=== PATIENT | female | born 1950 | race Caucasian/White ===

== ENCOUNTER 2016-05-24 22:19 | Emergency (ER) | payer OTHER ==
[~2016-05-24] VITALS: Ht 152.4 cm; Wt 93.5 kg
[~2016-05-24 22:19] MED LIST: AMLO5 PO; BRIL90TA PO; CAPT25TA2 PO; CHLO25CA2 PO; MELO-1 PO; METF500T PO; METO50TA PO; PANT20 PO; SIMV20TA PO; VENTAER INH
[2016-05-24 22:25] VITALS: BP 182/104; PULSE 100; RESP 20; TEMP 98.4
[2016-05-24 23:30] VITALS: BP 164/76; PULSE 100; O2SAT 97
[2016-05-24] MEDS ORDERED: [UNRECOGNIZED DRUG - REMARK] (23:39)
[2016-05-24] MEDS ORDERED: ACETAMINOPHEN 500 MG CPLT PO ONE (23:45)
[2016-05-24] MEDS ORDERED: guaiFENesin/DEXTROMETHORPHAN 200 MG/20 MG/10 ML CUP PO ONE (23:45)
[2016-05-24 23:53] LABS: AUTOMATED NEUTROPHIL # 8.3 TH/MM3 (1.8-7.7); BASOPHIL # 0.2 TH/MM3 (0-0.2); BASOPHIL % 1.2 % (0.0-2.0); EOSINOPHIL # 0.5 TH/MM3 (0-0.4); EOSINOPHIL % 4.2 % (0.0-4.0); HEMATOCRIT 39.7 % (35.0-46.0); HEMO FLAGS DIFF FINAL; LYMPH % 23.7 % (9.0-44.0); LYMPHOCYTE # 3.1 TH/MM3 (1.0-4.8); MEAN CELL VOLUME 81.3 FL (80.0-100.0); MEAN CORPUSCULAR HEMOGLOBIN 26.3 PG (27.0-34.0); MEAN CORPUSCULAR HGB CONC 32.4 % (32.0-36.0); NEUT % 64.9 % (16.0-70.0); PLATELET COUNT 572 TH/MM3 (150-450); RED BLOOD COUNT 4.88 MIL/MM3 (4.00-5.30); RED CELL DISTRIBUTION WIDTH 15.6 % (11.6-17.2); WHITE BLOOD COUNT 12.9 TH/MM3 (4.0-11.0)
--- NOTE | 2016-05-24 23:53 | PD ---
HPI Chief Complaint: Cold / Flu Symptoms Time Seen by Provider: 23:25 Travel History International Travel<30 days: No Contact w/Intl Traveler<30days: No Traveled to known affect area: No History of Present Illness HPI 65yo F with PMH of CAD, anxiety, noncardiac chest pain presents to the ED with c /o flu like symptoms. +Muscle aches. Pain is complaining of productive cough, tactile fever, bilateral ear pain, throat pain, and chest pain. States chest pain is across her chest and worst with coughing. Denies any significant sob, n /v, abdominal pain, focal weakness or numbness. PFSH Past Medical History Hx Anticoagulant Therapy: Yes Anemia: Yes Arthritis: Yes Asthma: No Autoimmune Disease: No Blood Disorders: Yes (anemia) Bipolar Disorder: Yes Anxiety: Yes Depression: Yes Heart Rhythm Problems: Yes Cancer: Yes Cardiac Catheterization: Yes Cardiovascular Problems: Yes High Cholesterol: No Chemotherapy: No Chest Pain: Yes Congestive Heart Failure: No COPD: No Cerebrovascular Accident: No Coronary Artery Disease: Yes Dementia: Yes Diabetes: Yes Patient Takes Glucophage: Yes Diminished Hearing: Yes (BILATERAL- [place]) Diverticulitis: Yes Endocrine: Yes Gastrointestinal Disorders: Yes GERD: Yes Glaucoma: No Genitourinary: Yes Headaches: Yes Hepatitis: No Hiatal Hernia: No Hypertension: Yes Immune Disorder: No Implanted Vascular Access Dvce: Yes Kidney Stones: Yes Musculoskeletal: Yes Neurologic: Yes Reproductive: No Respiratory: Yes (ASTHMA) Integumentary: Yes (chronic rash) Immunizations Current: No Migraines: No Myocardial Infarction: No Radiation Therapy: No Renal Failure: No Seizures: No Sickle Cell Disease: No Sleep Apnea: No Thyroid Disease: No Ulcer: No PNEUMOCCOCAL Vaccine (Year): 2 Menopausal: Yes : 1 Para: 1 Past Surgical History Abdominal Surgery: Yes (SPLENECTOMY, COLON RESECTION) AICD: No Appendectomy: Yes Arteriovenous Shunt: No Body Medical Devices: STENT Cardiac Surgery: Yes (STENT PLACED [place] CORONARY ARTERY SEPTEMBER 2006) Cholecystectomy: Yes Coronary Stent: Yes (09/09, 12/16) Ear Surgery: No Endocrine Surgery: No Eye Surgery: No Genitourinary Surgery: No Gynecologic Surgery: Yes (hysterectomy) Hysterectomy: Yes Insulin Pump: No Joint Replacement: No Neurologic Surgery: No Oral Surgery: Yes (ALL TEETH REMOVED) Pacemaker: No Thoracic Surgery: Yes (2005--BREAST R LUMPECTOMY) Other Surgery: Yes (R PARTIAL MASTECTOMY) Social History Alcohol Use: No Tobacco Use: No Substance Use: No Allergies-Medications (Allergen,Severity, Reaction): Coded Allergies: Cipro (Verified Allergy, Severe, HIVES, 02/01/16) Doxycycline (Verified Allergy, Severe, 'BUMPS', 02/01/16) Egg Allergy (Verified Allergy, Severe, Hives, 02/01/16) Haldol (Verified Allergy, Severe, ITCHING AND SWELLING, 02/01/16) Iodine (Verified Allergy, Severe, THROAT SWELLS, 02/01/16) Iohexol (OMNIPAQUE) (Verified Allergy, Severe, ITCHING AND SWELLING, 01/31) Penicillin (Verified Allergy, Severe, THROAT SWELLS, 02/01/16) Seafood (Verified Allergy, Severe, SWELLING, 02/01/16) Macrobid (Verified Allergy, Mild, Hives, 02/01/16) Reported Meds & Prescriptions Reported Meds & Active Scripts Active Proventil Hfa 6.7 GM Inh (Albuterol Sulfate) 90 Mcg/Act Aer 2 Puff INH Q4-6H PRN Zithromax Z-Damon (Azithromycin) 250 Mg Dspk 250 Mg PO DIRECTED 500 MG (2 tabs) day 1, then 1 tab days 2-5. Reported [blood tinners] Simvastatin 20 Mg Tab 20 Mg PO HS Protonix (Pantoprazole Sodium) 20 Mg Tab 20 Mg PO DAILY Metoprolol Tartrate 50 Mg Tab 50 Mg PO BID Metformin (Metformin HCl) 500 Mg Tab 500 Mg PO BIDPC With meals Meloxicam 15 Mg Tab 15 Mg PO DAILY Chlordiazepoxide (Chlordiazepoxide HCl) 25 Mg Cap 25 Mg PO TID PRN Captopril 25 Mg Tab 25 Mg PO BID Take 1 hr before meals. Brilinta (Ticagrelor) 90 Mg Tab 90 Mg PO BID Norvasc (Amlodipine Besylate) 5 Mg Tab 5 Mg PO DAILY Ventolin Hfa 18 GM Inh (Albuterol Sulfate) 90 Mcg/Act Aer 2 Puff INH Q6H PRN Review of Systems Except as stated in HPI: all other systems reviewed are Neg Physical Exam Narrative GENERAL: 65yo F not in distress. SKIN: Warm and dry. HEAD: Atraumatic. Normocephalic. EYES: Pupils equal and round. No scleral icterus. No injection or drainage. ENT: TM wnl bilaterally. Throat: Clear. Uvula midline. NECK: Trachea midline. No JVD. CARDIOVASCULAR: Regular rate and rhythm. No murmur appreciated. RESPIRATORY: No accessory muscle use. Clear to auscultation. Breath sounds equal bilaterally. CHEST WALL: +TTP across the chest wall. GASTROINTESTINAL: Abdomen soft, non-tender, nondistended. No rebound tenderness or guarding. MUSCULOSKELETAL: No obvious deformities. No clubbing. No cyanosis. No edema. NEUROLOGICAL: Awake and alert. No obvious cranial nerve deficits. Motor grossly within normal limits. Normal speech. PSYCHIATRIC: Anxious. Data Data Last Documented VS Vital Signs Date Time Temp Pulse Resp B/P Pulse Ox O2 Delivery O2 Flow Rate FiO2 05/25/16 03:01 98.1 84 172/90 94 Room Air 05/24/16 22:25 20 Orders Basic Metabolic Panel (Bmp) (05/24/16 23:36) Ckmb (Isoenzyme) Profile (05/24/16 23:36) Complete Blood Count With Diff (05/24/16 23:36) Prothrombin Time / Inr (Pt) (05/24/16 23:36) Act Partial Throm Time (Ptt) (05/24/16 23:36) Troponin I (05/24/16 23:36) Chest, Single Ap (05/24/16 23:36) Ecg Monitoring (05/24/16 23:36) Iv Access Insert/Monitor (05/24/16 23:36) Oximetry (05/24/16 23:36) Influenzae A/B Antigen (05/24/16 23:36) Lactic Acid Sepsis Protocol (05/24/16 23:36) Guaifen-Dm 200-20 Mg/10 Ml Liq (Robituss (05/24/16 23:45) Acetaminophen (Tylenol) (05/24/16 23:45) Azithromycin Inj (Zithromax Inj) (05/25/16 01:45) Sodium Chlorid 0.9% 500 Ml Inj (Ns 500 M (05/25/16 02:00) Azithromycin (Zithromax) (05/25/16 02:00) Electrocardiogram (05/24/16 ) Labs Laboratory Tests Test 05/24/16 05/25/16 23:41 02:00 White Blood Count 12.9 TH/MM3 Red Blood Count 4.88 MIL/MM3 Hemoglobin 12.8 GM/DL Hematocrit 39.7 % Mean Corpuscular Volume 81.3 FL Mean Corpuscular Hemoglobin 26.3 PG Mean Corpuscular Hemoglobin 32.4 % Concent Red Cell Distribution Width 15.6 % Platelet Count 572 TH/MM3 Mean Platelet Volume 8.0 FL Neutrophils (%) (Auto) 64.9 % Lymphocytes (%) (Auto) 23.7 % Monocytes (%) (Auto) 6.0 % Eosinophils (%) (Auto) 4.2 % Basophils (%) (Auto) 1.2 % Neutrophils # (Auto) 8.3 TH/MM3 Lymphocytes # (Auto) 3.1 TH/MM3 Monocytes # (Auto) 0.8 TH/MM3 Eosinophils # (Auto) 0.5 TH/MM3 Basophils # (Auto) 0.2 TH/MM3 CBC Comment DIFF FINAL Differential Comment Prothrombin Time 10.0 SEC Prothromb Time International 0.9 RATIO Ratio Activated Partial 30.3 SEC Thromboplast Time Sodium Level 139 MEQ/L Potassium Level 4.0 MEQ/L Chloride Level 104 MEQ/L Carbon Dioxide Level 25.4 MEQ/L Anion Gap 10 MEQ/L Blood Urea Nitrogen 12 MG/DL Creatinine 0.77 MG/DL Estimat Glomerular Filtration 75 ML/MIN Rate Random Glucose 309 MG/DL Lactic Acid Level 2.7 mmol/L 2.5 mmol/L Calcium Level 8.3 MG/DL Total Creatine Kinase 48 U/L Troponin I LESS THAN 0.02 NG/ML MDM Medical Decision Making Medical Screen Exam Complete: Yes Emergency Medical Condition: Yes Interpretation(s) EKG: NSR 84bpm. LAD. LVH. Mild ST depression I, aVL. Differential Diagnosis Influenza vs. URI vs. pneumonia vs. atypical chest pain Narrative Course 65yo F with flu like symptoms. Pt states her family is sick. Pt does have CAD and well known to Dr. Engel. Cardiac cath 09/20/14 showed patent LAD, severe distal LAD and severe obtuse marginal bifurcation lesion. Pt's chest pain is very atypical and more musculoskeletal related to coughing. Pt is afebrile but mildly tachycardic with 100bpm at triage. Saturating at 97% on RA. Pt seen at the end of my shift so sign out to next team to follow up labs including cardiac enzyme, lactic acid, CXR, influenza and reevaluate. Pt given acetaminophen, robitussin. Diagnosis Primary Impression: Atypical chest pain Scripts Albuterol 6.7 GM Inh (Proventil Hfa 6.7 GM Inh)90 Mcg/Act Aer2 Puff INH Q4-6H PRN (SHORTNESS OF BREATH) #1 INHALER Ref 0 Prov:Caroline Chapman MD 05/25/16 Azithromycin (Zithromax Z-Damon)250 Mg [id number] Mg PO DIRECTED #1 DSPK Ref 0 500 MG (2 tabs) day 1, then 1 tab days 2-5. Prov:Caroline Chapman MD 05/25/16 Yun Vines DO May 24, 2016 23:53
[2016-05-25 00:04] LABS: CHLORIDE 104 MEQ/L (98-107); SODIUM (NA) 139 MEQ/L (136-145)
[2016-05-25 00:07] LABS: ANION GAP 10 MEQ/L (5-15); BICARBONATE 25.4 MEQ/L (21.0-32.0); BLOOD UREA NITROGEN 12 MG/DL (7-18)
[2016-05-25 00:09] LABS: APTT (PATIENT) 30.3 SEC (24.3-30.1); INTERNATIONAL NORMALIZED RATIO 0.9 RATIO
--- NOTE | 2016-05-25 00:09 | PD ---
Physical Exam Date Seen by Provider: May 25, 2016 Time Seen by Provider: 00:09 Narrative Accepted in transfer of care from Dr. Vines GENERAL: Well-developed well-nourished female in no acute distress no respiratory distress SKIN: Warm and dry. HEAD: Normocephalic. EYES: No scleral icterus. No injection or drainage. NECK: Supple, trachea midline. No JVD or lymphadenopathy. CARDIOVASCULAR: Regular rate and rhythm without murmurs, gallops, or rubs. Chest wall: Tender to palpation and reproduces pain of presentation RESPIRATORY: Breath sounds equal bilaterally. No accessory muscle use. GASTROINTESTINAL: Abdomen soft, non-tender, nondistended. MUSCULOSKELETAL: No cyanosis, or edema. BACK: Nontender without obvious deformity. No CVA tenderness. Data Data Last Documented VS Vital Signs Date Time Temp Pulse Resp B/P Pulse Ox O2 Delivery O2 Flow Rate FiO2 05/24/16 23:36 Room Air 05/24/16 23:30 100 164/76 97 05/24/16 22:25 98.4 20 Orders Basic Metabolic Panel (Bmp) (05/24/16 23:36) Ckmb (Isoenzyme) Profile (05/24/16 23:36) Complete Blood Count With Diff (05/24/16 23:36) Prothrombin Time / Inr (Pt) (05/24/16 23:36) Act Partial Throm Time (Ptt) (05/24/16 23:36) Troponin I (05/24/16 23:36) Chest, Single Ap (05/24/16 23:36) Ecg Monitoring (05/24/16 23:36) Iv Access Insert/Monitor (05/24/16 23:36) Oximetry (05/24/16 23:36) Influenzae A/B Antigen (05/24/16 23:36) Lactic Acid Sepsis Protocol (05/24/16 23:36) Guaifen-Dm 200-20 Mg/10 Ml Liq (Robituss (05/24/16 23:45) Acetaminophen (Tylenol) (05/24/16 23:45) Azithromycin Inj (Zithromax Inj) (05/25/16 01:45) Sodium Chlorid 0.9% 500 Ml Inj (Ns 500 M (05/25/16 02:00) Azithromycin (Zithromax) (05/25/16 02:00) Labs Laboratory Tests Test 05/24/16 05/25/16 23:41 02:00 White Blood Count 12.9 TH/MM3 Red Blood Count 4.88 MIL/MM3 Hemoglobin 12.8 GM/DL Hematocrit 39.7 % Mean Corpuscular Volume 81.3 FL Mean Corpuscular Hemoglobin 26.3 PG Mean Corpuscular Hemoglobin 32.4 % Concent Red Cell Distribution Width 15.6 % Platelet Count 572 TH/MM3 Mean Platelet Volume 8.0 FL Neutrophils (%) (Auto) 64.9 % Lymphocytes (%) (Auto) 23.7 % Monocytes (%) (Auto) 6.0 % Eosinophils (%) (Auto) 4.2 % Basophils (%) (Auto) 1.2 % Neutrophils # (Auto) 8.3 TH/MM3 Lymphocytes # (Auto) 3.1 TH/MM3 Monocytes # (Auto) 0.8 TH/MM3 Eosinophils # (Auto) 0.5 TH/MM3 Basophils # (Auto) 0.2 TH/MM3 CBC Comment DIFF FINAL Differential Comment Prothrombin Time 10.0 SEC Prothromb Time International 0.9 RATIO Ratio Activated Partial 30.3 SEC Thromboplast Time Sodium Level 139 MEQ/L Potassium Level 4.0 MEQ/L Chloride Level 104 MEQ/L Carbon Dioxide Level 25.4 MEQ/L Anion Gap 10 MEQ/L Blood Urea Nitrogen 12 MG/DL Creatinine 0.77 MG/DL Estimat Glomerular Filtration 75 ML/MIN Rate Random Glucose 309 MG/DL Lactic Acid Level 2.7 mmol/L 2.5 mmol/L Calcium Level 8.3 MG/DL Total Creatine Kinase 48 U/L Troponin I LESS THAN 0.02 NG/ML [facility] Medical Record Reviewed: Yes Supervised Visit with DOMENIC: No Interpretation(s) Last Impressions Chest X-Ray 05/24/16 5776 Signed Impressions: Service Date/Time: Tuesday, May 24, 2016 23:45 - CONCLUSION: No acute disease. Reynaldo Mitchell MD CBC & BMP Diagram 05/24/16 23:41 Vital Signs Date Time Temp Pulse Resp B/P Pulse Ox O2 Delivery O2 Flow Rate FiO2 05/24/16 23:36 Room Air 05/24/16 23:30 100 164/76 97 Room Air 05/24/16 22:25 98.4 100 20 182/104 ck: 48, not elevated; troponin I: 0.02, not elevated Differential Diagnosis Please refer to Dr. Vines's dictation Narrative Course Accepted in transfer of care from Dr. Vines for follow-up of pending labs and patient disposition Chest x-ray reveals no lobar infiltrate; EKG reveals no ST elevation or injury pattern; cardiac enzymes are normal range; white count is elevated 12,900 and lactic acid is elevated, at this time is unclear but seems to be respiratory possible bronchitis. Patient ordered azithromycin 500 mg IV but patient refused IV antibiotics states that this is her heart enzymes are normal she wants to go home family at bedside; patient still administered NS bolus 500 ML and repeat bedside glucose obtained and patient administered oral azithromycin. They shouldn't does meet SIRS criteria based on her heart rate and her white blood cell count no obvious source but suspect that her infection source is a bronchitis possible pneumonia that is just not being detected By chest x-ray. Patient appears slightly dry renal function is normal mild elevated lactic of 2.7 addressed with hydration. Patient and family desirous of being discharged to home patient wasn't able antibiotic will give her a trial of outpatient therapy with close follow-up with primary care provider. Lactic acid deceasing with hydration ( just initiated shortly before obtaining second lactic specimen) . Diagnosis Primary Impression: Acute bronchitis Additional Impression: Diabetes Referrals: Primary Care Physician 1 day Patient Instructions: General Instructions Additional Instruction: Increase fluid hydration Complete course of antibiotic as prescribed Use inhaler as needed for wheezing cough/shortness of breath Monitor temperature every 4 hours with thermometer and take as needed acetaminophen/Tylenol every 4 hours for fever 100.4F or greater Follow-up with primary care provider call office in a.m. to schedule follow-up appointment Use [id number] Robitussin for cough Return to the emergency department for any concerns such as fever pain shortness of breath vomiting or change in condition Take chronic medications as chronically prescribed and monitor blood sugars closely Follow diabetic diet Med/Other Pt SpecificInfo: Prescription(s) given Scripts Albuterol 6.7 GM Inh (Proventil Hfa 6.7 GM Inh)90 Mcg/Act Aer2 Puff INH Q4-6H PRN (SHORTNESS OF BREATH) #1 INHALER Ref 0 Prov:Caroline Chapman MD 05/25/16 Azithromycin (Zithromax Z-Damon)250 Mg [id number] Mg PO DIRECTED #1 DSPK Ref 0 500 MG (2 tabs) day 1, then 1 tab days 2-5. Prov:Caroline Chapman MD 05/25/16 Disposition: 01 DISCHARGE HOME Condition: Stable Caroline Chapman MD May 25, 2016 00:09
[2016-05-25 00:10] LABS: GLOMERULAR FILTRATION RATE 75 ML/MIN (>89)
[2016-05-25 00:19] LABS: CREATINE KINASE 48 U/L (26-192)
--- NOTE | 2016-05-25 00:19 | RADHPO ---
EXAM DATE/TIME: 05/24/2016 23:45 [facility] COMPARISON: CHEST SINGLE AP, February 01, 2016, 1:57. INDICATIONS : Chest pain for 12 hours MEDICAL HISTORY : Diabetes mellitus type II. Cardiovascular disease SURGICAL HISTORY : None. ENCOUNTER: Initial ACUITY: 1 day PAIN SCORE: 6/10 LOCATION: Bilateral chest FINDINGS: Cardiomegaly. Clear lungs. Osseous structures are intact. Aortic calcification. Surgical clips overli e the right lower chest. CONCLUSION: No acute disease. Reynaldo Mitchell MD on May 25, 2016 at 0:17 Board Certified Radiologist. This report was verified electronically.
[2016-05-25] MEDS ORDERED: AZITHROMYCIN INJ 500 MG in SODIUM CHLOR 0.9% 250 ML INJ 250 ML IV ONE (01:45)
[2016-05-25 01:49] LABS: LACTIC ACID GHOST NOT REPORTABLE
[2016-05-25] MEDS ORDERED: SODIUM CHLORID 0.9% 500 ML INJ 500 ML IV ONE (02:00)
[2016-05-25] MEDS ORDERED: AZITHROMYCIN 250 MG TAB PO ONE (02:00)
[2016-05-25] MEDS ORDERED: ZITHTAB PO (02:51)
[2016-05-25] MEDS ORDERED: ALBU6.7H INH (02:51)
[2016-05-25 03:01] VITALS: BP 172/90; PULSE 84; TEMP 98.1; O2SAT 94
--- NOTE | 2016-05-25 14:40 | EKG ---
Date Performed: 05/24/2016 Time Performed: 22:45:26 PTAGE: 65 years EKG: Sinus rhythm . Left ventricular hypertrophy Lateral ST-T changes are probably due to ventricular hypertrophy Abnor mal ECG Compared to prior tracing no significant change PREVIOUS TRACING : 02/01/2016 00.32 DOCTOR: Hugo Engel Interpretating Date/Time 05/25/2016 14:38:00
== END 2016-05-25 03:09 | disposition home or self-care (01) ==
LOC: PHED 22:19
DX: R07.89 Other chest pain (principal); I25.10 Atherosclerotic heart disease of native coronary artery without angina pectoris; E11.9 Type 2 diabetes mellitus without complications; I10 Essential (primary) hypertension; J45.909 Unspecified asthma, uncomplicated; H92.03 Otalgia, bilateral; R05 Cough; Z95.5 Presence of coronary angioplasty implant and graft; Z79.01 Long term (current) use of anticoagulants
CPT/HCPCS: 71010; 80048; 82550; 83605; 84484; 85025; 85610; 85730; 87804; 93005; 99283

== ENCOUNTER 2016-08-06 21:43 | Emergency (ER) | payer OTHER ==
[~2016-08-06] VITALS: Ht 152.4 cm; Wt 72.0 kg
[~2016-08-06 21:43] MED LIST changes: +ALBU6.7H INH; +ZITHTAB PO; +[UNRECOGNIZED DRUG - REMARK]
[2016-08-06 21:46] VITALS: BP 191/98; PULSE 111; RESP 16; TEMP 98.2; O2SAT 95
[2016-08-06] MEDS ORDERED: chlordiazePOXIDE 25 MG CAP PO STA (22:13)
[2016-08-06] MEDS ORDERED: TICAGRELOR 90 MG TAB PO ONE (22:15)
[2016-08-06 22:20] VITALS: BP 173/82; PULSE 95; RESP 16; O2SAT 94
--- NOTE | 2016-08-06 22:24 | PD ---
HPI Chief Complaint: Chest Pain Time Seen by Provider: 22:06 Travel History International Travel<30 days: No Contact w/Intl Traveler<30days: No Traveled to known affect area: No History of Present Illness HPI This 65-year-old female complaining of chest pain. Says it feels like somebody is squeezing her breasts bilaterally. She has a history of coronary artery disease. She has had a recent cardiac catheter and medical management has been recommended. She is supposed be on the left. She ran out yesterday and took her last dose. She also has a history of anxiety and took her last dose of Librium yesterday and she says she is feeling extremely nervous. She does have a history of atypical chest pain related to anxiety. She has not been short of breath. PFSH Past Medical History Hx Anticoagulant Therapy: Yes Anemia: Yes Arthritis: Yes Asthma: No Autoimmune Disease: No Blood Disorders: Yes (anemia) Bipolar Disorder: Yes Anxiety: Yes Depression: Yes Heart Rhythm Problems: Yes Cancer: Yes Cardiac Catheterization: Yes Cardiovascular Problems: Yes High Cholesterol: No Chemotherapy: No Chest Pain: Yes Congestive Heart Failure: No COPD: No Cerebrovascular Accident: Yes Coronary Artery Disease: Yes Dementia: Yes Diabetes: Yes Diminished Hearing: Yes (BILATERAL- [place]) Diverticulitis: Yes Endocrine: Yes Gastrointestinal Disorders: Yes GERD: Yes Glaucoma: No Genitourinary: Yes Headaches: Yes Hepatitis: No Hiatal Hernia: No Hypertension: Yes Immune Disorder: No Implanted Vascular Access Dvce: Yes Kidney Stones: Yes Musculoskeletal: Yes Neurologic: Yes Reproductive: No Respiratory: Yes (ASTHMA) Integumentary: Yes (chronic rash) Immunizations Current: No Migraines: No Myocardial Infarction: No Radiation Therapy: No Renal Failure: No Seizures: No Sickle Cell Disease: No Sleep Apnea: No Thyroid Disease: No Ulcer: No PNEUMOCCOCAL Vaccine (Year): 2 ?: Not Menopausal: Yes : 1 Para: 1 Past Surgical History Abdominal Surgery: Yes (SPLENECTOMY, COLON RESECTION) AICD: No Appendectomy: Yes Arteriovenous Shunt: No Body Medical Devices: STENT Cardiac Surgery: Yes (STENT PLACED [place] CORONARY ARTERY SEPTEMBER 2006) Cholecystectomy: Yes Coronary Stent: Yes (09/09, 12/16) Ear Surgery: No Endocrine Surgery: No Eye Surgery: No Genitourinary Surgery: No Gynecologic Surgery: Yes (hysterectomy) Hysterectomy: Yes Insulin Pump: No Joint Replacement: No Neurologic Surgery: No Oral Surgery: Yes (ALL TEETH REMOVED) Pacemaker: No Thoracic Surgery: Yes (2005--BREAST R LUMPECTOMY) Other Surgery: Yes (R PARTIAL MASTECTOMY) Social History Alcohol Use: No Tobacco Use: No Substance Use: No Allergies-Medications (Allergen,Severity, Reaction): Coded Allergies: Cipro (Verified Allergy, Severe, HIVES, 08/06/16) Doxycycline (Verified Allergy, Severe, 'BUMPS', 08/06/16) Egg Allergy (Verified Allergy, Severe, Hives, 08/06/16) Haldol (Verified Allergy, Severe, ITCHING AND SWELLING, 08/06/16) Iodine (Verified Allergy, Severe, THROAT SWELLS, 08/06/16) Iohexol (OMNIPAQUE) (Verified Allergy, Severe, ITCHING AND SWELLING, ) Penicillin (Verified Allergy, Severe, THROAT SWELLS, 08/06/16) Seafood (Verified Allergy, Severe, SWELLING, 08/06/16) Macrobid (Verified Allergy, Mild, Hives, 08/06/16) Reported Meds & Prescriptions Reported Meds & Active Scripts Active Proventil Hfa 6.7 GM Inh (Albuterol Sulfate) 90 Mcg/Act Aer 2 Puff INH Q4-6H PRN Reported [blood tinners] Simvastatin 20 Mg Tab 20 Mg PO HS Protonix (Pantoprazole Sodium) 20 Mg Tab 20 Mg PO DAILY Metoprolol Tartrate 50 Mg Tab 50 Mg PO BID Metformin (Metformin HCl) 500 Mg Tab 500 Mg PO BIDPC With meals Chlordiazepoxide (Chlordiazepoxide HCl) 25 Mg Cap 25 Mg PO TID PRN Captopril 25 Mg Tab 25 Mg PO BID Take 1 hr before meals. Brilinta (Ticagrelor) 90 Mg Tab 90 Mg PO BID Norvasc (Amlodipine Besylate) 5 Mg Tab 5 Mg PO DAILY Ventolin Hfa 18 GM Inh (Albuterol Sulfate) 90 Mcg/Act Aer 2 Puff INH Q6H PRN Review of Systems General / Constitutional: No: Fever, Chills Eyes: No: Diploplia, Blurred Vision HENT: No: Headaches, Vertigo Cardiovascular: Positive: Chest Pain or Discomfort, No: Palpitations Respiratory: No: Cough, Shortness of Breath Gastrointestinal: No: Nausea, Vomiting Genitourinary: No: Urgency, Frequency Musculoskeletal: No: Myalgias, Arthralgias Physical Exam Narrative GENERAL: Well-developed female SKIN: Focused skin assessment warm/dry. HEAD: Atraumatic. Normocephalic. EYES: Pupils equal and round. No scleral icterus. No injection or drainage. ENT: No nasal bleeding or discharge. Mucous membranes pink and moist. NECK: Trachea midline. No JVD. CARDIOVASCULAR: Regular rate and rhythm. No murmur appreciated. RESPIRATORY: No accessory muscle use. Clear to auscultation. Breath sounds equal bilaterally. There is bilateral anterior chest wall tenderness GASTROINTESTINAL: Abdomen soft, non-tender, nondistended. Hepatic and splenic margins not palpable. MUSCULOSKELETAL: No obvious deformities. No clubbing. No cyanosis. No edema. NEUROLOGICAL: Awake and alert. No obvious cranial nerve deficits. Motor grossly within normal limits. Normal speech. PSYCHIATRIC: Appropriate mood and affect; insight and judgment normal. Data Data Last Documented VS Vital Signs Date Time Temp Pulse Resp B/P Pulse Ox O2 Delivery O2 Flow Rate FiO2 08/06/16 22:20 95 16 173/82 94 Room Air 08/06/16 21:46 98.2 Orders Chlordiazepoxide (Librium) (08/06/16 22:13) Ticagrelor (Brilinta) (08/06/16 22:15) Electrocardiogram (08/06/16 22:15) Complete Blood Count With Diff (08/06/16 22:15) Basic Metabolic Panel (Bmp) (08/06/16 22:15) Troponin I (08/06/16 22:15) Chest, Single Ap (08/06/16 22:15) Labs Laboratory Tests Test 08/06/16 23:00 White Blood Count 11.9 TH/MM3 Red Blood Count 5.07 MIL/MM3 Hemoglobin 13.1 GM/DL Hematocrit 41.1 % Mean Corpuscular Volume 81.2 FL Mean Corpuscular Hemoglobin 25.9 PG Mean Corpuscular Hemoglobin 32.0 % Concent Red Cell Distribution Width 15.3 % Platelet Count 544 TH/MM3 Mean Platelet Volume 8.1 FL Neutrophils (%) (Auto) 57.2 % Lymphocytes (%) (Auto) 31.8 % Monocytes (%) (Auto) 8.2 % Eosinophils (%) (Auto) 2.1 % Basophils (%) (Auto) 0.7 % Neutrophils # (Auto) 6.8 TH/MM3 Lymphocytes # (Auto) 3.8 TH/MM3 Monocytes # (Auto) 1.0 TH/MM3 Eosinophils # (Auto) 0.2 TH/MM3 Basophils # (Auto) 0.1 TH/MM3 CBC Comment DIFF FINAL Differential Comment Sodium Level 139 MEQ/L Potassium Level 4.0 MEQ/L Chloride Level 102 MEQ/L Carbon Dioxide Level 28.7 MEQ/L Anion Gap 8 MEQ/L Blood Urea Nitrogen 13 MG/DL Creatinine 0.68 MG/DL Estimat Glomerular Filtration 87 ML/MIN Rate Random Glucose 197 MG/DL Calcium Level 8.7 MG/DL Troponin I LESS THAN 0.02 NG/ML MDM Medical Decision Making Medical Screen Exam Complete: Yes Emergency Medical Condition: Yes Medical Record Reviewed: Yes Differential Diagnosis Differential includes coronary artery disease, atypical chest pain, anxiety Narrative Course This pain is very atypical. Her EKG is normal and troponin is negative. She will be released with recommendations to return if increasing pain Diagnosis Primary Impression: Atypical chest pain Additional Instructions: Return if increasing chest pain Scripts [chlordiazepoxide] No Conflict Check25 Mg PO TID #30 Prov:Rosas Pan MD 08/06/16 Ticagrelor (Brilinta)90 Mg Tab90 Mg PO BID #60 TAB Ref 0 Prov:Rosas Pan MD 08/06/16 Disposition: 01 DISCHARGE HOME Condition: Stable Rosas Pan MD Aug 06, 2016 22:24
--- NOTE | 2016-08-06 22:36 | RADHPO ---
EXAM DATE/TIME: 08/06/2016 22:22 [facility] COMPARISON: CHEST SINGLE AP, May 24, 2016, 23:45. INDICATIONS : Chest pain. MEDICAL HISTORY : Cardiovascular disease. Diabetes mellitus type II. SURGICAL HISTORY : None. ENCOUNTER: Initial ACUITY: 1 day PAIN SCORE: 5/10 LOCATION: Bilateral chest FINDINGS: A single view of the chest demonstrates the lungs to be symmetrically aerated without evidence of mas s, infiltrate or effusion. The cardiomediastinal contours are unremarkable. Osseous structures are intact. Surgical clips overlie the right chest. CONCLUSION: No acute disease. Jxa Cohen MD on August 06, 2016 at 22:34 Board Certified Radiologist. This report was verified electronically.
[2016-08-06 23:20] VITALS: BP 175/84; PULSE 74; RESP 16; O2SAT 94
[2016-08-06 23:20] LABS: AUTOMATED NEUTROPHIL # 6.8 TH/MM3 (1.8-7.7); BASOPHIL # 0.1 TH/MM3 (0-0.2); BASOPHIL % 0.7 % (0.0-2.0); CHLORIDE 102 MEQ/L (98-107); EOSINOPHIL # 0.2 TH/MM3 (0-0.4); EOSINOPHIL % 2.1 % (0.0-4.0); HEMATOCRIT 41.1 % (35.0-46.0); HEMO FLAGS DIFF FINAL; LYMPH % 31.8 % (9.0-44.0); LYMPHOCYTE # 3.8 TH/MM3 (1.0-4.8); MEAN CELL VOLUME 81.2 FL (80.0-100.0); MEAN CORPUSCULAR HEMOGLOBIN 25.9 PG (27.0-34.0); MONO % 8.2 % (0.0-8.0); NEUT % 57.2 % (16.0-70.0); PLATELET COUNT 544 TH/MM3 (150-450); RED BLOOD COUNT 5.07 MIL/MM3 (4.00-5.30); RED CELL DISTRIBUTION WIDTH 15.3 % (11.6-17.2); SODIUM (NA) 139 MEQ/L (136-145); WHITE BLOOD COUNT 11.9 TH/MM3 (4.0-11.0)
[2016-08-06 23:23] LABS: ANION GAP 8 MEQ/L (5-15); BICARBONATE 28.7 MEQ/L (21.0-32.0); BLOOD UREA NITROGEN 13 MG/DL (7-18)
[2016-08-06 23:27] LABS: GLOMERULAR FILTRATION RATE 87 ML/MIN (>89)
[2016-08-06] MEDS ORDERED: CHLORDIAZEPOXIDE PO (23:42)
[2016-08-06] MEDS ORDERED: BRIL90TA PO (23:42)
--- NOTE | 2016-08-07 11:21 | EKG ---
Date Performed: 08/06/2016 Time Performed: 21:55:40 PTAGE: 65 years EKG: Sinus tachycardia. Left ventricular hypertrophy Lateral ST-T changes are probably due to ve ntricular hypertrophy Abnormal ECG Compared to prior tracing no significant change PREVIOUS TRACING : 05/24/2016 22.45 DOCTOR: Manuel Colbert Interpretating Date/Time 08/07/2016 11:18:06
== END 2016-08-07 00:03 | disposition home or self-care (01) ==
LOC: PHED 21:43
DX: R07.89 Other chest pain (principal); R94.31 Abnormal electrocardiogram [ECG] [EKG]; E11.9 Type 2 diabetes mellitus without complications; I10 Essential (primary) hypertension; F03.90 Unspecified dementia, unspecified severity, without behavioral disturbance, psychotic disturbance, mood disturbance, and anxiety; H91.93 Unspecified hearing loss, bilateral; Z79.84 Long term (current) use of oral hypoglycemic drugs; Z79.01 Long term (current) use of anticoagulants; Z86.79 Personal history of other diseases of the circulatory system; Z86.59 Personal history of other mental and behavioral disorders; Z86.2 Personal history of diseases of the blood and blood-forming organs and certain disorders involving the immune mechanism; Z87.39 Personal history of other diseases of the musculoskeletal system and connective tissue; Z87.19 Personal history of other diseases of the digestive system; Z87.448 Personal history of other diseases of urinary system; Z86.69 Personal history of other diseases of the nervous system and sense organs
CPT/HCPCS: 71010; 80048; 84484; 85025; 93005

== ENCOUNTER 2016-10-24 00:40 | Emergency (ER) | payer OTHER ==
[~2016-10-24] VITALS: Ht 157.5 cm; Wt 91.6 kg
[~2016-10-24 00:40] MED LIST changes: +CHLORDIAZEPOXIDE PO; -MELO-1 PO; -ZITHTAB PO
[2016-10-24 00:52] VITALS: BP 173/82; PULSE 93; RESP 18; TEMP 98.4; O2SAT 97
[2016-10-24] MEDS ORDERED: OMEP20TA PO (01:01)
[2016-10-24] MEDS ORDERED: CHLO25CA9 PO (01:01)
[2016-10-24] MEDS ORDERED: ALBU.5I NEB (01:01)
[2016-10-24 02:26] VITALS: BP 176/83; PULSE 89; RESP 16; O2SAT 98
--- NOTE | 2016-10-24 02:34 | PD ---
HPI Chief Complaint: Chest Pain Time Seen by Provider: 02:18 Travel History International Travel<30 days: No Contact w/Intl Traveler<30days: No Traveled to known affect area: No History of Present Illness HPI The patient is a 65-year-old female with no known history of heart disease who has had chest pain since before August of this year on and off. The pain is located on the right side of her chest anteriorly and sharp and pleuritic. She denies any nausea, diaphoresis or shortness of breath. There is no radiation of pain. She does complain of pain in the right elbow but this was reproducible by pressing on the right elbow. She does not smoke but does have [id number] diabetes, elevated cholesterol and hypertension as well as obesity. The patient is a frequent visitor to the emergency department. The patient does belch frequently. She states she had a normal stress test approximately 9 months ago. PFSH Past Medical History Hx Anticoagulant Therapy: Yes Anemia: Yes Arthritis: Yes Asthma: No Autoimmune Disease: No Blood Disorders: Yes (anemia) Bipolar Disorder: Yes Anxiety: Yes Depression: Yes Heart Rhythm Problems: Yes Cancer: Yes Cardiac Catheterization: Yes Cardiovascular Problems: Yes High Cholesterol: No Chemotherapy: No Chest Pain: Yes Congestive Heart Failure: No COPD: No Cerebrovascular Accident: Yes Coronary Artery Disease: Yes Dementia: Yes Diabetes: Yes Patient Takes Glucophage: Yes Diminished Hearing: Yes (BILATERAL- [place]) Diverticulitis: Yes Endocrine: Yes Gastrointestinal Disorders: Yes GERD: Yes Glaucoma: No Genitourinary: Yes Headaches: Yes Hepatitis: No Hiatal Hernia: No Hypertension: Yes Immune Disorder: No Implanted Vascular Access Dvce: Yes Kidney Stones: Yes Musculoskeletal: Yes Neurologic: Yes Reproductive: No Respiratory: Yes (ASTHMA) Integumentary: Yes (chronic rash) Immunizations Current: No Migraines: No Myocardial Infarction: Yes Radiation Therapy: No Renal Failure: No Seizures: No Sickle Cell Disease: No Sleep Apnea: No Thyroid Disease: No Ulcer: No PNEUMOCCOCAL Vaccine (Year): 2 ?: Not Menopausal: Yes : 1 Para: 1 Past Surgical History Abdominal Surgery: Yes (SPLENECTOMY, COLON RESECTION) AICD: No Appendectomy: Yes Arteriovenous Shunt: No Body Medical Devices: STENT Cardiac Surgery: Yes (STENT PLACED [place] CORONARY ARTERY SEPTEMBER 2006) Cholecystectomy: Yes Coronary Stent: Yes (09/09, 10/14) Ear Surgery: No Endocrine Surgery: No Eye Surgery: No Genitourinary Surgery: No Gynecologic Surgery: Yes (hysterectomy) Hysterectomy: Yes Insulin Pump: No Joint Replacement: No Neurologic Surgery: No Oral Surgery: Yes (ALL TEETH REMOVED) Pacemaker: No Thoracic Surgery: Yes (2005--BREAST R LUMPECTOMY) Other Surgery: Yes (R PARTIAL MASTECTOMY) Social History Alcohol Use: No Tobacco Use: No Substance Use: No Allergies-Medications (Allergen,Severity, Reaction): Coded Allergies: Fish Containing Products (Unverified Allergy, Severe, SWELLING, 10/18/16) ciprofloxacin (Unverified Allergy, Severe, HIVES, 10/18/16) doxycycline (Unverified Allergy, Severe, 'BUMPS', 10/18/16) egg (Unverified Allergy, Severe, Hives, 10/18/16) haloperidol (Unverified Allergy, Severe, ITCHING AND SWELLING, 10/18/16) iodine (Unverified Allergy, Severe, THROAT SWELLS, 10/18/16) iohexol (Unverified Allergy, Severe, ITCHING AND SWELLING, 10/18/16) penicillin G (Unverified Allergy, Severe, THROAT SWELLS, 10/18/16) potassium iodide (Unverified Allergy, Severe, THROAT SWELLS, 10/18/16) povidone-iodine (Unverified Allergy, Severe, THROAT SWELLS, 10/18/16) sodium iodide (Unverified Allergy, Severe, THROAT SWELLS, 10/18/16) sodium iodide (Unverified Allergy, Severe, THROAT SWELLS, 10/18/16) nitrofurantoin (Unverified Allergy, Mild, Hives, 10/18/16) Reported Meds & Prescriptions Reported Meds & Active Scripts Active Brilinta (Ticagrelor) 90 Mg Tab 90 Mg PO BID Reported Omeprazole 20 Mg Tab 20 Mg PO DAILY Chlordiazepoxide HCl 25 Mg Capsule 25 Mg PO TID PRN Albuterol Neb (Albuterol Sulfate) 2.5 Mg/0.5 Ml Neb 2.5 Mg NEB Q6HR NEB PRN Note: The Albuterol Sulfate Inhalation Solution is concentrated and must be diluted. Read complete instructions carefully before using. Simvastatin 20 Mg Tab 20 Mg PO HS Metoprolol Tartrate 50 Mg Tab 50 Mg PO BID Metformin (Metformin HCl) 500 Mg Tab 500 Mg PO BIDPC With meals Captopril 25 Mg Tab 25 Mg PO BID Take 1 hr before meals. Norvasc (Amlodipine Besylate) 5 Mg Tab 5 Mg PO DAILY Ventolin Hfa 18 GM Inh (Albuterol Sulfate) 90 Mcg/Act Aer 2 Puff INH Q6H PRN Review of Systems Except as stated in HPI: all other systems reviewed are Neg Physical Exam Narrative GENERAL: The patient is obese, alert, oriented 3, anxious in minimal apparent distress with her right anterior chest discomfort. Her vital signs show blood pressure 173/82 but otherwise normal. SKIN: Focused skin assessment warm/dry. No skin rashes noted. HEAD: Atraumatic. Normocephalic. EYES: Pupils equal and round. No scleral icterus. No injection or drainage. ENT: No nasal bleeding or discharge. Mucous membranes pink and moist. NECK: Trachea midline. No JVD. CARDIOVASCULAR: Regular rate and rhythm. No murmur appreciated. I can completely reproduce the chest pain by pressing on the chest wall. RESPIRATORY: No accessory muscle use. Breath sounds equal bilaterally. Lungs clear to auscultation bilaterally GASTROINTESTINAL: Abdomen soft, non-tender, nondistended. Hepatic and splenic margins not palpable. MUSCULOSKELETAL: No obvious deformities. No clubbing. No cyanosis. No edema. NEUROLOGICAL: Awake and alert. No obvious cranial nerve deficits. Motor grossly within normal limits. Normal speech. PSYCHIATRIC: The patient is anxious, insight and judgment normal. Data Data Last Documented VS Vital Signs Date Time Temp Pulse Resp B/P (MAP) Pulse Ox O2 Delivery O2 Flow Rate FiO2 10/24/16 00:52 98.4 93 18 173/82 (112) 97 10/24/16 00:52 Room Air Orders Orders Electrocardiogram (10/24/16 00:46) [facility] Medical Decision Making Medical Screen Exam Complete: Yes Emergency Medical Condition: Yes Medical Record Reviewed: Yes Interpretation(s) The EKG shows sinus rhythm with a rate of [address] elevation or depression. It does show some left ventricular hypertrophy. The EKG shows no change from an EKG done on 06 August of this year. Differential Diagnosis Chest wall pain, pleuritic pain, gastrointestinal pain, chest pain etiology undetermined, acute coronary syndrome Narrative Course The patient does have risk factors but this appears to be identical pain going on intermittently since before 06 August of this year. She is to follow-up with her primary care physician. The patient has had a stress test 9 months ago which was normal. Diagnosis Primary Impression: Atypical chest pain Additional Instructions: This appears to be chest wall pain. Follow-up with her primary care physician. Disposition: 01 DISCHARGE HOME Condition: Stable Marvin Mccabe MD Oct 24, 2016 02:34
--- NOTE | 2016-10-24 13:54 | EKG ---
Date Performed: 10/24/2016 Time Performed: 00:53:03 PTAGE: 65 years EKG: Sinus rhythm LEFT VENTRICULAR HYPERTROPHY AND ST-T CHANGE ABNORMAL ECG PREVIOUS TRACING : 08/06/2016 21.55 Since the prior tracing, there has been improvement in the lateral ST segment changes. No other significant serial change. DOCTOR: Bambi Morales Interpretating Date/Time 10/24/2016 13:53:08
== END 2016-10-24 02:55 | disposition home or self-care (01) ==
LOC: PHED 00:40
DX: R07.89 Other chest pain (principal); E11.9 Type 2 diabetes mellitus without complications; I10 Essential (primary) hypertension; E66.9 Obesity, unspecified
CPT/HCPCS: 93005; 99283

== ENCOUNTER 2016-11-13 14:47 | Emergency (ER) | payer OTHER ==
[~2016-11-13] VITALS: Ht 152.4 cm; Wt 92.6 kg
[~2016-11-13 14:47] MED LIST changes: +ALBU.5I NEB; -ALBU6.7H INH; -CHLO25CA2 PO; +CHLO25CA9 PO; -CHLORDIAZEPOXIDE PO; +OMEP20TA PO; -PANT20 PO; -[UNRECOGNIZED DRUG - REMARK]
[2016-11-13 16:04] VITALS: BP 186/93; PULSE 94; RESP 16; TEMP 98.4; O2SAT 94
[2016-11-13] MEDS ORDERED: BACT800T5 PO (18:56)
[2016-11-13] MEDS ORDERED: SULFAMETHOXAZOLE-TRIMETHOPRIM DS 800-160 MG TAB PO ONE (19:00)
--- NOTE | 2016-11-13 19:10 | PD ---
HPI Chief Complaint: Skin Problem Time Seen by Provider: 18:46 Travel History International Travel<30 days: No Contact w/Intl Traveler<30days: No History of Present Illness HPI 65-year-old female that presents to the ED for evaluation of insect bite to her right posterior leg. Patient has had this since today. Per patient she wasn't sure what bit her. Per patient she was just an insect. Possible was. Per patient the pain was severe and she had nausea. Patient came here to get evaluated for this. She denies any other medical issue at this time. No chest pain or shortness of breath. She is able to ambulate with it. Multiple allergies to different antibiotics. Patient states that she is up-to-date with her tetanus. PFSH Past Medical History Hx Anticoagulant Therapy: Yes Anemia: Yes Arthritis: Yes Asthma: No Autoimmune Disease: No Blood Disorders: Yes (anemia) Bipolar Disorder: Yes Anxiety: Yes Depression: Yes Heart Rhythm Problems: Yes Cancer: Yes Cardiac Catheterization: Yes Cardiovascular Problems: Yes High Cholesterol: No Chemotherapy: No Chest Pain: Yes Congestive Heart Failure: No COPD: No Cerebrovascular Accident: Yes Coronary Artery Disease: Yes Dementia: Yes Diabetes: Yes Diminished Hearing: Yes (BILATERAL- [place]) Diverticulitis: Yes Endocrine: Yes Gastrointestinal Disorders: Yes GERD: Yes Glaucoma: No Genitourinary: Yes Headaches: Yes Hepatitis: No Hiatal Hernia: No Hypertension: Yes Immune Disorder: No Implanted Vascular Access Dvce: Yes Kidney Stones: Yes Musculoskeletal: Yes Neurologic: Yes Reproductive: No Respiratory: Yes (ASTHMA) Integumentary: Yes (chronic rash) Immunizations Current: No Migraines: No Myocardial Infarction: Yes Radiation Therapy: No Renal Failure: No Seizures: No Sickle Cell Disease: No Sleep Apnea: No Thyroid Disease: No Ulcer: No PNEUMOCCOCAL Vaccine (Year): 2 Menopausal: Yes : 1 Para: 1 Past Surgical History Abdominal Surgery: Yes (SPLENECTOMY, COLON RESECTION) AICD: No Appendectomy: Yes Arteriovenous Shunt: No Body Medical Devices: STENT Cardiac Surgery: Yes (STENT PLACED [place] CORONARY ARTERY SEPTEMBER 2006) Cholecystectomy: Yes Coronary Stent: Yes (09/09, 12/16) Ear Surgery: No Endocrine Surgery: No Eye Surgery: No Genitourinary Surgery: No Gynecologic Surgery: Yes (hysterectomy) Hysterectomy: Yes Insulin Pump: No Joint Replacement: No Neurologic Surgery: No Oral Surgery: Yes (ALL TEETH REMOVED) Pacemaker: No Thoracic Surgery: Yes (2005--BREAST R LUMPECTOMY) Other Surgery: Yes (R PARTIAL MASTECTOMY) Social History Alcohol Use: No Tobacco Use: No Substance Use: No Allergies-Medications (Allergen,Severity, Reaction): Coded Allergies: Fish Containing Products (Unverified Allergy, Severe, SWELLING, 11/13/16) ciprofloxacin (Unverified Allergy, Severe, HIVES, 11/13/16) doxycycline (Unverified Allergy, Severe, 'BUMPS', 11/13/16) egg (Unverified Allergy, Severe, Hives, 11/13/16) haloperidol (Unverified Allergy, Severe, ITCHING AND SWELLING, 11/13/16) iodine (Unverified Allergy, Severe, THROAT SWELLS, 11/13/16) iohexol (Unverified Allergy, Severe, ITCHING AND SWELLING, 11/13/16) penicillin G (Unverified Allergy, Severe, THROAT SWELLS, 11/13/16) potassium iodide (Unverified Allergy, Severe, THROAT SWELLS, 11/13/16) povidone-iodine (Unverified Allergy, Severe, THROAT SWELLS, 11/13/16) sodium iodide (Unverified Allergy, Severe, THROAT SWELLS, 11/13/16) sodium iodide (Unverified Allergy, Severe, THROAT SWELLS, 11/13/16) nitrofurantoin (Unverified Allergy, Mild, Hives, 11/13/16) Reported Meds & Prescriptions Reported Meds & Active Scripts Active Bactrim DS (Sulfamethoxazole-Trimethoprim) 800-160 Mg Tab 1 Tab PO BID 10 Days Brilinta (Ticagrelor) 90 Mg Tab 90 Mg PO BID Reported Omeprazole 20 Mg Tab 20 Mg PO DAILY Chlordiazepoxide HCl 25 Mg Capsule 25 Mg PO TID PRN Albuterol Neb (Albuterol Sulfate) 2.5 Mg/0.5 Ml Neb 2.5 Mg NEB Q6HR NEB PRN Note: The Albuterol Sulfate Inhalation Solution is concentrated and must be diluted. Read complete instructions carefully before using. Simvastatin 20 Mg Tab 20 Mg PO HS Metoprolol Tartrate 50 Mg Tab 50 Mg PO BID Metformin (Metformin HCl) 500 Mg Tab 500 Mg PO BIDPC With meals Captopril 25 Mg Tab 25 Mg PO BID Take 1 hr before meals. Norvasc (Amlodipine Besylate) 5 Mg Tab 5 Mg PO DAILY Ventolin Hfa 18 GM Inh (Albuterol Sulfate) 90 Mcg/Act Aer 2 Puff INH Q6H PRN Review of Systems Except as stated in HPI: all other systems reviewed are Neg Physical Exam Narrative GENERAL: SKIN: Warm and dry. Patient has a small insect bite like lesion on the posterior aspect of the right leg. Around the knee area. Slightly tender. Minimal bleeding noted. Blistering noted. HEAD: Atraumatic. Normocephalic. EYES: Pupils equal and round. No scleral icterus. No injection or drainage. ENT: No nasal bleeding or discharge. Mucous membranes pink and moist. Tongue is midline. No uvula deviation. NECK: Trachea midline. No JVD. CARDIOVASCULAR: Regular rate and rhythm. No murmurs, S3, S4. RESPIRATORY: No accessory muscle use. Clear to auscultation. Breath sounds equal bilaterally. GASTROINTESTINAL: Abdomen soft, non-tender, nondistended. Hepatic and splenic margins not palpable. MUSCULOSKELETAL: Extremities without clubbing, cyanosis, or edema. No obvious deformities. Full range of motion of the upper and lower extremities bilaterally. 2+ pulses bilaterally. NEUROLOGICAL: Awake and alert. No obvious cranial nerve deficits. Motor grossly within normal limits. Five out of 5 muscle strength in the arms and legs. Normal speech. PSYCHIATRIC: Appropriate mood and affect; insight and judgment normal. Data Data Last Documented VS Vital Signs Date Time Temp Pulse Resp B/P (MAP) Pulse Ox O2 Delivery O2 Flow Rate FiO2 11/13/16 16:04 98.4 94 16 186/93 (124) 94 Orders Orders Sulfamet-Trimeth Ds 800-160 Mg (Bactrim (11/13/16 19:00) [facility] Medical Decision Making Medical Screen Exam Complete: Yes Emergency Medical Condition: Yes Medical Record Reviewed: Yes Differential Diagnosis Insect sting versus insect bite versus cellulitis Narrative Course 65-year-old female that presents to the ED for evaluation of possible insect bite. Patient was properly examined and was found to have signs and symptoms consistent appears to be in secondary to admission. No sign of acute distress. Possible infection noted. At this time recommend trial of Bactrim. Patient was given first dose here. Told to apply ice or warm compresses. Benadryl his age. See ED worsening symptoms. Follow up with PCP. Diagnosis Primary Impression: Insect bite Qualified Codes: W57.XXXA - Bitten or stung by nonvenomous insect and other nonvenomous arthropods, initial encounter Patient Instructions: General Instructions Additional Instructions: Take medication as prescribed. Motrin or tylenol for pain. Benadryl as needed if itchy. See ED worsening symptoms. Ice or warm compresses. Med/Other Pt SpecificInfo: Prescription(s) given Scripts Sulfamethoxazole-Trimethoprim (Bactrim DS) 800-160 Mg Tab 1 TAB PO BID for Infection for 10 Days, TAB 0 Refills Prov: Angel Luis Dobbins MD 11/13/16 Disposition: 01 DISCHARGE HOME Condition: Stable Zack Garza Nov 13, 2016 19:10
== END 2016-11-13 19:34 | disposition home or self-care (01) ==
LOC: PHED 14:47 → PHEFT 19:34
DX: S81.851A Open bite, right lower leg, initial encounter (principal); W57.XXXA Bitten or stung by nonvenomous insect and other nonvenomous arthropods, initial encounter; E11.9 Type 2 diabetes mellitus without complications; F03.90 Unspecified dementia, unspecified severity, without behavioral disturbance, psychotic disturbance, mood disturbance, and anxiety; I10 Essential (primary) hypertension; I25.10 Atherosclerotic heart disease of native coronary artery without angina pectoris; I25.2 Old myocardial infarction; J45.909 Unspecified asthma, uncomplicated; K21.9 Gastro-esophageal reflux disease without esophagitis; Z86.73 Personal history of transient ischemic attack (TIA), and cerebral infarction without residual deficits; Z88.0 Allergy status to penicillin; Z95.5 Presence of coronary angioplasty implant and graft
CPT/HCPCS: 99283

== ENCOUNTER 2017-01-02 19:15 | Observation (INO) | payer OTHER ==
[~2017-01-02] VITALS: Ht 157.5 cm; Wt 99.2 kg
[~2017-01-02 19:15] MED LIST changes: +BACT800T5 PO
[2017-01-02 19:30] VITALS: BP 178/85; PULSE 116; RESP 20; TEMP 97.7
[2017-01-02 19:40] VITALS: BP_SYST 186; BP_SYST 192; BP_DIAS 86; BP_DIAS 88; PULSE 103; RESP 18; O2SAT 99
[2017-01-02] MEDS ORDERED: ASPIRIN 81 MG CHEW TAB PO ONE (19:45)
[2017-01-02] MEDS ORDERED: LABETALOL HCL 100 MG/20 ML VIAL IV PUSH ONE (19:45)
[2017-01-02] MEDS ORDERED: SODIUM CHLORIDE 0.9% FLUSH 10 ML FLUSH IVF PRN (19:45)
[2017-01-02] MEDS ORDERED: NITROGLYCERIN 2% OINT 1 GM PACKET TOP ONE (19:45)
--- NOTE | 2017-01-02 19:47 | PD ---
HPI Chief Complaint: Chest Pain Time Seen by Provider: 19:43 Travel History International Travel<30 days: No Contact w/Intl Traveler<30days: No Traveled to known affect area: No History of Present Illness HPI 66-year-old female with history of diabetes, hypertension, atrial flutter, CAD, cardiac stents, on brilinta, here for evaluation of chest pain, tachycardia, and elevated blood pressure. Symptoms started about 1 hour prior to arrival while at rest. Currently she is complaining of substernal chest pain described as pressure/ache, 4 out of 10, no modifying factors, nonradiating. No paresthesias or motor deficits. No fevers, chills, cough, or recent illness. She feels slightly short of breath. No history of DVT or PE. PFSH Past Medical History Hx Anticoagulant Therapy: Yes Anemia: Yes Arthritis: Yes Asthma: No Autoimmune Disease: No Blood Disorders: Yes (anemia) Bipolar Disorder: Yes Anxiety: Yes Depression: Yes Heart Rhythm Problems: Yes Cancer: Yes Cardiac Catheterization: Yes Cardiovascular Problems: Yes High Cholesterol: No Chemotherapy: No Chest Pain: Yes Congestive Heart Failure: No COPD: No Cerebrovascular Accident: Yes Coronary Artery Disease: Yes Dementia: Yes Diabetes: Yes Diminished Hearing: Yes (BILATERAL- [place]) Diverticulitis: Yes Endocrine: Yes Gastrointestinal Disorders: Yes GERD: Yes Glaucoma: No Genitourinary: Yes Headaches: Yes Hepatitis: No Hiatal Hernia: No Hypertension: Yes Immune Disorder: No Implanted Vascular Access Dvce: Yes Kidney Stones: Yes Musculoskeletal: Yes Neurologic: Yes Reproductive: No Respiratory: Yes (ASTHMA) Integumentary: Yes (chronic rash) Immunizations Current: No Migraines: No Myocardial Infarction: Yes Radiation Therapy: No Renal Failure: No Seizures: No Sickle Cell Disease: No Sleep Apnea: No Thyroid Disease: No Ulcer: No PNEUMOCCOCAL Vaccine (Year): 2 Menopausal: Yes : 1 Para: 1 Past Surgical History Abdominal Surgery: Yes (SPLENECTOMY, COLON RESECTION) AICD: No Appendectomy: Yes Arteriovenous Shunt: No Body Medical Devices: STENT Cardiac Surgery: Yes (STENT PLACED [place] CORONARY ARTERY SEPTEMBER 2006) Cholecystectomy: Yes Coronary Stent: Yes (09/09, 12/16) Ear Surgery: No Endocrine Surgery: No Eye Surgery: No Genitourinary Surgery: No Gynecologic Surgery: Yes (hysterectomy) Hysterectomy: Yes Insulin Pump: No Joint Replacement: No Neurologic Surgery: No Oral Surgery: Yes (ALL TEETH REMOVED) Pacemaker: No Thoracic Surgery: Yes (2005--BREAST R LUMPECTOMY) Other Surgery: Yes (R PARTIAL MASTECTOMY) Social History Alcohol Use: No Tobacco Use: No Substance Use: No Allergies-Medications (Allergen,Severity, Reaction): Coded Allergies: Fish Containing Products (Unverified Allergy, Severe, SWELLING, 11/13/16) ciprofloxacin (Unverified Allergy, Severe, HIVES, 11/13/16) doxycycline (Unverified Allergy, Severe, 'BUMPS', 11/13/16) egg (Unverified Allergy, Severe, Hives, 11/13/16) haloperidol (Unverified Allergy, Severe, ITCHING AND SWELLING, 11/13/16) iodine (Unverified Allergy, Severe, THROAT SWELLS, 11/13/16) iohexol (Unverified Allergy, Severe, ITCHING AND SWELLING, 11/13/16) penicillin G (Unverified Allergy, Severe, THROAT SWELLS, 11/13/16) potassium iodide (Unverified Allergy, Severe, THROAT SWELLS, 11/13/16) povidone-iodine (Unverified Allergy, Severe, THROAT SWELLS, 11/13/16) sodium iodide (Unverified Allergy, Severe, THROAT SWELLS, 11/13/16) sodium iodide (Unverified Allergy, Severe, THROAT SWELLS, 11/13/16) nitrofurantoin (Unverified Allergy, Mild, Hives, 11/13/16) Reported Meds & Prescriptions Reported Meds & Active Scripts Active Brilinta (Ticagrelor) 90 Mg Tab 90 Mg PO BID Reported Omeprazole 20 Mg Tab 20 Mg PO DAILY Chlordiazepoxide HCl 25 Mg Capsule 25 Mg PO TID PRN Albuterol Neb (Albuterol Sulfate) 2.5 Mg/0.5 Ml Neb 2.5 Mg NEB Q6HR NEB PRN Note: The Albuterol Sulfate Inhalation Solution is concentrated and must be diluted. Read complete instructions carefully before using. Simvastatin 20 Mg Tab 20 Mg PO HS Metoprolol Tartrate 50 Mg Tab 50 Mg PO BID Metformin (Metformin HCl) 500 Mg Tab 500 Mg PO BIDPC With meals Captopril 25 Mg Tab 25 Mg PO BID Take 1 hr before meals. Norvasc (Amlodipine Besylate) 5 Mg Tab 5 Mg PO DAILY Ventolin Hfa 18 GM Inh (Albuterol Sulfate) 90 Mcg/Act Aer 2 Puff INH Q6H PRN Review of Systems Except as stated in HPI: all other systems reviewed are Neg Physical Exam Narrative GENERAL: Well-developed, well-nourished, overweight, appears anxious, no apparent distress. SKIN: Focused skin assessment warm/dry. HEAD: Atraumatic. Normocephalic. EYES: Pupils equal and round. No scleral icterus. No injection or drainage. ENT: Mucous membranes pink and moist. NECK: Trachea midline. No JVD. CARDIOVASCULAR: Regular rate and rhythm. Distal pulses brisk and equal bilaterally. RESPIRATORY: No accessory muscle use. Clear to auscultation. Breath sounds equal bilaterally. GASTROINTESTINAL: Abdomen soft, non-tender, nondistended. MUSCULOSKELETAL: No obvious deformities. No clubbing. No cyanosis. No edema. NEUROLOGICAL: Awake and alert. No obvious cranial nerve deficits. Motor grossly within normal limits. Normal speech. PSYCHIATRIC: Appropriate mood and affect; insight and judgment normal. Data Data Last Documented VS Vital Signs Date Time Temp Pulse Resp B/P (MAP) Pulse Ox O2 Delivery O2 Flow Rate FiO2 01/02/17 20:15 99 18 191/66 (107) 99 Room Air 01/02/17 19:30 97.7 Orders Orders Basic Metabolic Panel (Bmp) (01/02/17 19:43) Ckmb (Isoenzyme) Profile (01/02/17 19:43) Complete Blood Count With Diff (01/02/17 19:43) Magnesium (Mg) (01/02/17 19:43) Prothrombin Time / Inr (Pt) (01/02/17 19:43) Act Partial Throm Time (Ptt) (01/02/17 19:43) Troponin I (01/02/17 19:43) Chest, Single Ap (01/02/17 19:43) Ecg Monitoring (01/02/17 19:43) Bilateral Bp Monitoring (01/02/17 19:43) Iv Access Insert/Monitor (01/02/17 19:43) Oximetry (01/02/17 19:43) Oxygen Administration (01/02/17 19:43) Aspirin Chew (Aspirin Chew) (01/02/17 19:45) Nitroglycerin 2% Oint (Nitroglycerin 2% (01/02/17 19:45) Sodium Chloride 0.9% Flush (Ns Flush) (01/02/17 19:45) Labetalol Inj (Trandate Inj) (01/02/17 19:45) Labs Laboratory Tests Test 01/02/17 19:45 White Blood Count 15.4 TH/MM3 Red Blood Count 4.80 MIL/MM3 Hemoglobin 12.5 GM/DL Hematocrit 38.7 % Mean Corpuscular Volume 80.5 FL Mean Corpuscular Hemoglobin 26.0 PG Mean Corpuscular Hemoglobin Concent 32.3 % Red Cell Distribution Width 15.1 % Platelet Count 590 TH/MM3 Mean Platelet Volume 7.8 FL Neutrophils (%) (Auto) 57.3 % Lymphocytes (%) (Auto) 31.2 % Monocytes (%) (Auto) 7.7 % Eosinophils (%) (Auto) 1.8 % Basophils (%) (Auto) 2.0 % Neutrophils # (Auto) 8.8 TH/MM3 Lymphocytes # (Auto) 4.8 TH/MM3 Monocytes # (Auto) 1.2 TH/MM3 Eosinophils # (Auto) 0.3 TH/MM3 Basophils # (Auto) 0.3 TH/MM3 CBC Comment DIFF FINAL Differential Comment Prothrombin Time 10.0 SEC Prothromb Time International Ratio 0.9 RATIO Activated Partial Thromboplast Time 30.3 SEC Blood Urea Nitrogen 14 MG/DL Creatinine 0.74 MG/DL Random Glucose 275 MG/DL Calcium Level 8.9 MG/DL Magnesium Level 2.0 MG/DL Sodium Level 136 MEQ/L Potassium Level 3.5 MEQ/L Chloride Level 99 MEQ/L Carbon Dioxide Level 26.1 MEQ/L Anion Gap 11 MEQ/L Estimat Glomerular Filtration Rate 79 ML/MIN Total Creatine Kinase 45 U/L Troponin I LESS THAN 0.02 NG/ML MDM Medical Decision Making Medical Screen Exam Complete: Yes Emergency Medical Condition: Yes Medical Record Reviewed: Yes Interpretation(s) EKG: Atrial flutter, rate 1:15, LVH, no acute ischemic abnormality. Differential Diagnosis ACS, a flutter with RVR, pneumothorax, PE, pneumonia, Narrative Course Initial vital signs show heart rate 116, blood pressure 178/85, pulse ox 98% on room air, oral temp of 97.7F. CBC: WBC 15.4, hemoglobin 12.5, hematocrit 38.7, platelets 590. CMP is remarkable for random glucose 275, otherwise unremarkable. Cardiac enzymes are negative. Chest x-ray: No acute disease. I was about to give the patient labetalol to help with her a flutter with RVR, however the patient's heart rate improved to 90 without any intervention. Nitropaste was placed, and the patient was given a full aspirin, and on reassessment her chest pain has resolved. Repeat EKG was performed and shows sinus tachycardia with a rate of 101, left axis deviation, LVH, mild ST depression in lateral leads which could be secondary to LVH. Given the patient's several cardiac risk factors, she will be admitted to the chest pain center for further cardiac evaluation. She is amenable to this plan. Case discussed with hospitalist Dr. More who will admit the patient to his service. Diagnosis Primary Impression: Chest pain Qualified Codes: R07.9 - Chest pain, unspecified Admitting Information Admitting Physician Requests: Ishmael Darby MD Jan 02, 2017 19:47
[2017-01-02 19:59] LABS: AUTOMATED NEUTROPHIL # 8.8 TH/MM3 (1.8-7.7); BASOPHIL # 0.3 TH/MM3 (0-0.2); EOSINOPHIL # 0.3 TH/MM3 (0-0.4); EOSINOPHIL % 1.8 % (0.0-4.0); HEMATOCRIT 38.7 % (35.0-46.0); HEMOGLOBIN 12.5 GM/DL (11.6-15.3); LYMPH % 31.2 % (9.0-44.0); LYMPHOCYTE # 4.8 TH/MM3 (1.0-4.8); MEAN CELL VOLUME 80.5 FL (80.0-100.0); MEAN CORPUSCULAR HGB CONC 32.3 % (32.0-36.0); MEAN PLATELET VOLUME 7.8 FL (7.0-11.0); MONO % 7.7 % (0.0-8.0); MONOCYTE # 1.2 TH/MM3 (0-0.9); NEUT % 57.3 % (16.0-70.0); PLATELET COUNT 590 TH/MM3 (150-450); RED CELL DISTRIBUTION WIDTH 15.1 % (11.6-17.2); WHITE BLOOD COUNT 15.4 TH/MM3 (4.0-11.0)
[2017-01-02 20:06] LABS: CHLORIDE 99 MEQ/L (98-107); SODIUM (NA) 136 MEQ/L (136-145)
[2017-01-02 20:09] LABS: BICARBONATE 26.1 MEQ/L (21.0-32.0); CALCIUM 8.9 MG/DL (8.5-10.1); GLUCOSE,RANDOM 275 MG/DL (74-106)
[2017-01-02 20:10] LABS: BLOOD UREA NITROGEN 14 MG/DL (7-18)
--- NOTE | 2017-01-02 20:11 | RADRPT ---
EXAM DATE/TIME: 01/02/2017 20:01 [facility] COMPARISON: CHEST SINGLE AP, August 06, 2016, 22:22. INDICATIONS : Chest pain. MEDICAL HISTORY : Diabetes mellitus type II. Cardiovascular disease. SURGICAL HISTORY : Coronary artery stent. ENCOUNTER: Initial ACUITY: Several days PAIN SCORE: 3/10 LOCATION: Bilateral chest FINDINGS: A single view of the chest demonstrates the lungs to be symmetrically aerated without evidence of mas s, infiltrate or effusion. The heart size remains mildly prominent with no perihilar edema. At the s plenic changes are again noted in the aorta. There are multiple overlying electrocardiogram leads. un remarkable. Osseous structures are intact. CONCLUSION: No acute disease. Rolando Collins MD on January 02, 2017 at 20:09 Board Certified Radiologist. This report was verified electronically.
[2017-01-02 20:12] LABS: INTERNATIONAL NORMALIZED RATIO 0.9 RATIO
[2017-01-02 20:13] LABS: CREATININE 0.74 MG/DL (0.50-1.00); GLOMERULAR FILTRATION RATE 79 ML/MIN (>89)
[2017-01-02 20:15] VITALS: BP 191/66; PULSE 99; RESP 18; O2SAT 99
[2017-01-02 20:18] LABS: TROPONIN I LESS THAN 0.02 NG/ML (0.02-0.05)
[2017-01-02 20:45] VITALS: BP 187/66; PULSE 96; RESP 16; O2SAT 98
[2017-01-02] MEDS ORDERED: ALBUTEROL SULFATE 90 MCG/ACT HFA 8 GM INHALER INH PRN (21:15)
[2017-01-02] MEDS ORDERED: LACTULOSE SYRUP 20 GM/30 ML CUP PO PRN (21:30)
[2017-01-02] MEDS ORDERED: MAGNESIUM HYDROXIDE SUSP 30 ML CUP PO PRN (21:30)
[2017-01-02] MEDS ORDERED: BISACODYL 10 MG SUPP RECTAL PRN (21:30)
[2017-01-02] MEDS ORDERED: SODIUM CHLORIDE 0.9% FLUSH 10 ML FLUSH IV FLUSH PRN (21:30)
[2017-01-02] MEDS ORDERED: ONDANSETRON HCL 4 MG/2 ML VIAL IVP PRN (21:30)
[2017-01-02] MEDS ORDERED: NALOXONE HCL 0.4 MG/ML AMP IV PUSH PRN (21:30)
[2017-01-02] MEDS ORDERED: SENNOSIDES 8.6 MG TAB PO PRN (21:30)
[2017-01-02 21:34] VITALS: BP 190/91; PULSE 93; RESP 16; O2SAT 99
[2017-01-02] MEDS ORDERED: DEXTROSE 50% IN WATER 50 ML VIAL(D50) IV PUSH PRN (21:45)
[2017-01-02] MEDS ORDERED: GLUCAGON 1 MG/ML VIAL OTHER PRN (21:45)
[2017-01-02 21:52] VITALS: BP 184/78; PULSE 92; RESP 16; O2SAT 98
[2017-01-02] MEDS: SODIUM CHLOR 0.45% 1000 ML INJ 1,000 ML IV SCH ×2 (22:35→23:45)
[2017-01-02] MEDS: chlordiazePOXIDE 25 MG CAP PO PRN (23:56)
[2017-01-03] VITALS: BP 180/89; PULSE 97; RESP 20; TEMP 97.6; O2SAT 95
[2017-01-03 04:00] VITALS: BP 177/79; PULSE 93; RESP 20; TEMP 97.9; O2SAT 95
[2017-01-03 08:00] VITALS: BP 178/79; PULSE 87; RESP 18; TEMP 97.9; O2SAT 98
[2017-01-03] MEDS: INSULIN ASPART SUPPLEMENTAL SCALE SQ SCH ×3 (08:27→17:10)
[2017-01-03 08:58] LABS: AUTOMATED NEUTROPHIL # 7.7 TH/MM3 (1.8-7.7); BASOPHIL # 0.1 TH/MM3 (0-0.2); BASOPHIL % 0.5 % (0.0-2.0); EOSINOPHIL # 0.1 TH/MM3 (0-0.4); EOSINOPHIL % 0.7 % (0.0-4.0); HEMATOCRIT 41.1 % (35.0-46.0); HEMOGLOBIN 13.3 GM/DL (11.6-15.3); LYMPH % 28.2 % (9.0-44.0); LYMPHOCYTE # 3.4 TH/MM3 (1.0-4.8); MEAN CELL VOLUME 81.5 FL (80.0-100.0); MEAN CORPUSCULAR HEMOGLOBIN 26.4 PG (27.0-34.0); MEAN CORPUSCULAR HGB CONC 32.4 % (32.0-36.0); MEAN PLATELET VOLUME 7.7 FL (7.0-11.0); MONOCYTE # 0.7 TH/MM3 (0-0.9); NEUT % 64.6 % (16.0-70.0); PLATELET COUNT 524 TH/MM3 (150-450); RED BLOOD COUNT 5.05 MIL/MM3 (4.00-5.30); RED CELL DISTRIBUTION WIDTH 15.4 % (11.6-17.2)
[2017-01-03] MEDS ORDERED: METOPROLOL TARTRATE 50 MG TAB PO SCH (09:00)
[2017-01-03] MEDS ORDERED: PANTOPRAZOLE SOD 20 MG DELAYED RELEASE TAB PO SCH (09:00)
[2017-01-03] MEDS ORDERED: CAPTOPRIL 25 MG TAB PO SCH (09:00)
[2017-01-03] MEDS ORDERED: SODIUM CHLORIDE 0.9% FLUSH 10 ML FLUSH IV FLUSH SCH (09:00)
[2017-01-03] MEDS ORDERED: TICAGRELOR 90 MG TAB PO SCH (09:00)
[2017-01-03] MEDS ORDERED: amLODIPine BESYLATE 5 MG TAB PO SCH (09:00)
[2017-01-03 09:06] LABS: CHLORIDE 101 MEQ/L (98-107); SODIUM (NA) 138 MEQ/L (136-145)
[2017-01-03 09:10] LABS: ALBUMIN 3.3 GM/DL (3.4-5.0); BICARBONATE 27.6 MEQ/L (21.0-32.0); BLOOD UREA NITROGEN 12 MG/DL (7-18); GLUCOSE,RANDOM 217 MG/DL (74-106)
[2017-01-03 09:13] LABS: ALT (GPT) 27 U/L (10-53); AST (GOT) 23 U/L (15-37); CREATININE 0.54 MG/DL (0.50-1.00); GLOMERULAR FILTRATION RATE 113 ML/MIN (>89)
[2017-01-03 09:15] LABS: TOTAL BILIRUBIN ADULT 0.4 MG/DL (0.2-1.0); TOTAL PROTEIN 8.6 GM/DL (6.4-8.2)
[2017-01-03 09:16] LABS: ALKALINE PHOSPHATASE 175 U/L (45-117)
--- NOTE | 2017-01-03 09:31 | HHI.HP ---
[facility] Service [facility] Primary Care Physician Gopal Reynolds D.O. Admission Diagnosis Chest Pain Diagnoses: (1) Chest pain Chief Complaint: Chest pain and palpitations Travel History International Travel<30 Days: No Contact w/Intl Traveler <30 Da: No Traveled to Known Affected Are: No History of Present Illness Mrs. Rodriguez is a 66-year-old female with a known medical history of hypertension , hyperlipidemia, DM, atrial flutter, CAD with stent placement on Brilinta who presented to the ED with complaints of chest pain and palpitations. Patient states she was getting ready to go trick or treating with her family and while getting ready noticed her heart start to race and feelings of chest discomfort. She states that the pain occurred at rest, in her midsternal chest, characterized as a pressure pain, denies any radiation to neck or jaw, rates the pain a 5/10 at its worse. States she took a Tylenol which eased the pain. Denies any aggravating factors. Denies any associated nausea, vomiting, diaphoresis or shortness of breath. Patient is able to reproduce the pain with palpation. She states that this pain has occurred many times in the past and just seems to go away. Patient sees Dr. Engel as her community service representative. Last treadmill stress test was 1.5 years ago which was reportedly unremarkable. Denies any recent changes to medications. Denies any recent illness including fever, chills, cough, shortness of breath, headache, dizziness, ab pain, n/v/d or dysuria. Review of Systems Constitutional: DENIES: Fever, Chills Eyes: DENIES: Blurred vision, Eye pain Ears, nose, mouth, throat: DENIES: Hearing loss Respiratory: DENIES: Cough, Shortness of breath Cardiovascular: COMPLAINS OF: Chest pain, Palpitations Gastrointestinal: DENIES: Abdominal pain, Bloody stools, Constipation, Diarrhea , Nausea, Vomiting Musculoskeletal: DENIES: Joint pain Psychiatric: COMPLAINS OF: Anxiety Except as stated in HPI: all other systems reviewed are Neg Past Family Social History Past Medical History Arthritis Anemia Bipolar Anxiety Depression CAD with cardiac stents Atrial flutter Hypertension DM Bilateral [place] Asthma Past Surgical History Splenectomy Colon resection Appendectomy Cardiac stent placement x 3 Cholecystectomy Hysterectomy All teeth removed Right breast lumpectomy Reported Medications Reported Meds & Active Scripts Active Brilinta (Ticagrelor) 90 Mg Tab 90 Mg PO BID Reported Omeprazole 20 Mg Tab 20 Mg PO DAILY Chlordiazepoxide HCl 25 Mg Capsule 25 Mg PO TID PRN Albuterol Neb (Albuterol Sulfate) 2.5 Mg/0.5 Ml Neb 2.5 Mg NEB Q6HR NEB PRN Note: The Albuterol Sulfate Inhalation Solution is concentrated and must be diluted. Read complete instructions carefully before using. Simvastatin 20 Mg Tab 20 Mg PO HS Metoprolol Tartrate 50 Mg Tab 50 Mg PO BID Metformin (Metformin HCl) 500 Mg Tab 500 Mg PO BIDPC With meals Captopril 25 Mg Tab 25 Mg PO BID Take 1 hr before meals. Norvasc (Amlodipine Besylate) 5 Mg Tab 5 Mg PO DAILY Ventolin Hfa 18 GM Inh (Albuterol Sulfate) 90 Mcg/Act Aer 2 Puff INH Q6H PRN Allergies: Coded Allergies: Fish Containing Products (Unverified Allergy, Severe, SWELLING, 11/13/16) ciprofloxacin (Unverified Allergy, Severe, HIVES, 11/13/16) doxycycline (Unverified Allergy, Severe, 'BUMPS', 11/13/16) egg (Unverified Allergy, Severe, Hives, 11/13/16) haloperidol (Unverified Allergy, Severe, ITCHING AND SWELLING, 11/13/16) iodine (Unverified Allergy, Severe, THROAT SWELLS, 11/13/16) iohexol (Unverified Allergy, Severe, ITCHING AND SWELLING, 11/13/16) penicillin G (Unverified Allergy, Severe, THROAT SWELLS, 11/13/16) potassium iodide (Unverified Allergy, Severe, THROAT SWELLS, 11/13/16) povidone-iodine (Unverified Allergy, Severe, THROAT SWELLS, 11/13/16) sodium iodide (Unverified Allergy, Severe, THROAT SWELLS, 11/13/16) sodium iodide (Unverified Allergy, Severe, THROAT SWELLS, 11/13/16) nitrofurantoin (Unverified Allergy, Mild, Hives, 11/13/16) Active Ordered Medications Current Medications Medications (Trade) Dose Ordered Sig/Janie Route Start Time Stop Time Status Last Admin (Proair Hfa Inh) 2 puff Q6H PRN INH 01/02/17 21:15 (Norvasc) 5 mg DAILY PO 01/03/17 09:00 01/03/17 08:28 (Capoten) 25 mg BID PO 01/03/17 09:00 01/03/17 08:26 (Librium) 25 mg TID PRN PO 01/02/17 21:15 01/03/17 10:29 (Lopressor) 50 mg BID PO 01/03/17 09:00 01/03/17 10:29 (Brilinta) 90 mg BID PO 01/03/17 09:00 01/03/17 08:27 (Protonix) 20 mg DAILY PO 01/03/17 09:00 01/03/17 08:28 (Pravachol) 40 mg HS PO 01/03/17 21:00 Sodium Chloride 1,000 ml @ 75 mls/hr [id number] IV 01/02/17 21:16 01/02/17 23:45 (NS Flush) 2 ml UNSCH PRN IV FLUSH 01/02/17 21:30 (NS Flush) 2 ml BID IV FLUSH 01/03/17 09:00 01/03/17 08:28 (Zofran Inj) 4 mg Q6H PRN IVP 01/02/17 21:30 (Narcan Inj) 0.4 mg UNSCH PRN IV PUSH 01/02/17 21:30 (Milk Of Magnesia Liq) 30 ml Q12H PRN PO 01/02/17 21:30 (Senokot) 17.2 mg Q12H PRN PO 01/02/17 21:30 (Dulcolax Supp) 10 mg DAILY PRN RECTAL 01/02/17 21:30 (Lactulose Liq) 30 ml DAILY PRN PO 01/02/17 21:30 (NovoLOG SUPPLEMENTAL SCALE) 1 ACHS SLIDING SCALE SQ 01/03/17 08:00 01/03/17 08:27 (D50w (Vial) Inj) 50 ml UNSCH PRN IV PUSH 01/02/17 21:45 (Glucagon Inj) 1 mg UNSCH PRN OTHER 01/02/17 21:45 Family History Maternal medial history significant for uterine cancer. Paternal medical history significant for hypertension. Social History Denies any current tobacco use, alcohol use or illicit drug use. Physical Exam Vital Signs Vital Signs Date Time Temp Pulse Resp B/P (MAP) Pulse Ox O2 Delivery O2 Flow Rate FiO2 01/03/17 08:00 97.9 87 18 178/79 (112) 98 01/03/17 04:00 97.9 93 20 177/79 (111) 95 01/03/17 00:00 97.6 97 20 180/89 (119) 95 01/02/17 21:52 92 16 184/78 (113) 98 Room Air 01/02/17 21:34 93 16 190/91 (124) 99 Room Air 01/02/17 20:45 96 16 187/66 (106) 98 Room Air 01/02/17 20:15 99 18 191/66 (107) 99 Room Air 01/02/17 19:40 18 98 Room Air 01/02/17 19:40 103 18 186/86 (119) 99 Room Air 192/88 (122) 01/02/17 19:30 97.7 116 20 178/85 (116) Physical Exam GENERAL: This is a well-nourished, well-developed female patient, lying in bed with apparent anxiety. SKIN: No rashes, ecchymoses or lesions. Warm and dry. HEENT: Atraumatic. Normocephalic. Pupils equal round and reactive. Extraocular motions intact. No scleral icterus. No injection or drainage. Nose without bleeding. Throat without erythema, tonsillar hypertrophy or exudate. Airway patent. NECK: Trachea midline. No JVD or lymphadenopathy. Supple CARDIOVASCULAR: Regular rate and rhythm. 2/6 systolic murmur noted. Left carotid bruit. Reproducible chest discomfort to palpation. RESPIRATORY: Clear to auscultation. Breath sounds equal bilaterally. No wheezes , rales, or rhonchi. GASTROINTESTINAL: Abdomen soft, non-tender, nondistended. No guarding. MUSCULOSKELETAL: Extremities without clubbing, cyanosis, or edema. No joint tenderness, effusion, or edema noted. NEUROLOGICAL: Awake and alert. Cranial nerves II through XII intact. Motor and sensory grossly within normal limits. Five out of 5 muscle strength in all muscle groups. Normal speech. Laboratory Laboratory Tests Test 01/02/17 19:45 01/02/17 22:55 01/03/17 01:20 01/03/17 08:50 White Blood Count 15.4 12.0 Red Blood Count 4.80 5.05 Hemoglobin 12.5 13.3 Hematocrit 38.7 41.1 Mean Corpuscular Volume 80.5 81.5 Mean Corpuscular Hemoglobin 26.0 26.4 Mean Corpuscular Hemoglobin Concent 32.3 32.4 Red Cell Distribution Width 15.1 15.4 Platelet Count 590 524 Mean Platelet Volume 7.8 7.7 Neutrophils (%) (Auto) 57.3 64.6 Lymphocytes (%) (Auto) 31.2 28.2 Monocytes (%) (Auto) 7.7 6.0 Eosinophils (%) (Auto) 1.8 0.7 Basophils (%) (Auto) 2.0 0.5 Neutrophils # (Auto) 8.8 7.7 Lymphocytes # (Auto) 4.8 3.4 Monocytes # (Auto) 1.2 0.7 Eosinophils # (Auto) 0.3 0.1 Basophils # (Auto) 0.3 0.1 CBC Comment DIFF FINAL DIFF FINAL Differential Comment Prothrombin Time 10.0 Prothromb Time International Ratio 0.9 Activated Partial Thromboplast Time 30.3 Blood Urea Nitrogen 14 12 Creatinine 0.74 0.54 Random Glucose 275 217 Calcium Level 8.9 9.0 Magnesium Level 2.0 Sodium Level 136 138 Potassium Level 3.5 3.7 Chloride Level 99 101 Carbon Dioxide Level 26.1 27.6 Anion Gap 11 9 Estimat Glomerular Filtration Rate 79 113 Total Creatine Kinase 45 Troponin I LESS THAN 0.02 0.04 0.05 Total Protein 8.6 Albumin 3.3 Alkaline Phosphatase 175 Aspartate Amino Transf (AST/SGOT) 23 Alanine Aminotransferase (ALT/SGPT) 27 Total Bilirubin 0.4 Result Diagram: 01/03/17 0850 01/03/1750 Imaging Last Impressions Chest X-Ray 01/02/171942 Signed Impressions: Service Date/Time: Monday, January 02, 2017 20:01 - CONCLUSION: No acute disease. MD Margarito Angeles VTE Risk Assessment Margarito VTE Risk Assessment: Mod/High Risk (score >= 2) Caprini Risk Assessment Model Point Value = 1 Point Value = 2 Point Value = 3 Point Value = 5 Age 41-60 Minor surgery BMI > 25 kg/m2 Swollen legs Varicose veins or History of unexplained or recurrent spontaneous Oral contraceptives or hormone replacement Sepsis (< 1 month) Serious lung disease, including pneumonia (< 1 month) Abnormal pulmonary function Acute myocardial infarction Congestive heart failure (< 1 month) History of inflammatory bowel disease Medical patient at bed rest Age 61-74 Arthroscopic surgery Major open surgery (> 45 min) Laparoscopic surgery (> 45 min) Malignancy Confined to bed (> 72 hours) Immobilizing plaster cast Central venous access Age >= 75 History of VTE Family history of VTE Factor V Leiden Prothrombin [id number] Lupus anticoagulant Anticardiolipin antibodies Elevated serum homocysteine Heparin-induced thrombocytopenia Other congenital or acquired thrombophilia Stroke (< 1 month) Elective arthroplasty Hip, pelvis, or leg fracture Acute spinal cord injury (< 1 month) Prophylaxis Regimen Total Risk Factor Score Risk Level Prophylaxis Regimen 0-1 Low Early ambulation 2 Moderate Order ONE of the following: *Sequential Compression Device (SCD) *Heparin 5000 units SQ BID 3-4 Higher Order ONE of the following medications: *Heparin 5000 units SQ TID *Enoxaparin/Lovenox 40 mg SQ daily (WT < 150 kg, CrCl > 30 mL/min) *Enoxaparin/Lovenox 30 mg SQ daily (WT < 150 kg, CrCl > 10-29 mL/min) *Enoxaparin/Lovenox 30 mg SQ BID (WT < 150 kg, CrCl > 30 mL/min) AND/OR *Sequential Compression Device (SCD) 5 or more Highest Order ONE of the following medications: *Heparin 5000 units SQ TID (Preferred with Epidurals) *Enoxaparin/Lovenox 40 mg SQ daily (WT < 150 kg, CrCl > 30 mL/min) *Enoxaparin/Lovenox 30 mg SQ daily (WT < 150 kg, CrCl > 10-29 mL/min) *Enoxaparin/Lovenox 30 mg SQ BID (WT < 150 kg, CrCl > 30 mL/min) AND *Sequential Compression Device (SCD) Assessment and Plan Assessment and Plan Mrs. Rodriguez is a 66-year-old female with a known medical history of hypertension , hyperlipidemia, DM, atrial flutter, CAD with stent placement on Brilinta who presented to the ED with complaints of chest pain and palpitations. Patient states she was getting ready to go trick or treating with her family and while getting ready noticed her heart start to race and feelings of chest discomfort. Chest pain suspect musculoskeletal in nature - Patient admitted to chest pain center. Serial EKGs and troponins ordered to rule out any ischemia. Troponins flat. EKG reviewed showing sinus tachycardia with LVH. Call placed to patient's community service representative Dr. Engel who was updated about patient status who recommends a nuclear stress test, therefore a nuclear stress test is ordered for today. Further treatment plan will depend on the results of nuclear imaging. Continue to follow. Patient expressing increased anxiety regarding nuclear scan, continued home Librium for which the patient takes at home for anxiety. Also added Valium before performance of test. Supportive care. CXR reviewed showing no acute disease. Hypertension: Continue home Amlodipine, Captopril and Metoprolol. Monitor HR and BP trends. CAD with history of stent placement: Continue home Brilinta. Hyperlipidemia: Continue home Pravastatin. Type 2 diabetes mellitus: ACCU checks ACHS, sliding scale insulin, cover as needed. Continue to monitor BGM trend closely since being NPO. GERD/GI Prophylaxis: Continue home Protonix. Patient stable at this time and agreeable to the plan. * Nuclear stress test results reviewed and called to Dr. Engel. He is comfortable with managing patient's disease medically and recommends a follow up appointment with him upon discharge. Patient is agreeable to the plan and understanding. Son is at bedside and updated. Time allowed for questions and all were answered to the best of my ability. Problem Qualifiers (1) Chest pain: Qualified Codes: R07.9 - Chest pain, unspecified Leeann Dailey Jan 03, 2017 09:31
[2017-01-03] MEDS: chlordiazePOXIDE 25 MG CAP PO PRN (10:29)
[2017-01-03] MEDS ORDERED: DIAZEPAM 10 MG TAB PO ONE (11:15)
--- NOTE | 2017-01-03 11:41 | EKG ---
Date Performed: 01/03/2017 Time Performed: 01:36:19 PTAGE: 66 years EKG: Sinus rhythm BORDERLINE LEFT AXIS DEVIATION LEFT VENTRICULAR HYPERTROPHY AND ST-T CHANGE ABNORMAL ECG PREVIOUS TRACING : 01/02/2017 23.02 Since previous tracing, no significant change noted DOCTOR: Doni Michael Interpretating Date/Time 01/03/2017 11:39:25
--- NOTE | 2017-01-03 11:41 | EKG ---
Date Performed: 01/02/2017 Time Performed: 23:02:15 PTAGE: 66 years EKG: Sinus rhythm BORDERLINE LEFT AXIS DEVIATION VOLTAGE CRITERIA FOR LVH MINIMAL ST DEPRESSION ABNORMAL ECG PREVIOUS TRACING : 01/02/2017 21.09 Since previous tracing, no significant change noted DOCTOR: Doni Michael Interpretating Date/Time 01/03/2017 11:40:26
--- NOTE | 2017-01-03 11:42 | EKG ---
Date Performed: 01/02/2017 Time Performed: 21:09:14 PTAGE: 66 years EKG: SINUS TACHYCARDIA BORDERLINE LEFT AXIS DEVIATION VOLTAGE CRITERIA FOR LVH MODERATE ST DEPRE SSION ABNORMAL ECG PREVIOUS TRACING : 01/02/2017 19.23 Since previous tracing, no significant change noted DOCTOR: Doni Michael Interpretating Date/Time 01/03/2017 11:41:22
--- NOTE | 2017-01-03 11:43 | EKG ---
Date Performed: 01/02/2017 Time Performed: 19:23:12 PTAGE: 66 years EKG: SINUS TACHYCARDIA LEFT VENTRICULAR HYPERTROPHY AND ST-T CHANGE ABNORMAL ECG INTERPRETATION BASED ON A DEFAULT AGE OF 40 YEARS PREVIOUS TRACING : 10/24/2016 00.53 Since previous tracing, no significant change noted DOCTOR: Doni Michael Interpretating Date/Time 01/03/2017 11:42:06
[2017-01-03 12:00] VITALS: BP 148/80; PULSE 79; RESP 17; TEMP 97.9; O2SAT 97
[2017-01-03] MEDS ORDERED: REGADENOSON INJ 0.4 MG/5 ML SYR IV ONE (15:26)
--- NOTE | 2017-01-03 15:59 | RADRPT ---
EXAM DATE/TIME: 01/03/2017 14:33 [facility] COMPARISON: No previous studies available for comparison. INDICATIONS : Midsternal chest pain. Angina. Abnormal EKG. DOSE: 25.4 mCi Tc99m Myoview at stress. 8.5 mCi Tc99m Myoview at rest. 0.4 mg Lexiscan STRESS SYMPTOMS: Chest pain and nausea. EJECTION FRACTION: 62% MEDICAL HISTORY : Hypertension. Diabetes mellitus type 2. Coronary artery disease and asthma. SURGICAL HISTORY : Colon resection. Cholecystectomy. Coronary artery stent. Hysterectomy, splenectomy and right mastecto my. ENCOUNTER: Initial ACUITY: 1 day PAIN SCALE: 5/10 LOCATION: Midsternal chest TECHNIQUE: The patient underwent pharmacologic stress with infusion of prescribed dose. Continuous ECG tracing was monitored during stress. Gated SPECT imaging was performed after stress and conventional SPECT i maging was performed at rest. The examination was performed on a SPECT/CT scanner, both attenuation and non-corrected datasets were reviewed. FINDINGS: DISTRIBUTION: The maximum perfused segment at stress is in the inferior wall. PERFUSION STUDY: There is a moderate-sized mild severity reversible defect involving the apical segment of the anterio r wall. The apex is spared. GATED STUDY: There is hypokinesis involving the apical segment of the anterior wall. CONCLUSION: 1. Moderate-sized mild severity reversible defect involving the apical segment of the anterior wall. Ischemia is not excluded RISK CATEGORY: Intermediate (1-3% Annual Mortality Rate) Doni Patton MD on January 03, 2017 at 15:55 Board Certified Radiologist. This report was verified electronically.
[2017-01-03 16:00] VITALS: BP 151/79; PULSE 85; RESP 17; TEMP 98; O2SAT 97
--- NOTE | 2017-01-03 16:39 | HHI.DCPOC ---
Discharge Care Plan Diagnosis: (1) CAD (coronary artery disease) (2) Hypertension (3) Atypical chest pain (4) Anxiety Your Health Problems Are: Anxiety Chest Pain Goals to Promote Your Health * To prevent worsening of your condition and complications * To maintain your health at the optimal level Directions to Meet Your Goals Take your medications as prescribed Follow your dietary instruction Follow activity as directed Keep your appointments as scheduled Take your immunizations and boosters as scheduled If your symptoms worsen call your PCP, if no PCP go to Urgent Care Center or Emergency Room Smoking is Dangerous to Your Health. Avoid second hand smoke Call the 24-hour hour crisis hotline for domestic abuse at Leeann Dailey Jan 03, 2017 16:38
--- NOTE | 2017-01-03 16:39 | HHI.DCPOC ---
Discharge Care Plan Diagnosis: (1) CAD (coronary artery disease) (2) Hypertension (3) Atypical chest pain (4) Anxiety Your Health Problems Are: Anxiety Chest Pain Goals to Promote Your Health * To prevent worsening of your condition and complications * To maintain your health at the optimal level Directions to Meet Your Goals Take your medications as prescribed Follow your dietary instruction Follow activity as directed Keep your appointments as scheduled Take your immunizations and boosters as scheduled If your symptoms worsen call your PCP, if no PCP go to Urgent Care Center or Emergency Room Smoking is Dangerous to Your Health. Avoid second hand smoke Call the 24-hour hour crisis hotline for domestic abuse at Leeann Dailey Jan 03, 2017 16:38
--- NOTE | 2017-01-03 16:39 | HHI.DCPOC ---
Discharge Care Plan Diagnosis: (1) CAD (coronary artery disease) (2) Hypertension (3) Atypical chest pain (4) Anxiety Your Health Problems Are: Anxiety Chest Pain Goals to Promote Your Health * To prevent worsening of your condition and complications * To maintain your health at the optimal level Directions to Meet Your Goals Take your medications as prescribed Follow your dietary instruction Follow activity as directed Keep your appointments as scheduled Take your immunizations and boosters as scheduled If your symptoms worsen call your PCP, if no PCP go to Urgent Care Center or Emergency Room Smoking is Dangerous to Your Health. Avoid second hand smoke Call the 24-hour hour crisis hotline for domestic abuse at Leeann Dailey Jan 03, 2017 16:38
[2017-01-03] MEDS ORDERED: PRAV40TA PO (16:40)
[2017-01-03] MEDS ORDERED: KETO10 PO (16:42)
[2017-01-03] MEDS ORDERED: PRAVASTATIN SOD 40 MG TAB PO SCH (21:00)
--- NOTE | 2017-01-08 09:03 | TR ---
Date Performed: 01/03/2017 Time Performed: 15:04:27 DOCTOR: Doni Michael DRUG LIST: CLINICAL HISTORY: CHEST PAIN WITH ABNORMAL EKG REASON FOR TEST: REASON FOR ENDING: OBSERVATION: CONCLUSION: Lexiscan stress test was performed under standard four minute protocol. Radionuclid e was injected one minute prior to ending the test. No electrocardiographic abormalities were present to suggest ischemia. Nuclear imaging and interpretation are pending. COMMENTS:
== END 2017-01-03 18:17 | disposition home or self-care (01) ==
LOC: PHED 19:15 → PHEDA 21:13 → PH3B 23:19
PROVIDERS: ADMIT Hospitalist; ATTEND Hospitalist
DX: I25.10 Atherosclerotic heart disease of native coronary artery without angina pectoris (principal); I10 Essential (primary) hypertension; F41.9 Anxiety disorder, unspecified; R07.89 Other chest pain; E11.9 Type 2 diabetes mellitus without complications; I48.92 Unspecified atrial flutter; R00.0 Tachycardia, unspecified; R94.31 Abnormal electrocardiogram [ECG] [EKG]; Z79.01 Long term (current) use of anticoagulants; Z95.5 Presence of coronary angioplasty implant and graft; Z86.73 Personal history of transient ischemic attack (TIA), and cerebral infarction without residual deficits
CPT/HCPCS: 71010; 78452; 80048; 80053; 82550; 82948; 83735; 84484; 85025; 85610; 85730; 93005; 93017; 96360; 96361; 96372; 99285; A9502; G0378; J1815; J2785

== ENCOUNTER 2017-09-16 02:42 | Observation (INO) ==
--- NOTE | 2017-09-16 03:06 | ED ---
HPI General Chief Complaint: Chest Pain Stated Complaint: Chest tightness x 2 days,worse today Time Seen by Provider: 09/16/17 03:00 History of Present Illness HPI narrative: 66-year-old female presents to the emergency department by private transportation in the care of family for complaint of 3 days of chest tightness radiating into her neck with ear pain patient is concerned that she has a respiratory illness has had cough nonproductive complaints of wheezing. Patient is diabetic. Patient has extensive past medical history that includes cardiac disease. Patient states she has been taking her medication as prescribed. Patient denies having fever. Cough is not productive of yellow- green sputum or hemoptysis. Patient denies any epistaxis. Patient had some mild sore throat. Patient states multiple people in her environment are similarly ill. Patient is very concerned about a virus going around. 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 Patient does not report orthopnea PND or dyspnea on exertion no new lower extremity pain or swelling. Patient also is concerned about her right kidney and extends concerned that she has a UTI and is concerned that may her blood sugar is too high. Patient states she has been trying to adjust her medication to accommodate her blood sugar. Last blood sugar was 280 reportedly this is unknown if it was postprandial or fasting. Complete Quality Measures for STEMI Alert Patients Related Data Home Medications Medication Instructions Recorded Confirmed Norvasc 5 mg PO QPM 09/16/17 09/16/17 aspirin [Aspirin Low Dose] 81 mg PO DAILY 09/16/17 09/16/17 captopril 25 mg PO BID 09/16/17 09/16/17 metformin 500 mg PO Q OTHER DAY 09/16/17 09/16/17 metoprolol tartrate 50 mg PO BID 09/16/17 09/16/17 omeprazole 20 mg PO DAILY 09/16/17 09/16/17 ticagrelor [Brilinta] 90 mg PO BID 09/16/17 09/16/17 Allergies Allergy/AdvReac Type Severity Reaction Status Date / Time ciprofloxacin Allergy Severe HIVES Verified 09/16/17 03:10 doxycycline Allergy Severe 'BUMPS' Verified 09/16/17 03:10 egg Allergy Severe Hives Verified 09/16/17 03:10 Fish Containing Products Allergy Severe SWELLING Verified 09/16/17 03:10 haloperidol Allergy Severe ITCHING Verified 09/16/17 03:10 AND SWELLING iodine Allergy Severe THROAT Verified 09/16/17 03:10 SWELLS iohexol Allergy Severe ITCHING Verified 09/16/17 03:10 AND SWELLING penicillin G Allergy Severe THROAT Verified 09/16/17 03:10 SWELLS potassium iodide Allergy Severe THROAT Verified 09/16/17 03:10 SWELLS povidone-iodine Allergy Severe THROAT Verified 09/16/17 03:10 SWELLS sodium iodide Allergy Severe THROAT Verified 09/16/17 03:10 SWELLS sodium iodide Allergy Severe THROAT Verified 09/16/17 03:10 SWELLS nitrofurantoin Allergy Mild Hives Verified 09/16/17 03:10 Review of Systems Except as stated in HPI: all other systems reviewed are negative [facility] Medical History Medical History Anxiety (Acute) Asthma (Acute) CAD (coronary artery disease) (Acute) Chest pain (Acute) Diabetes (Acute) GERD (gastroesophageal reflux disease) (Acute) HTN (hypertension) (Acute) History of hysterectomy (Acute) Non-STEMI (non-ST elevated myocardial infarction) (Acute) Surgical History Surgical History History of lumpectomy of right breast (Acute) Hx of appendectomy (Acute) Hx of cholecystectomy (Acute) Stented coronary artery (Acute) Social History Social History Substance History: No History of Abuse Second Hand Smoke Exposure: No Smoking Status: Never smoker How Often Do You Have a Drink Containing Alcohol: Never Recent Travel in [facility] within the Last 8 Weeks: No Recent Out of Country Travel within the Last 8 Weeks: No Exam Narrative Exam Narrative: GENERAL: Well-nourished, well-developed patient. No acute distress no respiratory distress; GCS 15 SKIN: Focused skin assessment warm/dry. HEAD: Normocephalic. EYES: No scleral icterus. No injection or drainage. ENT: Mucous membranes moist airways patent tympanic membranes no redness dullness or loss of. NECK: Supple, trachea midline. No JVD or lymphadenopathy. No meningismus no nuchal rigidity. CARDIOVASCULAR: Regular rate and rhythm without murmurs, gallops, or rubs. Radial dorsalis pedis pulses 2+ to palpation bilaterally RESPIRATORY: Breath sounds equal bilaterally. No accessory muscle use. GASTROINTESTINAL: Abdomen soft, non-tender, nondistended. MUSCULOSKELETAL: No cyanosis, or edema. BACK: Nontender without obvious deformity. No CVA tenderness. Course Initial Documented Vital Signs Temperature 98.5 F 09/16/17 03:10 Pulse Rate 80 09/16/17 03:10 Respiratory Rate 20 09/16/17 03:10 Blood Pressure 217/89 H 09/16/17 03:10 Pulse Oximetry 93 L 09/16/17 03:10 Last Documented Vital Signs Temperature 98.5 F 09/16/17 03:10 Pulse Rate 102 H 09/16/17 06:22 Respiratory Rate 18 09/16/17 06:22 Blood Pressure 179/99 H 09/16/17 06:22 Pulse Oximetry 95 09/16/17 06:22 Medical Decision Making MDM Narrative Medical decision making narrative: 66-year-old female with known history of having dyslipidemia diabetes CAD and previous stent placement presents to the emergency department for complaint of 2-3 days of not feeling well with increasing chest tightness 6/10 intensity and ear pain 6/10 in intensity was feeling flushed and anxious along with shortness of breath without sweats nausea or vomiting. Patient placed on marketing team lead with continuous pulse oximetry IV access obtained specimens collected and sent for resulting EKG performed which showed normal sinus rhythm left ventricular hypertrophy no acute ST elevation injury pattern noted Patient ordered to receive aspirin and sublingual nitroglycerin Patient refused sublingual nitroglycerin and she states it causes her to have a severe headache but will take Nitropaste. Patient also states that she takes Librium for her anxiety and needs to have a Librium refill. Patient denies other concerns or complaints no recent long distance travel protracted bedrest or clotting disorder. EKG no acute process for set of cardiac enzymes are normal range Review of medical records indicates patient has had a abnormal cardiac catheterization in 2014 and a 1-3% annual cardiac related complication by nuclear stress test 01/2017. Patient has not been in the emergency department or hospital for complaint of chest pain since her last visit in 2016. Patient's case discussed with on-call medicine service for observation admission. Differential Diagnosis Differential Diagnosis: Atypical chest pain ACS W[place] pneumonia PE CHF uncontrolled diabetes anxiety Medical Records Medical records reviewed: Yes I reviewed the patient's medical records. Lab Data Lab results reviewed: Yes I reviewed the patient's lab results. Result diagrams: 09/16/17 03:00 09/16/17 03:00 Lab Results 09/16/17 09/16/17 09/16/17 Range/Units 03:00 03:00 03:00 CBC w Diff Auto diff final WBC 10.3 (4.0-11.0) th/mm3 RBC 5.20 (4.00-5.30) mil/mm3 Hgb 14.3 (11.6-15.3) gm/dL Hct 43.7 (35.0-46.0) % MCV 83.9 (80.0-100.0) fL MCH 27.5 (27.0-34.0) pg MCHC 32.8 (32.0-36.0) % RDW 15.2 (11.6-17.2) % Plt Count 593 H (150-450) th/mm3 MPV 8.3 (7.0-11.0) fL Neut % (Auto) 45.9 (16.0-70.0) % Lymph % (Auto) 42.7 (9.0-44.0) % [place] % (Auto) 8.3 H (0.0-8.0) % Eos % (Auto) 2.5 (0.0-4.0) % Baso % (Auto) 0.6 (0.0-2.0) % Neut # (Auto) 4.6 (1.8-7.7) th/mm3 Lymph # (Auto) 4.4 (1.0-4.8) th/mm3 [place] # (Auto) 0.9 (0.0-0.9) th/mm3 Eos # (Auto) 0.3 (0.0-0.4) th/mm3 Baso # (Auto) 0.1 (0.0-0.2) th/mm3 WBC Differential . Differential Comment . PT 10.0 (9.8-11.6) sec INR 1.0 Ratio APTT 30.4 H (24.3-30.1) sec Sodium 136 (136-145) meq/L Potassium 3.7 (3.5-5.1) meq/L Chloride 101 (98-107) meq/L Carbon Dioxide 25.8 (21.0-32.0) meq/L Anion Gap 9 (5-15) meq/L BUN 9 (7-18) mg/dL Creatinine 0.70 (0.50-1.00) mg/dL Estimated GFR 84 L (>89) mL/min POC Glucose (68-110) mg/dl Random Glucose 270 H (74-106) mg/dL Calcium 9.3 (8.5-10.1) mg/dL Magnesium 2.1 (1.5-2.5) mg/dL Total Creatine Kinase 52 (26-192) U/L Troponin I Less than 0.02 L (0.02-0.05) ng/mL Urine Color (Yellw/Straw) Urine Clarity (Clear) Urine pH (5.0-8.5) Ur Specific [place] (1.002-1.035) Urine Protein (Neg-Trace) mg/dL Urine Glucose (UA) (Negative) mg/dL Urine Ketones (Negative) mg/dL Urine Occult Blood (Negative) Urine Nitrate (Negative) Urine Bilirubin (Negative) Urine Urobilinogen (Less than 2) mg/dL Ur Leukocyte Esterase (Negative) Urine RBC (0-3) /hpf Urine WBC (0-5) /hpf Ur Squamous Epith Cells (0-5) /hpf Amorphous Sediment (None) /hpf Urine Bacteria (None) /hpf Micro UA Comment Urine Culture Comments 09/16/17 09/16/17 Range/Units 04:00 04:17 CBC w Diff WBC (4.0-11.0) th/mm3 RBC (4.00-5.30) mil/mm3 Hgb (11.6-15.3) gm/dL Hct (35.0-46.0) % MCV (80.0-100.0) fL MCH (27.0-34.0) pg MCHC (32.0-36.0) % RDW (11.6-17.2) % Plt Count (150-450) th/mm3 MPV (7.0-11.0) fL Neut % (Auto) (16.0-70.0) % Lymph % (Auto) (9.0-44.0) % [place] % (Auto) (0.0-8.0) % Eos % (Auto) (0.0-4.0) % Baso % (Auto) (0.0-2.0) % Neut # (Auto) (1.8-7.7) th/mm3 Lymph # (Auto) (1.0-4.8) th/mm3 [place] # (Auto) (0.0-0.9) th/mm3 Eos # (Auto) (0.0-0.4) th/mm3 Baso # (Auto) (0.0-0.2) th/mm3 WBC Differential Differential Comment PT (9.8-11.6) sec INR Ratio APTT (24.3-30.1) sec Sodium (136-145) meq/L Potassium (3.5-5.1) meq/L Chloride (98-107) meq/L Carbon Dioxide (21.0-32.0) meq/L Anion Gap (5-15) meq/L BUN (7-18) mg/dL Creatinine (0.50-1.00) mg/dL Estimated GFR (>89) mL/min POC Glucose 249 H (68-110) mg/dl Random Glucose (74-106) mg/dL Calcium (8.5-10.1) mg/dL Magnesium (1.5-2.5) mg/dL Total Creatine Kinase (26-192) U/L Troponin I (0.02-0.05) ng/mL Urine Color Yellow (Yellw/Straw) Urine Clarity Clear (Clear) Urine pH 6.5 (5.0-8.5) Ur Specific [place] Less/equal 1.005 (1.002-1.035) Urine Protein Negative (Neg-Trace) mg/dL Urine Glucose (UA) 250 H (Negative) mg/dL Urine Ketones Negative (Negative) mg/dL Urine Occult Blood Trace (Negative) Urine Nitrate Negative (Negative) Urine Bilirubin Negative (Negative) Urine Urobilinogen 0.2 (Less than 2) mg/dL Ur Leukocyte Esterase Negative (Negative) Urine RBC 0-3 (0-3) /hpf Urine WBC 0-5 (0-5) /hpf Ur Squamous Epith Cells 0-5 (0-5) /hpf Amorphous Sediment Few H (None) /hpf Urine Bacteria Rare H (None) /hpf Micro UA Comment Culture not ind Urine Culture Comments Culture not ind Imaging Data Radiologist's impression: Chest X-Ray 09/16/17 03:01 CONCLUSION: No acute disease ECG Data EKG Prior to Arrival: No Attestation: I personally reviewed and interpreted this ECG as follows: Prior ECG tracings: available for review Interpretation: EKG: Normal sinus rhythm rate 90 left axis deviation left ventricular hypertrophy by voltage criteria no acute ST elevation or injury pattern change Discharge Plan Discharge Disposition Patient Disposition: 30 Still Patient Discharge Condition Condition: Stable Discharge Details Diagnosis: Chest pain, H/O cardiac disorder Physicians Team ED Provider: Caroline Chapman Primary Care Provider: Gopal Reynolds Attending Provider: Jessica Macedo ED Status: Admitted Observation Patient
--- NOTE | 2017-09-16 03:22 | XR ---
EXAM DATE: 09/16/2017 3:15 AM EDT AGE/SEX: 66 years / Female INDICATIONS: Chest pain. CLINICAL DATA: This is the patient's initial encounter. Patient reports that signs and symptoms have been present for 3 days and indicates a pain score of 6/10. MEDICAL/SURGICAL HISTORY: . Hypertension. Diabetes mellitus type 2. Coronary artery disease and asthma. . Colon resection. Cholecystectomy. Coronary artery stent. Hysterectomy, splenectomy and ri ght mastectomy. COMPARISON: [facility], CHEST SINGLE AP, 01/02/2017. . FINDINGS: Lungs are focally clear. No pleural effusion evident. Cardiac contours are satisfactory for technique and rotation. Coronary stents are noted. CONCLUSION: No acute disease Electronically signed by: Mateus Quintana MD 09/16/2017 3:20 AM EDT
[2017-09-16 03:25] LABS: Baso # (Auto) 0.1 th/mm3 (0.0-0.2); Baso % (Auto) 0.6 % (0.0-2.0); Eos # (Auto) 0.3 th/mm3 (0.0-0.4); Eos % (Auto) 2.5 % (0.0-4.0); Hematocrit 43.7 % (35.0-46.0); Hemoglobin 14.3 gm/dL (11.6-15.3); Lymph # (Auto) 4.4 th/mm3 (1.0-4.8); Lymph % (Auto) 42.7 % (9.0-44.0); Mean Corpuscular HGB Conc 32.8 % (32.0-36.0); Mean Corpuscular Hemoglobin 27.5 pg (27.0-34.0); Mean Corpuscular Volume 83.9 fL (80.0-100.0); Mean Platelet Volume 8.3 fL (7.0-11.0); Mono # (Auto) 0.9 th/mm3 (0.0-0.9); Mono % (Auto) 8.3 % (0.0-8.0); Neut # (Auto) 4.6 th/mm3 (1.8-7.7); Neut % (Auto) 45.9 % (16.0-70.0); Platelet Count 593 th/mm3 (150-450); Red Cell Distribution Width 15.2 % (11.6-17.2); White Blood Count 10.3 th/mm3 (4.0-11.0)
[2017-09-16 03:39] LABS: Chloride 101 meq/L (98-107); Potassium 3.7 meq/L (3.5-5.1); Sodium 136 meq/L (136-145)
[2017-09-16 03:41] LABS: Calcium 9.3 mg/dL (8.5-10.1)
[2017-09-16 03:42] LABS: Anion Gap 9 meq/L (5-15); Blood Urea Nitrogen 9 mg/dL (7-18); Carbon Dioxide 25.8 meq/L (21.0-32.0); Glucose,Random 270 mg/dL (74-106); Magnesium 2.1 mg/dL (1.5-2.5)
[2017-09-16 03:44] LABS: Activated Partial Thrombo Time 30.4 sec (24.3-30.1)
[2017-09-16 03:45] LABS: Glomerular Filtration Rate 84 mL/min (>89)
[2017-09-16 04:21] LABS: Bilirubin,Urine Negative (Negative); Clarity,Urine Clear (Clear); Color,Urine Yellow (Yellw/Straw); Glucose,Urine (UA) 250 mg/dL (Negative); Leukocyte Esterase,Urine Negative (Negative); Nitrite,Urine Negative (Negative); PH,Urine 6.5 (5.0-8.5); Specific Gravity,Urine Less/Equal 1.005 (1.002-1.035); Urobilinogen,Urine 0.2 mg/dL (Less than 2)
[2017-09-16 04:28] LABS: Amorphous Sediment,Urine Few /hpf; Bacteria,Urine Rare /hpf; RBC,Urine 0-3 /hpf (0-3); Squamous Epithelial Cell,Urine 0-5 /hpf (0-5); WBC,Urine 0-5 /hpf (0-5)
[2017-09-16 05:51] LABS: Creatine Kinase 52 U/L (26-192)
[2017-09-16 07:17] LABS: Creatine Kinase 67 U/L (26-192)
--- NOTE | 2017-09-16 07:56 | P.HP ---
History of Present Illness Primary Care Physician: Gopal Reynolds DO History of Present Illness: This is a 66-year-old female patient with a known medical history of hypertension, anxiety, diabetes, CAD with prior stent placement who presented to the ED with planes of chest pain. After review of records it should be noted that patient has presented multiple times with similar complaints, follows with Dr. Harding in the outpatient setting. A myocardial perfusion scan was performed last year in January showing some reversibility defect in the anterior wall without ruling out ischemia. At that time Dr. Harding was contacted and updated about patient's status, was discharged home upon his approval and advised to follow-up in his office. Patient states that she attempted to see him in his office but with changes to her insurance she has been unable to follow-up. Today she presents with midsternal chest pain that is reproducible to palpation. She states that she was exercising 2 days ago and the next day she noticed a midsternal chest tightness. She states she took Tylenol which did help with some of the pain. She denies any associated nausea , vomiting or sweating with the pain. Does admit to some shortness of breath. She does admit to this pain before, patient has underwent a cardiac catheterization with stent placement. Patient denies any recent illness including fever, chills, headache, abdominal pain, nausea, vomiting, diarrhea or dysuria. She does admit to a cough that is nonproductive over the past couple days. She does state that she has been around sick contacts lately. - Diagnosis (1) Chest pain (2) Hypertension (3) Type 2 diabetes mellitus Review of Systems All other systems reviewed negative except as stated in HPI PMFSH - History History Provided By: Patient, Medical Record - Medical History Medical History: Medical History (Last Reviewed 09/16/17 @ 06:41 by Caroline Chapman MD) Anxiety Asthma CAD (coronary artery disease) Chest pain Diabetes GERD (gastroesophageal reflux disease) HTN (hypertension) History of hysterectomy Non-STEMI (non-ST elevated myocardial infarction) - Surgical History Surgical History: Surgical History (Last Reviewed 09/16/17 @ 06:41 by Caroline Chapman MD) History of lumpectomy of right breast Hx of appendectomy Hx of cholecystectomy Stented coronary artery - Family History Family History: Family History (Last Updated 09/16/17 @ 09:50 by Leeann Dailey) Other No significant family history - Tobacco History Second Hand Smoke Exposure: No Smoking Status: Never smoker - Alcohol History How Often Do You Have a Drink Containing Alcohol: Never - Substance Use History Substance History: No History of Abuse - Travel History Recent Travel in the [place] Within the Last 8 Weeks: No Recent Travel Out of the Country Within the Last 8 Weeks: No - Immunization History Tetanus Immunization: Unsure Medications and Allergies Active Medications: Active Medications Aspirin (Aspirin) 325 mg PO DAILY CAR Nitroglycerin (Nitrostat Sl) 0.4 mg SL Q5M PRN PRN Reason: CHEST PAIN Sodium Chloride (Ns Flush) 2 ml IV.FLUSH UNSCH PRN PRN Reason: FLUSH AFTER USING IV ACCESS Last Admin: 09/16/17 04:22 Dose: 2 ml Sodium Chloride (Ns Flush) 2 ml IV.FLUSH BID CAR Sodium Chloride (Ns Flush) 2 ml IV.FLUSH PRN PRN PRN Reason: FLUSH AFTER USING IV ACCESS Allergies Allergy/AdvReac Type Severity Reaction Status Date / Time ciprofloxacin Allergy Severe HIVES Verified 09/16/17 03:10 doxycycline Allergy Severe 'BUMPS' Verified 09/16/17 03:10 egg Allergy Severe Hives Verified 09/16/17 03:10 Fish Containing Products Allergy Severe SWELLING Verified 09/16/17 03:10 haloperidol Allergy Severe ITCHING Verified 09/16/17 03:10 AND SWELLING iodine Allergy Severe THROAT Verified 09/16/17 03:10 SWELLS iohexol Allergy Severe ITCHING Verified 09/16/17 03:10 AND SWELLING penicillin G Allergy Severe THROAT Verified 09/16/17 03:10 SWELLS potassium iodide Allergy Severe THROAT Verified 09/16/17 03:10 SWELLS povidone-iodine Allergy Severe THROAT Verified 09/16/17 03:10 SWELLS sodium iodide Allergy Severe THROAT Verified 09/16/17 03:10 SWELLS sodium iodide Allergy Severe THROAT Verified 09/16/17 03:10 SWELLS nitrofurantoin Allergy Mild Hives Verified 09/16/17 03:10 Home Medications Medication Instructions Recorded Confirmed Type Norvasc 5 mg PO QPM 09/16/17 09/16/17 History aspirin [Aspirin Low Dose] 81 mg PO DAILY 09/16/17 09/16/17 History captopril 25 mg PO BID 09/16/17 09/16/17 History metformin 500 mg PO Q OTHER DAY 09/16/17 09/16/17 History metoprolol tartrate 50 mg PO BID 09/16/17 09/16/17 History omeprazole 20 mg PO DAILY 09/16/17 09/16/17 History ticagrelor [Brilinta] 90 mg PO BID 09/16/17 09/16/17 History Exam Vital signs: Vital Signs 09/16/17 03:10 09/16/17 04:25 09/16/17 04:28 Temperature 98.5 F Pulse Rate 80 Respiratory Rate 20 Blood Pressure 217/89 H Blood Pressure [Left Arm] 207/98 H Blood Pressure [Right Arm] 207/81 H Pulse Oximetry 93 L 97 09/16/17 04:29 09/16/17 06:22 09/16/17 06:52 Temperature Pulse Rate 102 H 103 H Respiratory Rate 18 18 Blood Pressure 179/99 H 182/88 H Blood Pressure [Left Arm] Blood Pressure [Right Arm] Pulse Oximetry 97 95 94 L Intake & Output 09/15/17 09/16/17 09/16/17 18:59 06:59 18:59 Output Total 900 / 900 Balance -900 / -900 Weight 88.6 kg Output: Urine 900 / 900 Narrative: GENERAL: Well-developed, obese female patient in [facility]. SKIN: Warm and dry. No rash. HEAD: Normocephalic. Atraumatic. EYES: Pupils equal and round. No scleral icterus. No injection or drainage. ENT: No nasal bleeding or discharge. Mucous membranes pink and moist. NECK: Supple. Trachea midline. CARDIOVASCULAR: Regular rate and rhythm. S1, S2 noted. No murmur appreciated. Some reproducible chest discomfort to palpation. RESPIRATORY: No accessory muscle use. Clear to auscultation. Breath sounds equal bilaterally. GASTROINTESTINAL: Abdomen soft, non-tender, nondistended. Normoactive bowel sounds x4. MUSCULOSKELETAL: No obvious deformities. Extremities without clubbing, cyanosis , or edema. NEUROLOGICAL: Awake and alert. No obvious cranial nerve deficits. Motor grossly within normal limits. 5/5 muscle strength in bilateral upper and lower extremities. Normal speech. PSYCHIATRIC: Appropriate mood and affect; insight and judgment normal. - Constitutional no acute distress - Routine HEENT Exam Head: Present: normocephalic Eye: Present: EOMI ENT: Present: mucous membranes moist - Routine Neck Exam Present: supple Results - Labs CBC & Chem 7: 09/16/17 03:00 09/16/17 03:00 Labs: Laboratory Results - last 24 hr 09/16/17 09/16/17 09/16/17 03:00 03:00 03:00 CBC w Diff Auto diff final WBC 10.3 RBC 5.20 Hgb 14.3 Hct 43.7 MCV 83.9 MCH 27.5 MCHC 32.8 RDW 15.2 Plt Count 593 H MPV 8.3 Neut % (Auto) 45.9 Lymph % (Auto) 42.7 [place] % (Auto) 8.3 H Eos % (Auto) 2.5 Baso % (Auto) 0.6 Neut # (Auto) 4.6 Lymph # (Auto) 4.4 [place] # (Auto) 0.9 Eos # (Auto) 0.3 Baso # (Auto) 0.1 WBC Differential . Differential Comment . PT 10.0 INR 1.0 APTT 30.4 H Sodium 136 Potassium 3.7 Chloride 101 Carbon Dioxide 25.8 Anion Gap 9 BUN 9 Creatinine 0.70 Estimated GFR 84 L POC Glucose Random Glucose 270 H Calcium 9.3 Magnesium 2.1 Total Creatine Kinase 52 Troponin I Less than 0.02 L Urine Color Urine Clarity Urine pH Ur Specific [place] Urine Protein Urine Glucose (UA) Urine Ketones Urine Occult Blood Urine Nitrate Urine Bilirubin Urine Urobilinogen Ur Leukocyte Esterase Urine RBC Urine WBC Ur Squamous Epith Cells Amorphous Sediment Urine Bacteria Micro UA Comment Urine Culture Comments 09/16/17 09/16/17 09/16/17 04:00 04:17 06:40 CBC w Diff WBC RBC Hgb Hct MCV MCH MCHC RDW Plt Count MPV Neut % (Auto) Lymph % (Auto) [place] % (Auto) Eos % (Auto) Baso % (Auto) Neut # (Auto) Lymph # (Auto) [place] # (Auto) Eos # (Auto) Baso # (Auto) WBC Differential Differential Comment PT INR APTT Sodium Potassium Chloride Carbon Dioxide Anion Gap BUN Creatinine Estimated GFR POC Glucose 249 H Random Glucose Calcium Magnesium Total Creatine Kinase 67 Troponin I Less than 0.02 L Urine Color Yellow Urine Clarity Clear Urine pH 6.5 Ur Specific [place] Less/equal 1.005 Urine Protein Negative Urine Glucose (UA) 250 H Urine Ketones Negative Urine Occult Blood Trace Urine Nitrate Negative Urine Bilirubin Negative Urine Urobilinogen 0.2 Ur Leukocyte Esterase Negative Urine RBC 0-3 Urine WBC 0-5 Ur Squamous Epith Cells 0-5 Amorphous Sediment Few H Urine Bacteria Rare H Micro UA Comment Culture not ind Urine Culture Comments Culture not ind - Imaging Impressions Chest X-Ray 09/16/17 03:01 CONCLUSION: No acute disease Caprini VTE Risk Assessment Caprini VTE Risk Assessment: Moderate/High Risk (score >= 2) Caprini Risk Assessment Model: Point Value = 1 Point Value = 2 Point Value = 3 Point Value = 5 Age 41-60 Minor surgery BMI > 25 kg/m2 Swollen legs Varicose veins or History of unexplained or recurrent spontaneous Oral contraceptives or hormone replacement Sepsis (< 1 month) Serious lung disease, including pneumonia (< 1 month) Abnormal pulmonary function Acute myocardial infarction Congestive heart failure (< 1 month) History of inflammatory bowel disease Medical patient at bed rest Age 61-74 Arthroscopic surgery Major open surgery (> 45 min) Laparoscopic surgery (> 45 min) Malignancy Confined to bed (> 72 hours) Immobilizing plaster cast Central venous access Age >= 75 History of VTE Family history of VTE Factor V Leiden Prothrombin [id number] Lupus anticoagulant Anticardiolipin antibodies Elevated serum homocysteine Heparin-induced thrombocytopenia Other congenital or acquired thrombophilia Stroke (< 1 month) Elective arthroplasty Hip, pelvis, or leg fracture Acute spinal cord injury (< 1 month) Prophylaxis Regimen: Total Risk Factor Score Risk Level Prophylaxis Regimen 0-1 Low Early ambulation 2 Moderate Order ONE of the following: *Sequential Compression Device (SCD) *Heparin 5000 units SQ BID 3-4 Higher Order ONE of the following medications: *Heparin 5000 units SQ TID *Enoxaparin/Lovenox 40 mg SQ daily (WT < 150 kg, CrCl > 30 mL/min) *Enoxaparin/Lovenox 30 mg SQ daily (WT < 150 kg, CrCl > 10-29 mL/min) *Enoxaparin/Lovenox 30 mg SQ BID (WT < 150 kg, CrCl > 30 mL/min) AND/OR *Sequential Compression Device (SCD) 5 or more Highest Order ONE of the following medications: *Heparin 5000 units SQ TID (Preferred with Epidurals) *Enoxaparin/Lovenox 40 mg SQ daily (WT < 150 kg, CrCl > 30 mL/min) *Enoxaparin/Lovenox 30 mg SQ daily (WT < 150 kg, CrCl > 10-29 mL/min) *Enoxaparin/Lovenox 30 mg SQ BID (WT < 150 kg, CrCl > 30 mL/min) AND *Sequential Compression Device (SCD) Assessment and Plan - Assessment (1) Chest pain Code(s): R07.9 - Chest pain, unspecified Status: Acute Plan: Patient has been admitted to the chest pain center for observation. Serial EKGs and serial troponins have been normal ordered for ruling out ACS purposes. Initial troponin flat. Continue to monitor trend. EKG reviewed showing normal sinus rhythm with some LVH, no ST changes noted. Patient did receive aspirin in ED, refused nitroglycerin due to fear of side effects. Chest x-ray reviewed, essentially unremarkable. Labs unremarkable. Call placed to road contractor trust vault clerk, Dr. Pepe, will consult for further recommendations. At this time patient is refusing to undergo another stress test, but I do not feel comfortable discharging her seen by a trust vault clerk. For now, will continue monitoring on cardiac telemetry. Medications from home restarted including her Librium. Chest pain has diminished, reproducible on exam. Will provide some Toradol. Last echocardiogram was in 2014. Will order for repeat. Follow. Await cardiology input recommendations. (2) Hypertension Code(s): I10 - Essential (primary) hypertension Status: Acute Plan: Pressure elevated. Will continue to monitor trends. Continue home medications. (3) Type 2 diabetes mellitus Code(s): E11.9 - Type 2 diabetes mellitus without complications Status: Acute Plan: Accu-Chek before meals at bedtime, sliding scale, cover as needed. Monitor blood sugar trends. - Plan DVT prophylaxis: SCDs. (1) Chest pain Qualifiers: Chest pain type: precordial pain Qualified Code(s): R07.2 - Precordial pain
[2017-09-16] MEDS ORDERED: ALPRAZolam 0.5 MG Tablet PO ONE (08:08)
[2017-09-16] MEDS: Aspirin 325 MG Tablet PO SCH (08:46)
[2017-09-16] MEDS: Pantoprazole Sodium 20 MG DR Tablet PO SCH (08:47)
[2017-09-16] MEDS: Metoprolol Tartrate 50 MG Tablet PO SCH ×2 (08:47→20:52)
[2017-09-16] MEDS ORDERED: Dextrose 50% in Water 50 ML Vial IV.PUSH PRN (09:36)
[2017-09-16 10:30] LABS: Creatine Kinase 55 U/L (26-192)
[2017-09-16] MEDS: Insulin NovoLOG Aspart Correctional Sugar Inj SQ SCH ×3 (12:00→21:50)
[2017-09-16] MEDS ORDERED: amLODIPine 5 MG Tablet PO SCH (18:00)
[2017-09-16] MEDS ORDERED: ALPRAZolam 0.5 MG Tablet PO PRN (22:02)
--- NOTE | 2017-09-16 22:42 | MB ---
cc: Ok Pepe MD DATE: 09/16/2017 REASON FOR CONSULTATION: Chest pain. HISTORY OF PRESENT ILLNESS: Mrs. Rodriguez is a 66-year-old female with morbid obesity, history of high blood pressure, hyperlipidemia, diabetes mellitus. She has a previous left heart catheterization and PTCA plus stent in 2014. Last January, she had a nuclear stress study that indicated no ischemia. The patient was following by . She referred not taking her medications properly and she was not covered the medication, she has to stretch it to last longer. She referred some chest discomfort when lying down or taking a deep breath. Troponin negative. No acute ST changes. I was consulted for evaluation and management. The chart was reviewed. The patient was evaluated. I discussed the case over the phone with Dr. Chapman. ALLERGIES: CIPRO, DOXYCYCLINE, EGGS, FISH, ALLOPURINOL. SOCIAL HISTORY: The patient used to be a chronic smoker, but stopped smoking. FAMILY HISTORY: Noncontributory to her current medical condition. MEDICATIONS AT HOME: She is on Norvasc 5 mg a day, aspirin 81 mg a day, captopril 25 mg twice a day, metformin 500 mg every other day, metoprolol 50 mg twice a day, omeprazole, Brilinta 90 mg twice a day. Currently, in the hospital, insulin was added, as well as Xanax. REVIEW OF SYSTEMS: Currently, she referred no chest pain. She said chest pain on palpation and when taking a deep breath. No fever. PHYSICAL EXAMINATION: GENERAL: Alert, fully oriented. VITAL SIGNS: Blood pressure 152/76, pulse 74, respiratory rate 20. LUNGS: Ventilated. CARDIOVASCULAR: S1, S2. No gallop. No murmur. ABDOMEN: Obese. No masses. LOWER EXTREMITIES: No edema. ELECTROCARDIOGRAM: Indicates sinus rhythm, no acute ST and T-wave changes. LABORATORY DATA: Hemoglobin is 14.3, white blood cell 10.0. INR 1.0. Potassium 3.7, creatinine 0.70. Troponin less than 0.02. ASSESSMENT AND RECOMMENDATIONS: Mrs. Rodriguez currently is stable, asymptomatic. She refers a lot of anxiety. She referred feeling after receiving Xanax, that helped calm her anxiety. She told me she is worried about her condition because she has previous stent and was not able to afford the medication. Apparently, she was followed by and was not seeing him because of insurance issue. Her chest pain is very confusing. She referred only pressure when taking a deep breath, as well as symptom reproduced on palpation. At this point, the patient has multiple risk factors, obesity, high blood pressure, diabetes mellitus. I am going to discuss the case with one of the interventional cardiologists. Cardiac catheterization may be necessary. For now, we will continue medical management. Case discussed with the patient. Xanax will be resumed tonight. I am going to increase amlodipine to 10 mg a day. MD EVELIN Kaba/PAT , 10:01 PM , 10:41 PM
--- NOTE | 2017-09-17 07:47 | P.PNCA ---
Subjective Interval history: Pt w/o any further chest pressure (which she said she could reproduce by pressing on her chest.) Physical Exam Vital signs: Vital Signs 09/16/17 08:00 09/16/17 08:25 09/16/17 09:15 Temperature 97.9 F Pulse Rate 89 89 Respiratory Rate 20 Blood Pressure 169/74 H Pulse Oximetry 96 96 09/16/17 11:17 09/16/17 14:47 09/16/17 16:07 Temperature 98.8 F 98.6 F Pulse Rate 73 74 Respiratory Rate 20 16 20 Blood Pressure 151/79 H 152/76 H Pulse Oximetry 96 96 09/16/17 19:35 09/16/17 20:00 09/17/17 00:00 Temperature 98.1 F 98.3 F Pulse Rate 72 75 Respiratory Rate 16 16 Blood Pressure 166/72 H 140/66 Pulse Oximetry 98 95 95 09/17/17 04:00 Temperature 98.2 F Pulse Rate 75 Respiratory Rate 16 Blood Pressure 138/73 Pulse Oximetry 95 Intake & Output 09/16/17 09/17/17 09/17/17 18:59 06:59 18:59 Intake Total 720 / 720 Output Total 900 / 900 Balance -180 / -180 Weight 88.4 kg Intake: Oral 720 / 720 Output: Urine 900 / 900 Other: # Voids 4 Weight On Admission 88.4 kg - Constitutional no acute distress - Routine HEENT Exam Head: Present: normocephalic - Routine Respiratory Exam Present: CTA bilaterally - Routine Cardiovascular Exam Present: RRR, murmur - Detailed Cardiovascular Exam: Murmur 2 Comments: 2/6 systolic murmur - Routine Abdominal Exam Present: soft - Routine Extremities Exam Absent: edema - Routine Skin Exam Present: intact Assessment and Plan - Plan Pt with known complicate hx of CAD w/ non-cardiac chest pain; her chest pain yesterday was clearly non-cardiac, reproducible and now gone. She does sound to have some by exam, though it doesn't sound severe, echo report pending. She declines repeat nuclear stress test or referral for cardiac cath, she wants to go home on medical mgt. Will sign off, pls call if significant findings on echo or any problems arise.
[2017-09-17] MEDS: Insulin NovoLOG Aspart Correctional Sugar Inj SQ SCH ×2 (08:12→11:38)
--- NOTE | 2017-09-17 08:14 | P.PNIM ---
Subjective Interval history: Follow-up chest pain and anxiety. Patient seen and examined, lying in bed comfortably no apparent distress. No acute events overnight. Cardiology and to see patient, patient declining any further cardio workup including cardiac catheterization or nuclear myocardial perfusion scan. Patient will be discharged home follow-up with PCP and director of front office. Vital signs stable. Afebrile. Physical Exam Vital signs: Vital Signs 09/16/17 08:25 09/16/17 09:15 09/16/17 11:17 Temperature 97.9 F 98.8 F Pulse Rate 89 89 73 Respiratory Rate 20 20 Blood Pressure 169/74 H 151/79 H Pulse Oximetry 96 96 09/16/17 14:47 09/16/17 16:07 09/16/17 19:35 Temperature 98.6 F Pulse Rate 74 Respiratory Rate 16 20 Blood Pressure 152/76 H Pulse Oximetry 96 98 09/16/17 20:00 09/17/17 00:00 09/17/17 04:00 Temperature 98.1 F 98.3 F 98.2 F Pulse Rate 72 75 75 Respiratory Rate 16 16 16 Blood Pressure 166/72 H 140/66 138/73 Pulse Oximetry 95 95 95 Intake & Output 09/16/17 09/17/17 09/17/17 18:59 06:59 18:59 Intake Total 720 / 720 Output Total 900 / 900 Balance -180 / -180 Weight 88.4 kg Intake: Oral 720 / 720 Output: Urine 900 / 900 Other: # Voids 4 Weight On Admission 88.4 kg Narrative: GENERAL: Well-developed, obese female patient in [facility]. SKIN: Warm and dry. No rash. HEAD: Normocephalic. Atraumatic. EYES: Pupils equal and round. No scleral icterus. No injection or drainage. ENT: No nasal bleeding or discharge. Mucous membranes pink and moist. NECK: Supple. Trachea midline. CARDIOVASCULAR: Regular rate and rhythm. S1, S2 noted. 3/6 systolic murmur. No chest pain to palpation. RESPIRATORY: No accessory muscle use. Clear to auscultation. Breath sounds equal bilaterally. GASTROINTESTINAL: Abdomen soft, non-tender, nondistended. Normoactive bowel sounds x4. MUSCULOSKELETAL: No obvious deformities. Extremities without clubbing, cyanosis , or edema. NEUROLOGICAL: Awake and alert. No obvious cranial nerve deficits. Motor grossly within normal limits. 5/5 muscle strength in bilateral upper and lower extremities. Normal speech. PSYCHIATRIC: Appropriate mood and affect; insight and judgment normal. - Constitutional no acute distress - Routine HEENT Exam Head: Present: normocephalic Eye: Present: EOMI ENT: Present: mucous membranes moist - Routine Neck Exam Present: supple Results - Labs CBC & Chem 7: 09/16/17 03:00 09/16/17 03:00 Laboratory Results - last 24 hr 09/16/17 09/16/17 09/16/17 08:45 09:51 11:35 POC Glucose 223 H 188 H Total Creatine Kinase 55 Troponin I Less than 0.02 L 09/16/17 09/16/17 09/17/17 16:38 20:58 07:40 POC Glucose 152 H 174 H 210 H Total Creatine Kinase Troponin I 09/17/17 07:42 POC Glucose 174 H Total Creatine Kinase Troponin I Assessment and Plan - Assessment (1) Chest pain Code(s): R07.9 - Chest pain, unspecified Status: Acute Plan: Patient has been admitted to the chest pain center for observation. Serial EKGs and serial troponins have been normal ordered for ruling out ACS purposes. Troponins flat. EKG reviewed showing normal sinus rhythm with some LVH, no ST changes noted. Patient did receive aspirin in ED, refused nitroglycerin due to fear of side effects. Chest x-ray reviewed, essentially unremarkable. Labs unremarkable. Cardiology and to see patient, patient is refusing another stress test or cardiac catheterization. Dr. Engel is known to patient, will discharge to follow-up outpatient. Chest pain has resolved. Likely secondary to anxiety. Did improve with Xanax. Last echocardiogram was in 2014. Echocardiogram showing 50-55% EF. Some mild aortic stenosis. (2) Hypertension Code(s): I10 - Essential (primary) hypertension Status: Acute Plan: Blood pressure stable. (3) Type 2 diabetes mellitus Code(s): E11.9 - Type 2 diabetes mellitus without complications Status: Acute Plan: Continue home diabetes medications upon discharge. Diabetic diet. - Plan DVT prophylaxis: SCDs. Discharge Planning: Discharge home follow-up with PCP and cardiology. Diabetic diet heart healthy diet. To be ordered as tolerated. Prescriptions per discharge plan. (1) Chest pain Qualifiers: Chest pain type: precordial pain Qualified Code(s): R07.2 - Precordial pain
[2017-09-17] MEDS: Aspirin 325 MG Tablet PO SCH (08:50)
[2017-09-17] MEDS: Metoprolol Tartrate 50 MG Tablet PO SCH (08:50)
[2017-09-17] MEDS: Pantoprazole Sodium 20 MG DR Tablet PO SCH (08:50)
[2017-09-17] MEDS ORDERED: amLODIPine 10 MG Tablet PO SCH (09:00)
--- NOTE | 2017-09-17 09:24 | ECHRPT ---
Indication: CHEST PAIN CONCLUSIONS Normal left ventricular size. Moderate concentric left ventricular hypertrophy. The left ventricular systolic function is low normal with an estimated ejection fraction in the rang e of 50- 55%. Mitral annular calcification is present. Trace mitral valve regurgitation. Mild aortic valve stenosis. Mild thickening of the aortic valve leaflets. Aortic valve mean gradient is 14 mmHg. Mild aortic valve regurgitation. BP: / HR: Rhythm: Technical Quality: FINDINGS LEFT VENTRICLE Normal left ventricular size. Moderate concentric left ventricular hypertrophy. The left ventricular systolic function is low normal with an estimated ejection fraction in the rang e of 50- 55%. RIGHT VENTRICLE Normal right ventricular size and systolic function. LEFT ATRIUM The left atrial size is normal. RIGHT ATRIUM The right atrial size is normal. ATRIAL SEPTUM Normal atrial septal thickness without atrial level shunting by limited color doppler interrogation. AORTA The aortic root and proximal ascending aorta are normal in size on limited imaging. MITRAL VALVE Mitral annular calcification is present. Trace mitral valve regurgitation. AORTIC VALVE Mild aortic valve stenosis. Mild thickening of the aortic valve leaflets. Aortic valve mean gradient is 14 mmHg. Mild aortic valve regurgitation. TRICUSPID VALVE Structurally normal tricuspid valve. No tricuspid valve stenosis or regurgitation. PULMONARY VALVE The pulmonary valve is not well visualized. VESSELS The inferior vena cava is normal in size. PERICARDIUM No pericardial effusion. Ok Pepe MD (Electronically Signed) Final Date:17 September 2017 09:23
--- NOTE | 2017-09-17 12:02 | ECG ---
Date Performed: 09/16/2017 Time Performed: 09:58:09 PTAGE: 66 years EKG: Sinus rhythm BORDERLINE LEFT AXIS DEVIATION LEFT VENTRICULAR HYPERTROPHY AND ST-T CHANGE ABNORMAL ECG PREVIOUS TRACING : 09/16/2017 06.40 DOCTOR: Ok Pepe Interpretating Date/Time 09/17/2017 12:00:25
--- NOTE | 2017-09-17 12:06 | ECG ---
Date Performed: 09/16/2017 Time Performed: 06:40:30 PTAGE: 66 years EKG: SINUS TACHYCARDIA BORDERLINE LEFT AXIS DEVIATION VOLTAGE CRITERIA FOR LVH MODERATE ST DEPRE SSION ABNORMAL ECG PREVIOUS TRACING : 09/16/2017 02.50 DOCTOR: Ok Pepe Interpretating Date/Time 09/17/2017 12:02:46
--- NOTE | 2017-09-17 12:07 | ECG ---
Date Performed: 09/16/2017 Time Performed: 02:50:02 PTAGE: 66 years EKG: Sinus rhythm BORDERLINE LEFT AXIS DEVIATION LEFT VENTRICULAR HYPERTROPHY AND ST-T CHANGE ABNORMAL ECG PREVIOUS TRACING : 01/03/2017 01.36 DOCTOR: Ok Pepe Interpretating Date/Time 09/17/2017 12:03:34
== END 2017-09-17 14:23 | disposition home or self-care (01) ==
LOC: PH3 02:42 → PHED 02:42 → PHEDA 02:42 → PH3 07:27
PROVIDERS: ADMIT Hospitalist; ATTEND Hospitalist

== ENCOUNTER 2018-01-08 18:45 | Observation (INO) ==
--- NOTE | 2018-01-08 21:13 | ED ---
HPI General Chief complaint: Nausea/Vomiting/Diarrhea Stated complaint: Abd Pain/N/V/D Time Seen by Provider: 01/08/18 21:08 Source: patient Mode of arrival: ambulatory Limitations: no limitations History of Present Illness MD complaint: Reports nausea, vomiting, diarrhea and abdominal pain Onset (ago): hour(s) (12:30 pm today) Description of Vomiting: food contents and watery Description of Diarrhea: watery Associated Abdominal Pain: Yes Location of pain: Reports diffuse Radiation: does not radiate Severity: moderate Quality: Reports cramping Pain Consistency: intermittent Relieving factors: none Exacerbating factors: none Context: Reports sick contacts (possibly --family friend); Denies foreign travel , possible food poisoning, recent antibiotic use, recent surgery/procedure, history of abdominal surgery, alcohol abuse, trauma, anticoagulant use, aspirin use, caffeine, self induced, smoking, CO exposure, new medication and marijuana use Associated symptoms: Reports denies other symptoms and nausea/vomiting; Denies myalgias, chest pain, cough, diaphoresis, fever/chills, headaches, loss of appetite, malaise, rash, dysuria, shortness of breath, syncope, weakness, decreased urine output, fecal incontinence, tenesmus, altered mental status, anxiety, fatigue, bloating, numbness, tinnitus, palpitation and change in vision Related Data Home Medications Medication Instructions Recorded Confirmed albuterol sulfate 2 puff INHALATION Q4-6H PRN 12/24/17 12/24/17 amlodipine 5 mg PO DAILY 12/24/17 12/24/17 aspirin 81 mg PO DAILY 12/24/17 12/24/17 captopril 25 mg PO BID 12/24/17 12/24/17 metformin 500 mg PO BID 12/24/17 12/24/17 metoprolol succinate 50 mg PO DAILY 12/24/17 12/24/17 pantoprazole [Protonix] 20 mg PO DAILY 12/24/17 12/24/17 pravastatin 40 mg PO DAILY 12/24/17 12/24/17 ticagrelor [Brilinta] 90 mg PO BID 12/24/17 12/24/17 Previous Rx's Medication Instructions Recorded chlordiazepoxide HCl 25 mg PO Q6-8H PRN #14 cap 12/24/17 Allergies Allergy/AdvReac Type Severity Reaction Status Date / Time ciprofloxacin Allergy Severe HIVES Verified 01/08/18 18:55 doxycycline Allergy Severe 'BUMPS' Verified 01/08/18 18:55 egg Allergy Severe Hives Verified 01/08/18 18:55 Fish Containing Products Allergy Severe SWELLING Verified 01/08/18 18:55 haloperidol Allergy Severe ITCHING Verified 01/08/18 18:55 AND SWELLING iodine Allergy Severe THROAT Verified 01/08/18 18:55 SWELLS iohexol Allergy Severe ITCHING Verified 01/08/18 18:55 AND SWELLING penicillin G Allergy Severe THROAT Verified 01/08/18 18:55 SWELLS potassium iodide Allergy Severe THROAT Verified 01/08/18 18:55 SWELLS povidone-iodine Allergy Severe THROAT Verified 01/08/18 18:55 SWELLS sodium iodide Allergy Severe THROAT Verified 01/08/18 18:55 SWELLS sodium iodide Allergy Severe THROAT Verified 01/08/18 18:55 SWELLS nitrofurantoin Allergy Mild Hives Verified 01/08/18 18:55 Review of Systems ROS: all other systems reviewed are negative [facility] Medical History Medical History Anxiety (Acute) Asthma (Acute) CAD (coronary artery disease) (Acute) Chest pain (Acute) Diabetes (Acute) GERD (gastroesophageal reflux disease) (Acute) HTN (hypertension) (Acute) History of hysterectomy (Acute) Non-STEMI (non-ST elevated myocardial infarction) (Acute) Surgical History Surgical History History of lumpectomy of right breast (Acute) Hx of appendectomy (Acute) Hx of cholecystectomy (Acute) Stented coronary artery (Acute) Family History Family History Other No significant family history Social History Social History Substance History: No History of Abuse Second Hand Smoke Exposure: No Smoking Status: Never smoker How Often Do You Have a Drink Containing Alcohol: Never Recent Travel in [place] within the Last 8 Weeks: No Recent Out of Country Travel within the Last 8 Weeks: No Exam Narrative Exam Narrative: GENERAL: Well-nourished, well-developed patient. In no acute distress no respiratory distress resting comfortably on her left side on her cell phone. SKIN: Focused skin assessment warm/dry. HEAD: Normocephalic. EYES: No scleral icterus. No injection or drainage. NECK: Supple, trachea midline. No JVD or lymphadenopathy. CARDIOVASCULAR: increased Regular rate and rhythm without murmurs, gallops, or rubs. RESPIRATORY: Breath sounds equal bilaterally. No accessory muscle use. GASTROINTESTINAL: Abdomen soft, diffusely mildly tender to direct palpation without guarding or rebound, nondistended. MUSCULOSKELETAL: No cyanosis, or edema. BACK: Nontender without obvious deformity. No CVA tenderness. Course Initial Documented Vital Signs Temperature 100.3 F H 01/08/18 18:53 Pulse Rate 127 H 01/08/18 18:53 Respiratory Rate 16 01/08/18 18:53 Blood Pressure 186/106 H 01/08/18 18:53 Pulse Oximetry 98 01/08/18 18:53 Last Documented Vital Signs Temperature 98.3 F 01/09/18 01:06 Pulse Rate 90 01/09/18 01:15 Respiratory Rate 18 01/09/18 01:15 Blood Pressure 179/86 H 01/09/18 01:15 Pulse Oximetry 96 01/09/18 01:15 Medical Decision Making MDM Narrative Medical decision making narrative: 67-year-old female with multiple medical problems including previous myocardial infarction hypertension and diabetes presents to the emergency department for 9 hours of nausea vomiting diarrhea and generalized abdominal pain without fever or chills no hematemesis coffee- ground emesis melena hematochezia. No other family members with similar symptoms however reportedly exposed to a friend whose family has a similar type symptom complaint. IV access obtained specimens collected and sent for resulting patient given bolus of normal saline along with Zofran 4 mg IV for nausea and vomiting. At 1:10 AM patient reexamined states she feels well taking oral hydration well has had diarrhea; no melena or hematochezia; stool specimen collected for C. difficile abdomen reexamined soft nontender no guarding or rebound no tenderness to deep palpation CT abdomen pelvis per reading radiologist remarkable for chronic previous existing postoperative changes also identified per reading radiologist nonspecific "mild induration of the mesenteric root". Lactic acid ordered due to CT imaging report patient's complaint of vomiting and diarrhea and initially mild abdominal pain and then identified to have elevated lactic acid of 3.8 which is concerning patient does not have exam concerned consistent with bowel ischemia nontender to deep palpation no guarding no rebound denies pain states she feels well however in view of patient 's underlying medical condition history hypertension dyslipidemia myocardial infarction will recommend observation admission for ongoing fluid hydration and to be reassessed should she have recurrent pain. Patient case discussed with medicine service. Patient borderline for sepsis admission due to white count 15 ,600 lactic acid 3.8 and initial heart rate of 127 and temperature 100.3 subsequently heart rate is 90 patient is afebrile respirations 18 and unlabored patient informed of plan for observation admission stool collection is pending blood cultures ordered patient case discussed with medicine service Dr. More who will accept patient for observation. Medical Screen Exam Complete: Yes Emergency Medical Condition: Yes Differential Diagnosis Differential Diagnosis: Gastroenteritis, foodborne illness, colitis, electrolyte disturbance, partial bowel obstruction, bowel ischemia Medical Records Medical records reviewed: Yes I reviewed the patient's medical records. Lab Data Lab results reviewed: Yes I reviewed the patient's lab results. Result diagrams: 01/08/18 21:35 01/08/18 21:35 Lab Results 01/08/18 01/08/18 01/08/18 Range/Units 21:35 21:35 22:08 CBC w Diff Auto diff final WBC 15.6 H (4.0-11.0) th/mm3 RBC 5.48 H (4.00-5.30) mil/mm3 Hgb 15.3 (11.6-15.3) gm/dL Hct 46.9 H (35.0-46.0) % MCV 85.7 (80.0-100.0) fL MCH 28.0 (27.0-34.0) pg MCHC 32.6 (32.0-36.0) % RDW 14.7 (11.6-17.2) % Plt Count 544 H (150-450) th/mm3 MPV 7.9 (7.0-11.0) fL Neut % (Auto) 87.6 H (16.0-70.0) % Lymph % (Auto) 8.6 L (9.0-44.0) % [place] % (Auto) 2.3 (0.0-8.0) % Eos % (Auto) 0.2 (0.0-4.0) % Baso % (Auto) 1.3 (0.0-2.0) % Neut # (Auto) 13.7 H (1.8-7.7) th/mm3 Lymph # (Auto) 1.3 (1.0-4.8) th/mm3 [place] # (Auto) 0.4 (0.0-0.9) th/mm3 Eos # (Auto) 0.0 (0.0-0.4) th/mm3 Baso # (Auto) 0.2 (0.0-0.2) th/mm3 WBC Differential . Differential Comment . Sodium 134 L (136-145) meq/L Potassium 4.2 (3.5-5.1) meq/L Chloride 98 (98-107) meq/L Carbon Dioxide 25.1 (21.0-32.0) meq/L Anion Gap 11 (5-15) meq/L BUN 13 (7-18) mg/dL Creatinine 0.79 (0.50-1.00) mg/dL Estimated GFR 73 L (>89) mL/min Random Glucose 270 H (74-106) mg/dL Lactic Acid (0.4-2.0) mmol/L Calcium 8.8 (8.5-10.1) mg/dL Magnesium 1.8 (1.5-2.5) mg/dL Total Bilirubin 0.8 (0.2-1.0) mg/dL AST 20 (15-37) U/L ALT 21 (10-53) U/L Alkaline Phosphatase 180 H (45-117) U/L Total Protein 9.0 H (6.4-8.2) g/dL Albumin 3.3 L (3.4-5.0) g/dL Lipase 65 L (73-393) U/L Urine Color Yellow (Yellw/Straw) Urine Clarity Clear (Clear) Urine pH 6.5 (5.0-8.5) Ur Specific [place] 1.020 (1.002-1.035) Urine Protein 100 H (Neg-Trace) mg/dL Urine Glucose (UA) 250 H (Negative) mg/dL Urine Ketones 15 H (Negative) mg/dL Urine Occult Blood Small H (Negative) Urine Nitrate Negative (Negative) Urine Bilirubin Negative (Negative) Urine Urobilinogen 1.0 (Less than 2) mg/dL Ur Leukocyte Esterase Negative (Negative) Urine RBC 4-15 H (0-3) /hpf Urine WBC 0-5 (0-5) /hpf Ur Squamous Epith Cells 6-10 H (0-5) /hpf Urine Bacteria Few H (None) /hpf Micro UA Comment Culture not ind Ur Microscopic Review Microscopic reviewed Urine Culture Comments Culture not ind 01/09/18 Range/Units 01:00 CBC w Diff WBC (4.0-11.0) th/mm3 RBC (4.00-5.30) mil/mm3 Hgb (11.6-15.3) gm/dL Hct (35.0-46.0) % MCV (80.0-100.0) fL MCH (27.0-34.0) pg MCHC (32.0-36.0) % RDW (11.6-17.2) % Plt Count (150-450) th/mm3 MPV (7.0-11.0) fL Neut % (Auto) (16.0-70.0) % Lymph % (Auto) (9.0-44.0) % [place] % (Auto) (0.0-8.0) % Eos % (Auto) (0.0-4.0) % Baso % (Auto) (0.0-2.0) % Neut # (Auto) (1.8-7.7) th/mm3 Lymph # (Auto) (1.0-4.8) th/mm3 [place] # (Auto) (0.0-0.9) th/mm3 Eos # (Auto) (0.0-0.4) th/mm3 Baso # (Auto) (0.0-0.2) th/mm3 WBC Differential Differential Comment Sodium (136-145) meq/L Potassium (3.5-5.1) meq/L Chloride (98-107) meq/L Carbon Dioxide (21.0-32.0) meq/L Anion Gap (5-15) meq/L BUN (7-18) mg/dL Creatinine (0.50-1.00) mg/dL Estimated GFR (>89) mL/min Random Glucose (74-106) mg/dL Lactic Acid 3.8 H (0.4-2.0) mmol/L Calcium (8.5-10.1) mg/dL Magnesium (1.5-2.5) mg/dL Total Bilirubin (0.2-1.0) mg/dL AST (15-37) U/L ALT (10-53) U/L Alkaline Phosphatase (45-117) U/L Total Protein (6.4-8.2) g/dL Albumin (3.4-5.0) g/dL Lipase (73-393) U/L Urine Color (Yellw/Straw) Urine Clarity (Clear) Urine pH (5.0-8.5) Ur Specific [place] (1.002-1.035) Urine Protein (Neg-Trace) mg/dL Urine Glucose (UA) (Negative) mg/dL Urine Ketones (Negative) mg/dL Urine Occult Blood (Negative) Urine Nitrate (Negative) Urine Bilirubin (Negative) Urine Urobilinogen (Less than 2) mg/dL Ur Leukocyte Esterase (Negative) Urine RBC (0-3) /hpf Urine WBC (0-5) /hpf Ur Squamous Epith Cells (0-5) /hpf Urine Bacteria (None) /hpf Micro UA Comment Ur Microscopic Review Urine Culture Comments Imaging Data Radiologist's impression: Abdomen/Pelvis CT 01/08/18 22:19 CONCLUSION: 1. Suspect previous posttraumatic changes and postoperative changes in the left upper quadrant 2. Mild nonspecific induration of the mesenteric root Discharge Plan Discharge Disposition Patient Disposition: 01 Discharge Home Discharge Condition Condition: Stable Discharge Details Diagnosis: Gastroenteritis, Elevated lactic acid level Physicians Team ED Provider: Caroline Chapman Primary Care Provider: Rolando Addison Rxs /Orders / Referrals /Forms Prescriptions: No Action metformin 500 mg Tablet 500 mg PO BID RF: 0 pravastatin 40 mg Tablet 40 mg PO DAILY RF: 0 metoprolol succinate 50 mg Tablet Extended Release 24 Hr 50 mg PO DAILY RF: 0 amlodipine 5 mg Tablet 5 mg PO DAILY RF: 0 pantoprazole [Protonix] 20 mg Tablet,Delayed Release (Dr/Ec) 20 mg PO DAILY RF: 0 captopril 25 mg Tablet 25 mg PO BID RF: 0 aspirin 81 mg Tablet,Chewable 81 mg PO DAILY RF: 0 albuterol sulfate 90 mcg/actuation Hfa Aerosol Inhaler 2 puff INHALATION Q4-6H PRN (Reason: shortness of breath) RF: 0 ticagrelor [Brilinta] 90 mg Tablet 90 mg PO BID RF: 0 chlordiazepoxide HCl 25 mg capsule 25 mg PO Q6-8H PRN (Reason: anxiety) Qty: 14 RF: 0 Discharge Interventions Interventions: Vital Signs Last Done: 01/09/18 01:15 Status ED Status: With Doctor
[2018-01-08 21:49] LABS: Baso # (Auto) 0.2 th/mm3 (0.0-0.2); Baso % (Auto) 1.3 % (0.0-2.0); Eos % (Auto) 0.2 % (0.0-4.0); Hematocrit 46.9 % (35.0-46.0); Hemoglobin 15.3 gm/dL (11.6-15.3); Lymph # (Auto) 1.3 th/mm3 (1.0-4.8); Lymph % (Auto) 8.6 % (9.0-44.0); Mean Corpuscular HGB Conc 32.6 % (32.0-36.0); Mean Corpuscular Volume 85.7 fL (80.0-100.0); Mean Platelet Volume 7.9 fL (7.0-11.0); Mono # (Auto) 0.4 th/mm3 (0.0-0.9); Mono % (Auto) 2.3 % (0.0-8.0); Neut # (Auto) 13.7 th/mm3 (1.8-7.7); Neut % (Auto) 87.6 % (16.0-70.0); Platelet Count 544 th/mm3 (150-450); Red Blood Count 5.48 mil/mm3 (4.00-5.30); Red Cell Distribution Width 14.7 % (11.6-17.2); White Blood Count 15.6 th/mm3 (4.0-11.0)
[2018-01-08] MEDS ORDERED: Sodium Chlor 0.9% Inj 500 ML IV.SIG SCH (22:00)
[2018-01-08 22:02] LABS: Chloride 98 meq/L (98-107); Potassium 4.2 meq/L (3.5-5.1); Sodium 134 meq/L (136-145)
[2018-01-08 22:05] LABS: Calcium 8.8 mg/dL (8.5-10.1)
[2018-01-08 22:06] LABS: Albumin 3.3 g/dL (3.4-5.0); Anion Gap 11 meq/L (5-15); Blood Urea Nitrogen 13 mg/dL (7-18); Carbon Dioxide 25.1 meq/L (21.0-32.0); Glucose,Random 270 mg/dL (74-106); Lipase 65 U/L (73-393); Magnesium 1.8 mg/dL (1.5-2.5)
[2018-01-08 22:08] LABS: Alanine Aminotransferase 21 U/L (10-53)
[2018-01-08 22:09] LABS: Aspartate Aminotransferase 20 U/L (15-37); Glomerular Filtration Rate 73 mL/min (>89)
[2018-01-08 22:11] LABS: Alkaline Phosphatase 180 U/L (45-117)
[2018-01-08 22:16] LABS: Bilirubin,Urine Negative (Negative); Clarity,Urine Clear (Clear); Color,Urine Yellow (Yellw/Straw); Glucose,Urine (UA) 250 mg/dL (Negative); Leukocyte Esterase,Urine Negative (Negative); Nitrite,Urine Negative (Negative); PH,Urine 6.5 (5.0-8.5)
[2018-01-08] MEDS ORDERED: Acetaminophen 325 MG Tablet PO ONE (22:20)
[2018-01-08 22:26] LABS: Bacteria,Urine Few /hpf; WBC,Urine 0-5 /hpf (0-5)
--- NOTE | 2018-01-08 23:38 | CT ---
EXAM DATE: 01/08/2018 11:24 PM EST AGE/SEX: 67 years / Female INDICATIONS: Abdominal pain. Nausea. Vomiting. CLINICAL DATA: This is the patient's initial encounter. Patient reports that signs and symptoms have been present for 2 days and indicates a pain score of 5/10. MEDICAL/SURGICAL HISTORY: Diabetes. Gastroesophageal reflux disease. Hypertension. Appendecto my. Cholecystectomy. RADIATION DOSE: 24.38 CTDI (mGy) COMPARISON: No prior exams available for comparison. TECHNIQUE: Multiple contiguous axial images were obtained through the abdomen. Images were obtained using multiple row detector helical technique. Using automated exposure control and adjustment of the mA and/or kV according to patient size, radiation dose was kept as low as reasonably achievable to o btain optimal diagnostic quality images. DICOM format image data is available electronically for rev iew and comparison. FINDINGS: Lower Lungs: Mild scarring or atelectasis in the left lung base. Slight elevation left diaphragm. Liver: Mild hepatic steatosis with areas of focal sparing, most conspicuously adjacent to the gallbla dder fossa. No suspicious mass. No biliary ductal dilatation. Spleen: Likely surgically absent with small splenules in the left upper quadrant Pancreas: Unremarkable without mass or calcification. Kidneys: Normal in size and shape. No evidence of mass or hydronephrosis. Adrenal Glands: Unremarkable. Aorta: The aorta and proximal iliac vessels are grossly unremarkable without aneurysmal dilation. Bowel/Mesentery: Mild nonspecific indurative changes in the mesenteric root. Ileocolic anastomosis. No abnormally dilated bowel loops. Abdominal Wall: Intact. Retroperitoneum: No evidence of adenopathy in the retrocrural, para-aortic, or deep pelvic regions. Bladder: Contours are smooth. Reproductive Organs: Uterus is surgically absent. No evidence of pelvic mass or free fluid. Inguinal: The inguinal region is unremarkable without evidence of adenopathy. Bony Structures: Unremarkable. CONCLUSION: 1. Suspect previous posttraumatic changes and postoperative changes in the left upper quadrant 2. Mild nonspecific induration of the mesenteric root Electronically signed by: Mateus Quintana MD 01/08/2018 11:37 PM EST
[2018-01-09] MEDS ORDERED: Sod Chloride 0.9% Inj 1,000 ML IV.SIG SCH ×2 (01:00→02:00)
[2018-01-09] MEDS ORDERED: Dextrose 50% in Water 50 ML Vial IV.PUSH PRN (01:54)
[2018-01-09] MEDS ORDERED: Bisacodyl 10 MG Supp RECTAL PRN (01:55)
[2018-01-09] MEDS ORDERED: Sodium Chloride 0.9% 2 ML Flush PRN IV.FLUSH (02:03)
[2018-01-09] MEDS: Sod Chloride 0.9% Inj 1,000 ML IV.CONT SCH ×2 (05:51→16:31)
[2018-01-09] MEDS: Sodium Chloride 0.9% 2 ML Flush BID IV.FLUSH SCH ×2 (08:16→22:11)
[2018-01-09] MEDS: Insulin NovoLOG Aspart Correctional Sugar Inj SQ SCH ×4 (08:25→22:21)
--- NOTE | 2018-01-09 11:37 | P.HP ---
History of Present Illness Service: Hospitalist. Primary Care Physician: Rolando Addison MD Chief Complaint: abdominal pain History of Present Illness: Ms. Rodriguez is a 67-year-old female with a history of hypertension, CAD, diabetes mellitus and very hard of hearing who presented to the emergency department on 01/08/2018 due to nausea vomiting and abdominal pain. 2 days prior to this admission patient started having cramping pain in her abdomen. Subsequently she started developing nausea and vomiting yesterday. She also started. No blood in the diarrhea. No chest pain, shortness of breath, fever or chills. She denies recent foreign travel or any unusual food consumption. Denies changes in bladder habits. Past medical history: CAD status post stent placement 2 years ago, diabetes mellitus, hyperlipidemia, hypertension Surgical history: Splenectomy, hysterectomy, colectomy partial, cholecystectomy , appendectomy Social history: Patient denies using tobacco or alcohol. Family history: Mother underwent hysterectomy and father had hypertension. Review of Systems All other systems reviewed negative except as stated in HPI [facility] - History History Provided By: Patient - Medical History Medical History: Medical History (Last Reviewed 01/09/18 @ 14:56 by Claribel Cabrales DO) Anxiety Asthma CAD (coronary artery disease) Chest pain Diabetes GERD (gastroesophageal reflux disease) HTN (hypertension) History of hysterectomy Non-STEMI (non-ST elevated myocardial infarction) - Surgical History Surgical History: Surgical History (Last Reviewed 01/09/18 @ 14:56 by Claribel Cabrales DO) History of lumpectomy of right breast Hx of appendectomy Hx of cholecystectomy Stented coronary artery - Family History Family History: Family History (Last Reviewed 01/08/18 @ 21:11 by Caroline Chapman MD) Other No significant family history - Tobacco History Second Hand Smoke Exposure: No Smoking Status: Never smoker - Alcohol History How Often Do You Have a Drink Containing Alcohol: Never - Substance Use History Substance History: No History of Abuse - Travel History Recent Travel in the [place] Within the Last 8 Weeks: No Recent Travel Out of the Country Within the Last 8 Weeks: No - Immunization History Tetanus Immunization: Unsure Medications and Allergies Active Medications: Active Medications Al Hydroxide/Mg Hydroxide (Milk Of Magnesia Liq) 30 ml PO Q12H PRN PRN Reason: Mild Constipation Bisacodyl (Dulcolax Supp) 10 mg RECTAL DAILY PRN PRN Reason: SEVERE CONSITIPATION Dextrose (D50w Vial) 50 ml IV.PUSH UNSCH PRN PRN Reason: PER HYPOGLYCEMIA PROTOCOL Glucagon (Glucagon Inj) 1 mg OTHER PRN PRN PRN Reason: for Hypoglycemia Protocol Sodium Chloride (Ns Inj) 1,000 mls @ 100 mls/hr IV.CONT .Q10H [facility] Last Admin: 01/09/18 05:51 Dose: 100 mls/hr Insulin Aspart (Novolog Insulin Correctional Sugar Inj) 0 unit SQ ACHS [facility]; Protocol Last Admin: 01/09/18 08:25 Dose: 3 unit Lactulose (Lactulose Liq) 30 ml PO DAILY PRN PRN Reason: SEVERE CONSITIPATION Sennosides (Senokot) 17.2 mg PO Q12H PRN PRN Reason: Moderate Constipation Sodium Chloride (Ns Flush) 2 ml IV.FLUSH BID [facility] Last Admin: 01/09/18 08:16 Dose: Not Given Sodium Chloride (Ns Flush) 2 ml IV.FLUSH PRN PRN PRN Reason: FLUSH AFTER USING IV ACCESS Allergies Allergy/AdvReac Type Severity Reaction Status Date / Time ciprofloxacin Allergy Severe HIVES Verified 01/08/18 18:55 doxycycline Allergy Severe 'BUMPS' Verified 01/08/18 18:55 egg Allergy Severe Hives Verified 01/08/18 18:55 Fish Containing Products Allergy Severe SWELLING Verified 01/08/18 18:55 haloperidol Allergy Severe ITCHING Verified 01/08/18 18:55 AND SWELLING iodine Allergy Severe THROAT Verified 01/08/18 18:55 SWELLS iohexol Allergy Severe ITCHING Verified 01/08/18 18:55 AND SWELLING penicillin G Allergy Severe THROAT Verified 01/08/18 18:55 SWELLS potassium iodide Allergy Severe THROAT Verified 01/08/18 18:55 SWELLS povidone-iodine Allergy Severe THROAT Verified 01/08/18 18:55 SWELLS sodium iodide Allergy Severe THROAT Verified 01/08/18 18:55 SWELLS sodium iodide Allergy Severe THROAT Verified 01/08/18 18:55 SWELLS nitrofurantoin Allergy Mild Hives Verified 01/08/18 18:55 Home Medications Medication Instructions Recorded Confirmed Type albuterol sulfate 2 puff INHALATION Q4-6H PRN 12/24/17 01/09/18 History amlodipine 5 mg PO DAILY 12/24/17 01/09/18 History aspirin 81 mg PO DAILY 12/24/17 01/09/18 History captopril 25 mg PO BID 12/24/17 01/09/18 History metformin 500 mg PO BID 12/24/17 01/09/18 History metoprolol succinate 50 mg PO DAILY 12/24/17 01/09/18 History pantoprazole [Protonix] 20 mg PO DAILY 12/24/17 01/09/18 History pravastatin 40 mg PO DAILY 12/24/17 01/09/18 History ticagrelor [Brilinta] 90 mg PO BID 12/24/17 01/09/18 History Exam Vital signs: Vital Signs 01/08/18 18:53 01/08/18 22:10 01/08/18 22:34 Temperature 100.3 F H Pulse Rate 127 H 99 H 97 H Respiratory Rate 16 19 18 Blood Pressure 186/106 H 177/80 H Pulse Oximetry 98 99 96 01/09/18 01:06 01/09/18 01:15 01/09/18 03:05 Temperature 98.3 F Pulse Rate 90 84 Respiratory Rate 18 18 Blood Pressure 179/86 H 156/73 H Pulse Oximetry 96 96 01/09/18 03:10 01/09/18 08:00 Temperature 98.8 F 99.1 F Pulse Rate 84 92 H Respiratory Rate 18 20 Blood Pressure 177/76 H 159/76 H Pulse Oximetry 95 95 Intake & Output 01/08/18 01/09/18 01/09/18 18:59 06:59 18:59 Intake Total 2700 / 2700 Balance 2700 / 2700 Weight 87 kg 87 kg Intake: IV 2500 / 2500 NS Inj 1,000 ML @ 1000 mls/hr 1999 / 1999 IV.SIG BOLUS CAR Rx#:[id number] NS Inj 500 ML @ 1000 mls/hr IV. 500 / 500 SIG BOLUS CAR Rx#:[id number] Oral 200 / 200 Other: # Voids 1 Weight On Admission 87 kg Narrative: GENERAL: This is a well-nourished, well-developed patient, in no apparent distress. Extremely hard of hearing SKIN: No rashes, ecchymoses or lesions. Warm and dry. HEAD: Atraumatic. Normocephalic. No temporal or scalp tenderness. EYES: Pupils equal round and reactive. No injection or drainage. ENT: Nose without bleeding, purulent drainage or septal hematoma. Airway patent. NECK: Trachea midline. No lymphadenopathy. Supple, nontender, no meningeal signs. CARDIOVASCULAR: Regular rate and rhythm without murmurs, gallops, or rubs. No JVD. RESPIRATORY: Clear to auscultation. Breath sounds equal bilaterally. No wheezes , rales, or rhonchi. GASTROINTESTINAL: Abdomen soft, non-tender, nondistended. No guarding. MUSCULOSKELETAL: Extremities without clubbing, cyanosis, or edema. NEUROLOGICAL: Awake and alert. Cranial nerves II through XII intact. No focal neurological deficits. Normal speech. Results - Labs CBC & Chem 7: 01/08/18 21:35 01/08/18 21:35 Labs: Laboratory Results - last 24 hr 01/08/18 01/08/18 01/08/18 21:35 21:35 22:08 CBC w Diff Auto diff final WBC 15.6 H RBC 5.48 H Hgb 15.3 Hct 46.9 H MCV 85.7 MCH 28.0 MCHC 32.6 RDW 14.7 Plt Count 544 H MPV 7.9 Neut % (Auto) 87.6 H Lymph % (Auto) 8.6 L [place] % (Auto) 2.3 Eos % (Auto) 0.2 Baso % (Auto) 1.3 Neut # (Auto) 13.7 H Lymph # (Auto) 1.3 [place] # (Auto) 0.4 Eos # (Auto) 0.0 Baso # (Auto) 0.2 WBC Differential . Differential Comment . Sodium 134 L Potassium 4.2 Chloride 98 Carbon Dioxide 25.1 Anion Gap 11 BUN 13 Creatinine 0.79 Estimated GFR 73 L POC Glucose Random Glucose 270 H Lactic Acid Calcium 8.8 Magnesium 1.8 Total Bilirubin 0.8 AST 20 ALT 21 Alkaline Phosphatase 180 H Total Protein 9.0 H Albumin 3.3 L Lipase 65 L Urine Color Yellow Urine Clarity Clear Urine pH 6.5 Ur Specific [place] 1.020 Urine Protein 100 H Urine Glucose (UA) 250 H Urine Ketones 15 H Urine Occult Blood Small H Urine Nitrate Negative Urine Bilirubin Negative Urine Urobilinogen 1.0 Ur Leukocyte Esterase Negative Urine RBC 4-15 H Urine WBC 0-5 Ur Squamous Epith Cells 6-10 H Urine Bacteria Few H Micro UA Comment Culture not ind Ur Microscopic Review Microscopic reviewed Urine Culture Comments Culture not ind 01/09/18 01/09/18 01/09/18 01:00 03:00 05:50 CBC w Diff WBC RBC Hgb Hct MCV MCH MCHC RDW Plt Count MPV Neut % (Auto) Lymph % (Auto) [place] % (Auto) Eos % (Auto) Baso % (Auto) Neut # (Auto) Lymph # (Auto) [place] # (Auto) Eos # (Auto) Baso # (Auto) WBC Differential Differential Comment Sodium Potassium Chloride Carbon Dioxide Anion Gap BUN Creatinine Estimated GFR POC Glucose Random Glucose Lactic Acid 3.8 H 3.6 H 2.9 H Calcium Magnesium Total Bilirubin AST ALT Alkaline Phosphatase Total Protein Albumin Lipase Urine Color Urine Clarity Urine pH Ur Specific [place] Urine Protein Urine Glucose (UA) Urine Ketones Urine Occult Blood Urine Nitrate Urine Bilirubin Urine Urobilinogen Ur Leukocyte Esterase Urine RBC Urine WBC Ur Squamous Epith Cells Urine Bacteria Micro UA Comment Ur Microscopic Review Urine Culture Comments 01/09/18 01/09/18 08:04 11:10 CBC w Diff WBC RBC Hgb Hct MCV MCH MCHC RDW Plt Count MPV Neut % (Auto) Lymph % (Auto) [place] % (Auto) Eos % (Auto) Baso % (Auto) Neut # (Auto) Lymph # (Auto) [place] # (Auto) Eos # (Auto) Baso # (Auto) WBC Differential Differential Comment Sodium Potassium Chloride Carbon Dioxide Anion Gap BUN Creatinine Estimated GFR POC Glucose 215 H 163 H Random Glucose Lactic Acid Calcium Magnesium Total Bilirubin AST ALT Alkaline Phosphatase Total Protein Albumin Lipase Urine Color Urine Clarity Urine pH Ur Specific [place] Urine Protein Urine Glucose (UA) Urine Ketones Urine Occult Blood Urine Nitrate Urine Bilirubin Urine Urobilinogen Ur Leukocyte Esterase Urine RBC Urine WBC Ur Squamous Epith Cells Urine Bacteria Micro UA Comment Ur Microscopic Review Urine Culture Comments - Imaging Impressions Abdomen/Pelvis CT 01/08/18 22:19 CONCLUSION: 1. Suspect previous posttraumatic changes and postoperative changes in the left upper quadrant 2. Mild nonspecific induration of the mesenteric root Caprini VTE Risk Assessment Caprini VTE Risk Assessment: No/Low Risk (score <= 1) Caprini Risk Assessment Model: Point Value = 1 Point Value = 2 Point Value = 3 Point Value = 5 Age 41-60 Minor surgery BMI > 25 kg/m2 Swollen legs Varicose veins or History of unexplained or recurrent spontaneous Oral contraceptives or hormone replacement Sepsis (< 1 month) Serious lung disease, including pneumonia (< 1 month) Abnormal pulmonary function Acute myocardial infarction Congestive heart failure (< 1 month) History of inflammatory bowel disease Medical patient at bed rest Age 61-74 Arthroscopic surgery Major open surgery (> 45 min) Laparoscopic surgery (> 45 min) Malignancy Confined to bed (> 72 hours) Immobilizing plaster cast Central venous access Age >= 75 History of VTE Family history of VTE Factor V Leiden Prothrombin [id number] Lupus anticoagulant Anticardiolipin antibodies Elevated serum homocysteine Heparin-induced thrombocytopenia Other congenital or acquired thrombophilia Stroke (< 1 month) Elective arthroplasty Hip, pelvis, or leg fracture Acute spinal cord injury (< 1 month) Prophylaxis Regimen: Total Risk Factor Score Risk Level Prophylaxis Regimen 0-1 Low Early ambulation 2 Moderate Order ONE of the following: *Sequential Compression Device (SCD) *Heparin 5000 units SQ BID 3-4 Higher Order ONE of the following medications: *Heparin 5000 units SQ TID *Enoxaparin/Lovenox 40 mg SQ daily (WT < 150 kg, CrCl > 30 mL/min) *Enoxaparin/Lovenox 30 mg SQ daily (WT < 150 kg, CrCl > 10-29 mL/min) *Enoxaparin/Lovenox 30 mg SQ BID (WT < 150 kg, CrCl > 30 mL/min) AND/OR *Sequential Compression Device (SCD) 5 or more Highest Order ONE of the following medications: *Heparin 5000 units SQ TID (Preferred with Epidurals) *Enoxaparin/Lovenox 40 mg SQ daily (WT < 150 kg, CrCl > 30 mL/min) *Enoxaparin/Lovenox 30 mg SQ daily (WT < 150 kg, CrCl > 10-29 mL/min) *Enoxaparin/Lovenox 30 mg SQ BID (WT < 150 kg, CrCl > 30 mL/min) AND *Sequential Compression Device (SCD) Assessment and Plan - Plan Ms. Rodriguez is a pleasant 67-year-old female with a history of CAD, hypertension, hyperlipidemia, diabetes mellitus who presented to the emergency department on 01/08/2018 due to abdominal pain, nausea vomiting. Probable acute viral gastroenteritis Patient is currently doing well. Her nausea vomiting and diarrhea symptoms are improving. Continue normal saline at 100 cc/h. Continue diabetic diet. Leukocytosis likely reactive. Patient's lactic acid level is also coming down today it was 2.9. CAD status post stent placement 2 years ago Hypertension Hyperlipidemia Patient has been on Brilinta as well as aspirin for the last 2 years or more. I discussed with patient and encouraged her to discuss with her power press tender to see if Brilinta can be stopped. Continue amlodipine 5 mg daily, captopril 25 mg p.o. twice daily, metoprolol succinate 50 mg p.o. daily. Continue statin. Diabetes mellitus Continue sliding scale insulin. If needed we will add Levemir. Full code. SCDs.
[2018-01-09] MEDS: Acetaminophen 325 MG Tablet PO PRN (17:40)
[2018-01-10] MEDS: Sod Chloride 0.9% Inj 1,000 ML IV.CONT SCH ×3 (02:28→18:11)
[2018-01-10 08:04] LABS: Baso % (Auto) 0.3 % (0.0-2.0); Eos # (Auto) 0.2 th/mm3 (0.0-0.4); Eos % (Auto) 2.4 % (0.0-4.0); Hemoglobin 12.3 gm/dL (11.6-15.3); Lymph # (Auto) 2.6 th/mm3 (1.0-4.8); Lymph % (Auto) 29.7 % (9.0-44.0); Mean Corpuscular HGB Conc 34.2 % (32.0-36.0); Mean Corpuscular Hemoglobin 28.9 pg (27.0-34.0); Mean Corpuscular Volume 84.6 fL (80.0-100.0); Mean Platelet Volume 8.3 fL (7.0-11.0); Mono # (Auto) 0.9 th/mm3 (0.0-0.9); Mono % (Auto) 10.4 % (0.0-8.0); Neut # (Auto) 5.2 th/mm3 (1.8-7.7); Neut % (Auto) 57.2 % (16.0-70.0); Platelet Count 483 th/mm3 (150-450); Red Blood Count 4.25 mil/mm3 (4.00-5.30); Red Cell Distribution Width 15.3 % (11.6-17.2); White Blood Count 8.9 th/mm3 (4.0-11.0)
--- NOTE | 2018-01-10 08:23 | P.PN ---
Subjective Interval history: Follow-up for gastroenteritis. Patient is currently doing well. No fever or chills. She continues to have 3-4 episodes of diarrhea. However she is able to keep her food down. No nausea or vomiting. Physical Exam Vital signs: Vital Signs 01/09/18 12:00 01/09/18 21:20 01/09/18 23:20 Temperature 98.7 F 97.9 F 97.4 F L Pulse Rate 90 97 H 85 Respiratory Rate 20 22 22 Blood Pressure 156/72 H 167/84 H 154/84 H Pulse Oximetry 95 96 97 01/10/18 02:28 Temperature Pulse Rate Respiratory Rate 18 Blood Pressure Pulse Oximetry Intake & Output 01/09/18 01/10/18 01/10/18 18:59 06:59 18:59 Intake Total 1680 / 1680 1000 / 1000 Output Total 900 / 900 Balance 780 / 780 999 / 999 Weight 87.4 kg Intake: IV 1000 / 1000 1000 / 1000 NS Inj 1,000 ML @ 100 mls/hr IV 1000 / 1000 1000 / 1000 .CONT .Q10H CAR Rx#:[id number] Oral 680 / 680 Output: Urine 900 / 900 Urine/Stool Mix Other: # Voids 3 1 Date of Last Bowel Movement 01/09/18 # Bowel Movements 2 Narrative: GENERAL: Alert, oriented x3, NAD. Very hard of hearing. SKIN: Warm and dry. HEAD: Normocephalic. EYES: No scleral icterus. No injection or drainage. NECK: Supple, trachea midline. No JVD or lymphadenopathy. CARDIOVASCULAR: Regular rate and rhythm without murmurs, gallops, or rubs. RESPIRATORY: Breath sounds equal bilaterally. No accessory muscle use. GASTROINTESTINAL: Abdomen soft, non-tender, nondistended. MUSCULOSKELETAL: No cyanosis, or edema. BACK: Nontender without obvious deformity. No CVA tenderness. Results - Labs CBC & Chem 7: 01/10/18 07:12 01/10/18 07:12 Laboratory Results - last 24 hr 01/09/18 01/09/18 01/09/18 11:10 16:30 22:01 CBC w Diff WBC RBC Hgb Hct MCV MCH MCHC RDW Plt Count MPV Neut % (Auto) Lymph % (Auto) [place] % (Auto) Eos % (Auto) Baso % (Auto) Neut # (Auto) Lymph # (Auto) [place] # (Auto) Eos # (Auto) Baso # (Auto) WBC Differential Differential Comment POC Glucose 163 H 177 H 181 H Stl C.difficile DNA Amp 01/09/18 01/10/18 22:15 07:12 CBC w Diff Auto diff final WBC 8.9 RBC 4.25 Hgb 12.3 D Hct 36.0 MCV 84.6 MCH 28.9 MCHC 34.2 RDW 15.3 Plt Count 483 H MPV 8.3 Neut % (Auto) 57.2 Lymph % (Auto) 29.7 [place] % (Auto) 10.4 H Eos % (Auto) 2.4 Baso % (Auto) 0.3 Neut # (Auto) 5.2 Lymph # (Auto) 2.6 [place] # (Auto) 0.9 Eos # (Auto) 0.2 Baso # (Auto) 0.0 WBC Differential . Differential Comment . POC Glucose Stl C.difficile DNA Amp No result - Imaging Abdomen/Pelvis CT 01/08/18 22:19 CONCLUSION: 1. Suspect previous posttraumatic changes and postoperative changes in the left upper quadrant 2. Mild nonspecific induration of the mesenteric root Assessment and Plan - Plan Ms. Rodriguez is a pleasant 67-year-old female with a history of CAD, hypertension, hyperlipidemia, diabetes mellitus who presented to the emergency department on 01/08/2018 due to abdominal pain, nausea vomiting. Probable acute viral gastroenteritis Patient is currently doing well. Her nausea vomiting and diarrhea symptoms are improving. Continue normal saline at 100 cc/h. Continue diabetic diet. Leukocytosis likely reactive. Patient's lactic acid level is also coming down today it was 2.9. C. difficile PCR shows no result for DNR amplification and Negative for Tox Epid 027. -Will add anti-diarrheal PRN. CAD status post stent placement 2 years ago Hypertension Hyperlipidemia Patient has been on Brilinta as well as aspirin for the last 2 years or more. I discussed with patient and encouraged her to discuss with her developmental writing instructor to see if Brilinta can be stopped. Continue amlodipine 5 mg daily, captopril 25 mg p.o. twice daily, metoprolol succinate 50 mg p.o. daily. Continue statin. Diabetes mellitus Continue sliding scale insulin. If needed we will add Levemir. Full code. SCDs.
[2018-01-10 09:13] LABS: Alanine Aminotransferase 22 U/L (10-53); Alkaline Phosphatase 129 U/L (45-117); Anion Gap 7 meq/L (5-15); Aspartate Aminotransferase 23 U/L (15-37); Blood Urea Nitrogen 6 mg/dL (7-18); Carbon Dioxide 25.2 meq/L (21.0-32.0); Chloride 108 meq/L (98-107); Glomerular Filtration Rate Greater Than 89 mL/min (>89); Glucose,Random 178 mg/dL (74-106); Potassium 3.3 meq/L (3.5-5.1); Sodium 140 meq/L (136-145); Total Protein 6.9 g/dL (6.4-8.2)
[2018-01-10 09:14] LABS: Albumin 2.5 g/dL (3.4-5.0); Calcium 7.8 mg/dL (8.5-10.1)
[2018-01-10] MEDS: Insulin NovoLOG Aspart Correctional Sugar Inj SQ SCH ×4 (09:54→21:33)
[2018-01-10] MEDS: amLODIPine 5 MG Tablet PO SCH (09:55)
[2018-01-10] MEDS: Sodium Chloride 0.9% 2 ML Flush BID IV.FLUSH SCH ×2 (09:56→21:33)
[2018-01-10] MEDS: Pantoprazole Sodium 20 MG DR Tablet PO SCH (09:59)
[2018-01-10] MEDS ORDERED: Diphenoxylate/Atropine 2.5/0.025 MG Tablet PO PRN (11:06)
[2018-01-10] MEDS: Acetaminophen 325 MG Tablet PO PRN (17:52)
[2018-01-11 02:08] VITALS: PULSE 72
[2018-01-11] MEDS: Sod Chloride 0.9% Inj 1,000 ML IV.CONT SCH ×2 (03:18→15:18)
[2018-01-11] MEDS: Insulin NovoLOG Aspart Correctional Sugar Inj SQ SCH ×2 (08:26→12:01)
[2018-01-11] MEDS: Pantoprazole Sodium 20 MG DR Tablet PO SCH (08:27)
[2018-01-11] MEDS: amLODIPine 5 MG Tablet PO SCH (08:27)
[2018-01-11] MEDS: Sodium Chloride 0.9% 2 ML Flush BID IV.FLUSH SCH (08:28)
[2018-01-11 09:40] VITALS: BP 182/77; RESP 18; TEMP 98.6; O2SAT 95
--- NOTE | 2018-01-11 11:49 | P.DS ---
Date of admission: 01/09/18 01:56 Primary care physician: Rolando Addison MD Brief History from admission: Ms. Rodriguez is a 67-year-old female with a history of hypertension, CAD, diabetes mellitus and very hard of hearing who presented to the emergency department on 01/08/2018 due to nausea vomiting and abdominal pain. 2 days prior to this admission patient started having cramping pain in her abdomen. Subsequently she started developing nausea and vomiting yesterday. She also started. No blood in the diarrhea. No chest pain, shortness of breath, fever or chills. She denies recent foreign travel or any unusual food consumption. Denies changes in bladder habits. Past medical history: CAD status post stent placement 2 years ago, diabetes mellitus, hyperlipidemia, hypertension Surgical history: Splenectomy, hysterectomy, colectomy partial, cholecystectomy , appendectomy Social history: Patient denies using tobacco or alcohol. Family history: Mother underwent hysterectomy and father had hypertension. DS: Medications - Discharge Medications Prescriptions: chlordiazepoxide HCl 25 mg PO Q6H PRN #28 cap PRN Reason: anxiety ondansetron [Zofran ODT] 4 mg PO QID PRN #20 tab PRN Reason: Nausea, vomiting DS: Summary Hospital Course: Ms. Rodriguez is a pleasant 67-year-old female with a history of CAD, hypertension, hyperlipidemia, diabetes mellitus who presented to the emergency department on 01/08/2018 due to abdominal pain, nausea vomiting. Probable acute viral gastroenteritis Patient is currently doing well. Her nausea vomiting and diarrhea symptoms are improving. Continue normal saline at 100 cc/h. Continue diabetic diet. Leukocytosis likely reactive. Patient's lactic acid level also improved. C. difficile PCR shows no result for DNR amplification and Negative for Tox Epid 027. -add anti-diarrheal PRN. CAD status post stent placement 2 years ago Hypertension Hyperlipidemia Patient has been on Brilinta as well as aspirin for the last 2 years or more. I discussed with patient and encouraged her to discuss with her lead web application developer to see if Brilinta can be stopped. Continue amlodipine 5 mg daily, captopril 25 mg p.o. twice daily, metoprolol succinate 50 mg p.o. daily. Continue statin. Diabetes mellitus Continue sliding scale insulin. Continue Metformin upon discharge. Full code. SCDs. Overall, patient continued to improve. She was tolerating regular diet well. - Time Spent with Patient Total time spent providing and/or coordinating discharge services: Less than 30 minutes - Quality: VTE Deep Vein Thrombosis/Pulmonary Embolism Present on Admission: No Exam Vital signs: Vital Signs 01/10/18 12:00 01/10/18 16:00 01/10/18 20:00 Temperature 99.4 F 98.6 F 98 F Pulse Rate 92 H 79 76 Respiratory Rate 20 20 20 Blood Pressure 192/90 H 158/81 H 168/80 H Pulse Oximetry 96 97 96 01/11/18 00:00 01/11/18 08:00 Temperature 97.4 F L 98.6 F Pulse Rate 72 72 Respiratory Rate 20 18 Blood Pressure 150/78 H 182/77 H Pulse Oximetry 96 95 Intake & Output 01/10/18 01/11/18 01/11/18 18:59 06:59 18:59 Intake Total 1540 / 1540 1959 Output Total 1949 Balance -410 / -410 1959 Weight 91.1 kg Intake: IV 1000 / 1000 1000 / 1000 NS Inj 1,000 ML @ 100 mls/hr IV 1000 / 1000 1000 / 1000 .CONT .Q10H CAR Rx#:[id number] Oral 540 / 540 960 / 960 Output: Urine 1949 Other: # Voids 2 4 Date of Last Bowel Movement 01/10/18 01/10/18 # Bowel Movements 1 Narrative: GENERAL: Alert, oriented x3, NAD. Very hard of hearing. SKIN: Warm and dry. HEAD: Normocephalic. EYES: No scleral icterus. No injection or drainage. NECK: Supple, trachea midline. No JVD or lymphadenopathy. CARDIOVASCULAR: Regular rate and rhythm without murmurs, gallops, or rubs. RESPIRATORY: Breath sounds equal bilaterally. No accessory muscle use. GASTROINTESTINAL: Abdomen soft, non-tender, nondistended. MUSCULOSKELETAL: No cyanosis, or edema. BACK: Nontender without obvious deformity. No CVA tenderness. Results Procedures completed during hospitalization: None. Labs on day of discharge: Labs from last 24 hours 01/11/18 01/10/18 01/10/18 07:58 21:30 17:16 POC Glucose 166 H 140 H 175 H Stl C.difficile DNA Amp 01/10/18 01/09/18 11:49 22:15 POC Glucose 190 H Stl C.difficile DNA Amp Negative - Impressions ITS Impressions Abdomen/Pelvis CT 01/08/18 22:19 CONCLUSION: 1. Suspect previous posttraumatic changes and postoperative changes in the left upper quadrant 2. Mild nonspecific induration of the mesenteric root Discharge Plan - Discharge Disposition Patient Disposition: 01 Discharge Home - Discharge Condition Condition: Stable - Discharge Order Discharge Orders: Discharge Order (Routine); Ordered 01/11/18 Ordered By: Claribel Cabrales - Discharge Details Anticipated Discharge Date: 01/11/18 - Physicians Team Primary Care Provider: Rolando Addison Attending Provider: Claribel Cabrales
== END 2018-01-11 16:00 | disposition home or self-care (01) ==
LOC: PHED 18:45 → PHEDA 18:45 → PH3 01-09 03:17
PROVIDERS: ADMIT Hospitalist; ATTEND Hospitalist

== ENCOUNTER 2018-04-26 23:34 | Observation (INO) ==
--- NOTE | 2018-04-26 23:51 | ED ---
HPI General Chief Complaint: Chest Pain Stated Complaint: Chest pain/Vomiting Time Seen by Provider: 04/26/18 23:47 Source: patient and family Mode of arrival: ambulatory Limitations: no limitations History of Present Illness HPI narrative: 67-year-old female patient with history of diabetes, hypertension , CAD with stents, presents to the ER today because she started having substernal chest discomfort, nausea, vomited several times this evening. She has been having some coughing, runny nose, throat irritation. She states she has had some subjective fevers. She denies any diarrhea, abdominal pain, or other symptoms. Patient states that she vomited after trying to take [place]- [place]. Modifying Factors: None Associated Signs & Symptoms: Nausea, substernal chest discomfort, vomiting, cold symptoms Risk Factors: None Related Data Home Medications Medication Instructions Recorded Confirmed albuterol sulfate 2 puff INHALATION Q4-6H PRN 12/24/17 04/27/18 amlodipine 5 mg PO DAILY 12/24/17 04/27/18 aspirin 81 mg PO DAILY 12/24/17 04/27/18 captopril 25 mg PO BID 12/24/17 04/27/18 metformin 500 mg PO BID 12/24/17 04/27/18 metoprolol succinate 50 mg PO DAILY 12/24/17 04/27/18 pantoprazole [Protonix] 20 mg PO DAILY 12/24/17 04/27/18 pravastatin 40 mg PO DAILY 12/24/17 04/27/18 ticagrelor [Brilinta] 90 mg PO BID 12/24/17 04/27/18 Previous Rx's Medication Instructions Recorded chlordiazepoxide HCl 25 mg PO Q6H PRN #28 cap 01/11/18 ondansetron [Zofran ODT] 4 mg PO QID PRN #20 tab 01/11/18 Allergies Allergy/AdvReac Type Severity Reaction Status Date / Time ciprofloxacin Allergy Severe HIVES Verified 04/26/18 23:52 doxycycline Allergy Severe 'BUMPS' Verified 04/26/18 23:52 egg Allergy Severe Hives Verified 04/26/18 23:52 Fish Containing Products Allergy Severe SWELLING Verified 04/26/18 23:52 haloperidol Allergy Severe ITCHING Verified 04/26/18 23:52 AND SWELLING iodine Allergy Severe THROAT Verified 04/26/18 23:52 SWELLS iohexol Allergy Severe ITCHING Verified 04/26/18 23:52 AND SWELLING penicillin G Allergy Severe THROAT Verified 04/26/18 23:52 SWELLS potassium iodide Allergy Severe THROAT Verified 04/26/18 23:52 SWELLS povidone-iodine Allergy Severe THROAT Verified 04/26/18 23:52 SWELLS sodium iodide Allergy Severe THROAT Verified 04/26/18 23:52 SWELLS sodium iodide Allergy Severe THROAT Verified 04/26/18 23:52 SWELLS nitrofurantoin Allergy Mild Hives Verified 04/26/18 23:52 Review of Systems ROS: all other systems reviewed are negative [facility] History History Provided By: Patient Medical History Medical History Anxiety (Acute) Asthma (Acute) CAD (coronary artery disease) (Acute) Chest pain (Acute) Diabetes (Acute) GERD (gastroesophageal reflux disease) (Acute) HTN (hypertension) (Acute) History of hysterectomy (Acute) Non-STEMI (non-ST elevated myocardial infarction) (Acute) Surgical History Surgical History History of lumpectomy of right breast (Acute) Hx of appendectomy (Acute) Hx of cholecystectomy (Acute) Stented coronary artery (Acute) Social History Social History Substance History: No History of Abuse Second Hand Smoke Exposure: No Smoking Status: Never smoker How Often Do You Have a Drink Containing Alcohol: Never Recent Travel in [facility] within the Last 8 Weeks: No Exam Narrative Exam Narrative: GENERAL: Well-developed elderly female patient currently in mild distress. Awake and oriented x3. She is mildly hard of hearing. SKIN: Focused skin assessment warm/dry. HEAD: Atraumatic. Normocephalic. EYES: Pupils equal and round. No scleral icterus. No injection or drainage. ENT: No nasal bleeding or discharge. Mucous membranes pink and moist. NECK: Trachea midline. No JVD. Supple. CARDIOVASCULAR: Regular rate and rhythm. No murmur appreciated. RESPIRATORY: No accessory muscle use. Clear to auscultation. Breath sounds equal bilaterally. GASTROINTESTINAL: Abdomen soft, non-tender, nondistended. Hepatic and splenic margins not palpable. MUSCULOSKELETAL: No obvious deformities. No clubbing. No cyanosis. No edema. NEUROLOGICAL: Awake and alert. No obvious cranial nerve deficits. Motor grossly within normal limits. Normal speech. PSYCHIATRIC: Anxious mood and affect; insight and judgment normal. Course Initial Documented Vital Signs Temperature 97.4 F L 04/26/18 23:40 Pulse Rate 78 04/26/18 23:40 Respiratory Rate 20 04/26/18 23:40 Blood Pressure 202/85 H 04/26/18 23:40 Pulse Oximetry 93 L 04/26/18 23:40 Last Documented Vital Signs Temperature 97.4 F L 04/26/18 23:40 Pulse Rate 82 04/27/18 01:22 Respiratory Rate 20 04/27/18 01:22 Blood Pressure 196/92 H 04/27/18 01:22 Pulse Oximetry 96 04/27/18 01:22 Medical Decision Making MDM Narrative Medical decision making narrative: Abdomen is fairly benign I did not suspect an acute intra-abdominal process. She appears mildly anxious and she was given a small dose of Ativan. Blood pressure was fairly elevated and she was given aspirin, nitroglycerin, and metoprolol in the ER. Lab work was otherwise fairly unremarkable and troponins were negative. Chest x-ray did not show any signs of acute pulmonary processes. Considering her cardiac history, my plan would be to admit her for further evaluation of her chest pain. Case is discussed with PA for Dr. Macedo for admission. Medical Screen Exam Complete: Yes Emergency Medical Condition: Yes Differential Diagnosis Differential Diagnosis: Viral syndrome versus influenza versus pneumonia versus ACS versus anxiety attack Lab Data Lab results reviewed: Yes I reviewed the patient's lab results. Result diagrams: 04/26/18 23:45 04/26/18 23:45 Lab Results 04/26/18 04/26/18 Range/Units 23:45 23:45 CBC w Diff Auto diff final WBC 10.5 (4.0-11.0) th/mm3 RBC 5.13 (4.00-5.30) mil/mm3 Hgb 13.9 (11.6-15.3) gm/dL Hct 44.4 (35.0-46.0) % MCV 86.6 (80.0-100.0) fL MCH 27.2 (27.0-34.0) pg MCHC 31.4 L (32.0-36.0) % RDW 14.9 (11.6-17.2) % Plt Count 622 H (150-450) th/mm3 MPV 8.1 (7.0-11.0) fL Neut % (Auto) 45.7 (16.0-70.0) % Lymph % (Auto) 44.0 (9.0-44.0) % Darke % (Auto) 7.2 (0.0-8.0) % Eos % (Auto) 2.5 (0.0-4.0) % Baso % (Auto) 0.6 (0.0-2.0) % Neut # (Auto) 4.7 (1.8-7.7) th/mm3 Lymph # (Auto) 4.6 (1.0-4.8) th/mm3 Darke # (Auto) 0.8 (0.0-0.9) th/mm3 Eos # (Auto) 0.3 (0.0-0.4) th/mm3 Baso # (Auto) 0.1 (0.0-0.2) th/mm3 WBC Differential . Differential Comment . Sodium 137 (136-145) meq/L Potassium 4.7 (3.5-5.1) meq/L Chloride 101 (98-107) meq/L Carbon Dioxide 28.6 (21.0-32.0) meq/L Anion Gap 7 (5-15) meq/L BUN 12 (7-18) mg/dL Creatinine 0.67 (0.50-1.00) mg/dL Estimated GFR 88 L (>89) mL/min Random Glucose 306 H (74-106) mg/dL Calcium 9.3 (8.5-10.1) mg/dL Total Bilirubin 0.4 (0.2-1.0) mg/dL AST 37 (15-37) U/L ALT 22 (10-53) U/L Alkaline Phosphatase 159 H (45-117) U/L Troponin I Less than 0.02 L (0.02-0.05) ng/mL Total Protein 8.7 H (6.4-8.2) g/dL Albumin 3.2 L (3.4-5.0) g/dL Lipase 193 (73-393) U/L Imaging Data Attestation: I personally reviewed and interpreted this imaging study as follows : Radiologist's impression: Chest X-Ray 04/26/18 23:47 CONCLUSION: Cardiomegaly. Clear lungs. ECG Data Attestation: I personally reviewed and interpreted this ECG as follows: Interpretation: normal sinus rhythm at a rate of 79 bpm.EKG shows a LVH criteria. T wave inversion in 3. No signs of acute ST elevations. Discharge Plan Discharge Disposition Patient Disposition: ED Admit(ED Internal Use Only) Discharge Condition Condition: Stable Discharge Order Discharge Orders: ED Use Only Admit Order (Routine); Ordered 04/27/18 Ordered By: Reese Thompson Discharge Details Anticipated Discharge Date: 04/27/18 Diagnosis: Chest pain Physicians Team ED Provider: Reese Thompson Primary Care Provider: Rolando Addison Rxs /Orders / Referrals /Forms Prescriptions: No Action ondansetron [Zofran ODT] 4 mg Tablet,Disintegrating 4 mg PO QID PRN (Reason: Nausea, vomiting) Qty: 20 RF: 0 chlordiazepoxide HCl 25 mg capsule 25 mg PO Q6H PRN (Reason: anxiety) Qty: 28 RF: 0 metformin 500 mg Tablet 500 mg PO BID RF: 0 pravastatin 40 mg Tablet 40 mg PO DAILY RF: 0 metoprolol succinate 50 mg Tablet Extended Release 24 Hr 50 mg PO DAILY RF: 0 amlodipine 5 mg Tablet 5 mg PO DAILY RF: 0 pantoprazole [Protonix] 20 mg Tablet,Delayed Release (Dr/Ec) 20 mg PO DAILY RF: 0 captopril 25 mg Tablet 25 mg PO BID RF: 0 aspirin 81 mg Tablet,Chewable 81 mg PO DAILY RF: 0 albuterol sulfate 90 mcg/actuation Hfa Aerosol Inhaler 2 puff INHALATION Q4-6H PRN (Reason: shortness of breath) RF: 0 ticagrelor [Brilinta] 90 mg Tablet 90 mg PO BID RF: 0 Discharge Instructions Patient Printed Instructions: Chest Pain (ED) Status ED Status: With Doctor
--- NOTE | 2018-04-27 00:03 | XR ---
EXAM DATE: 04/26/2018 11:58 PM EST AGE/SEX: 67 years / Female INDICATIONS: Chest pain and vomiting. CLINICAL DATA: This is the patient's initial encounter. Patient reports that signs and symptoms have been present for 1 day and indicates a pain score of 5/10. MEDICAL/SURGICAL HISTORY: Diabetes mellitus type II. Hypertension. Gastroesophageal reflux di sease. Splenectomy. Hysterectomy. Appendectomy. Cholecystectomy. Colon. Right breast. COMPARISON: [facility], CHEST 1V SINGLE AP, 12/24/2017. . FINDINGS: A single AP view of the chest demonstrates the lungs to be symmetrically aerated without evidence of mass, infiltrate or effusion. Mild cardiomegaly. Coronary stent overlies the left heart border. No pu lmonary vascular engorgement. Osseous structures are intact. CONCLUSION: Cardiomegaly. Clear lungs. Electronically signed by: Arnaldo Estes MD Board Certified Radiologist 04/27/2018 12:02 AM EST
[2018-04-27 00:09] LABS: Baso # (Auto) 0.1 th/mm3 (0.0-0.2); Baso % (Auto) 0.6 % (0.0-2.0); Eos # (Auto) 0.3 th/mm3 (0.0-0.4); Eos % (Auto) 2.5 % (0.0-4.0); Hematocrit 44.4 % (35.0-46.0); Hemoglobin 13.9 gm/dL (11.6-15.3); Lymph # (Auto) 4.6 th/mm3 (1.0-4.8); Mean Corpuscular HGB Conc 31.4 % (32.0-36.0); Mean Corpuscular Hemoglobin 27.2 pg (27.0-34.0); Mean Corpuscular Volume 86.6 fL (80.0-100.0); Mean Platelet Volume 8.1 fL (7.0-11.0); Mono # (Auto) 0.8 th/mm3 (0.0-0.9); Mono % (Auto) 7.2 % (0.0-8.0); Neut # (Auto) 4.7 th/mm3 (1.8-7.7); Neut % (Auto) 45.7 % (16.0-70.0); Platelet Count 622 th/mm3 (150-450); Red Blood Count 5.13 mil/mm3 (4.00-5.30); Red Cell Distribution Width 14.9 % (11.6-17.2); White Blood Count 10.5 th/mm3 (4.0-11.0)
[2018-04-27 00:18] LABS: Chloride 101 meq/L (98-107); Potassium 4.7 meq/L (3.5-5.1); Sodium 137 meq/L (136-145)
[2018-04-27 00:23] LABS: Albumin 3.2 g/dL (3.4-5.0); Anion Gap 7 meq/L (5-15); Calcium 9.3 mg/dL (8.5-10.1); Carbon Dioxide 28.6 meq/L (21.0-32.0); Glucose,Random 306 mg/dL (74-106); Lipase 193 U/L (73-393)
[2018-04-27 00:24] LABS: Blood Urea Nitrogen 12 mg/dL (7-18)
[2018-04-27 00:26] LABS: Alanine Aminotransferase 22 U/L (10-53); Aspartate Aminotransferase 37 U/L (15-37); Glomerular Filtration Rate 88 mL/min (>89)
[2018-04-27 00:28] LABS: Total Protein 8.7 g/dL (6.4-8.2)
[2018-04-27 00:29] LABS: Alkaline Phosphatase 159 U/L (45-117)
[2018-04-27] MEDS ORDERED: Aspirin 325 MG Tablet PO ONE (00:41)
[2018-04-27] MEDS ORDERED: Metoprolol Tartrate 50 MG Tablet PO ONE (00:41)
[2018-04-27] MEDS ORDERED: Morphine Inj 4 MG/ML Vial IV.PUSH PRN (02:17)
[2018-04-27] MEDS ORDERED: Acetaminophen 500 MG Tablet PO PRN (02:17)
[2018-04-27] MEDS ORDERED: Temazepam 15 MG Capsule PO PRN (02:17)
[2018-04-27] MEDS ORDERED: Dextrose 50% in Water 50 ML Vial IV.PUSH PRN (02:28)
[2018-04-27] MEDS: Insulin NovoLOG Aspart Correctional Sugar Inj SQ SCH ×2 (03:11→09:24)
[2018-04-27] MEDS: Heparin - SQ 10,000 UNITS/ML Vial SQ SCH ×2 (03:13→09:45)
[2018-04-27 08:50] LABS: Creatine Kinase 36 U/L (26-192)
[2018-04-27] MEDS ORDERED: Aspirin 325 MG Tablet PO SCH (09:00)
[2018-04-27] MEDS ORDERED: amLODIPine 5 MG Tablet PO SCH (09:00)
[2018-04-27] MEDS ORDERED: Pantoprazole Sodium 20 MG DR Tablet PO SCH (09:00)
--- NOTE | 2018-04-27 09:56 | P.HPIM ---
History of Present Illness Primary Care Physician: Rolando Addison MD Chief Complaint: Chest pain History of Present Illness: This is a 67-year-old female patient with a known medical history of diabetes, hypertension, CAD with cardiac stent placement and hyperlipidemia presented to the ED with complaints of chest pain with associated nausea and vomiting. Patient does admit to an upper respiratory infection with coughing runny nose and throat irritation and subjective fevers at home. Patient denies taking any antibiotics recently or any over-the- counter cough medications. Patient states that the chest pain happened after coughing so much she complains of back pain as well. Her throat is sore, with white exudate present. She states she is been coughing up green/yellow phlegm. Chest pain is reproducible on exam. ACS has been ruled out with serial EKGs and serial troponins. She follows closely with her design drafter, Dr. Engel , last seen 2 months ago with no new changes to her medications. At that time an echocardiogram was also done which per patient report was unremarkable. Patient denies any recent changes to her medications. I have offered the patient his stress test although patient refuses. She wants to follow with her heart doctor and relates the pain probably to an upper respiratory infection. Upon presentation patient's blood pressure was also elevated with a systolic in the 200s. Patient is anxious she has been reassured. Patient will be discharged home to follow-up with PCP and design drafter. Denies any abdominal pain, nausea or vomiting. She has been eating and drinking well. Review of Systems Review of Systems: all other systems reviewed are negative [facility] Medical History Medical History Anxiety (Acute) Asthma (Acute) CAD (coronary artery disease) (Acute) Chest pain (Acute) Diabetes (Acute) GERD (gastroesophageal reflux disease) (Acute) HTN (hypertension) (Acute) History of hysterectomy (Acute) Non-STEMI (non-ST elevated myocardial infarction) (Acute) Surgical History Surgical History History of lumpectomy of right breast (Acute) Hx of appendectomy (Acute) Hx of cholecystectomy (Acute) Stented coronary artery (Acute) Family History Family History Other No significant family history Social History Social History Substance History: No History of Abuse Second Hand Smoke Exposure: No Smoking Status: Never smoker How Often Do You Have a Drink Containing Alcohol: Never Recent Travel in [facility] [place] within the Last 8 Weeks: No Immunization History Tetanus Immunization: >5 Years Medications and Allergies Allergies Allergy/AdvReac Type Severity Reaction Status Date / Time ciprofloxacin Allergy Severe HIVES Verified 04/26/18 23:52 doxycycline Allergy Severe 'BUMPS' Verified 04/26/18 23:52 egg Allergy Severe Hives Verified 04/26/18 23:52 Fish Containing Products Allergy Severe SWELLING Verified 04/26/18 23:52 haloperidol Allergy Severe ITCHING Verified 04/26/18 23:52 AND SWELLING iodine Allergy Severe THROAT Verified 04/26/18 23:52 SWELLS iohexol Allergy Severe ITCHING Verified 04/26/18 23:52 AND SWELLING penicillin G Allergy Severe THROAT Verified 04/26/18 23:52 SWELLS potassium iodide Allergy Severe THROAT Verified 04/26/18 23:52 SWELLS povidone-iodine Allergy Severe THROAT Verified 04/26/18 23:52 SWELLS sodium iodide Allergy Severe THROAT Verified 04/26/18 23:52 SWELLS sodium iodide Allergy Severe THROAT Verified 04/26/18 23:52 SWELLS nitrofurantoin Allergy Mild Hives Verified 04/26/18 23:52 Home Medications Medication Instructions Recorded Confirmed Type albuterol sulfate 2 puff INHALATION Q4-6H PRN 12/24/17 04/27/18 History amlodipine 5 mg PO DAILY 12/24/17 04/27/18 History aspirin 81 mg PO DAILY 12/24/17 04/27/18 History captopril 25 mg PO BID 12/24/17 04/27/18 History metformin 500 mg PO BID 12/24/17 04/27/18 History metoprolol succinate 50 mg PO DAILY 12/24/17 04/27/18 History pantoprazole [Protonix] 20 mg PO DAILY 12/24/17 04/27/18 History pravastatin 40 mg PO DAILY 12/24/17 04/27/18 History ticagrelor [Brilinta] 60 mg PO BID 12/24/17 04/27/18 History chlordiazepoxide HCl 25 mg PO DAILY PRN 04/27/18 04/27/18 History Active Medications: Active Medications Acetaminophen (Tylenol) 500 mg PO Q4H PRN PRN Reason: HEADACHE Last Admin: 04/27/18 04:12 Dose: 500 mg Hydrocodone Bitart/Acetaminophen ([place] 7.5/325) 1 tab PO Q4H PRN PRN Reason: PAIN SCALE 1 TO 5 Albuterol (Ventolin Hfa Inh) 2 puff INH Q4H PRN PRN Reason: SHORTNESS OF BREATH Amlodipine Besylate (Norvasc) 5 mg PO DAILY [facility] Last Admin: 04/27/18 09:24 Dose: 5 mg Aspirin (Aspirin) 325 mg PO DAILY [facility] Last Admin: 04/27/18 09:23 Dose: 325 mg Captopril (Capoten) 25 mg PO BID [facility] Last Admin: 04/27/18 09:23 Dose: 25 mg Dextrose (D50w Vial) 50 ml IV.PUSH UNSCH PRN PRN Reason: PER HYPOGLYCEMIA PROTOCOL Glucagon (Glucagon Inj) 1 mg OTHER PRN PRN PRN Reason: for Hypoglycemia Protocol Heparin Sodium (Porcine) (Heparin Inj) 5,000 units SQ Q8H [facility] Last Admin: 04/27/18 09:45 Dose: Not Given Insulin Aspart (Novolog Insulin Correctional Sugar Inj) 0 unit SQ ACHS AND 3AM CAR; Protocol Last Admin: 04/27/18 09:24 Dose: Not Given Metoprolol Succinate (Toprol Xl) 50 mg PO DAILY [facility] Last Admin: 04/27/18 09:25 Dose: 50 mg Morphine Sulfate (Morphine Inj) 2 mg IV.PUSH Q3H PRN PRN Reason: PAIN SCALE 6 TO 10 Nitroglycerin (Nitro-Bid 2% Oint) 1 inch TOPICAL Q6HR [facility] Last Admin: 04/27/18 05:41 Dose: 1 inch Pantoprazole Sodium (Protonix) 20 mg PO DAILY [facility] Last Admin: 04/27/18 09:24 Dose: 20 mg Pravastatin Sodium (Pravachol) 40 mg PO DAILY [facility] Last Admin: 04/27/18 09:23 Dose: 40 mg Sodium Chloride (Ns Flush) 2 ml IV.FLUSH UNSCH PRN PRN Reason: FLUSH AFTER USING IV ACCESS Last Admin: 04/26/18 23:57 Dose: 2 ml Sodium Chloride (Ns Flush) 2 ml IV.FLUSH BID [facility] Last Admin: 04/27/18 09:26 Dose: 2 ml Sodium Chloride (Ns Flush) 2 ml IV.FLUSH PRN PRN PRN Reason: FLUSH AFTER USING IV ACCESS Temazepam (Restoril) 15 mg PO HS PRN PRN Reason: INSOMNIA Ticagrelor (Brilinta) 90 mg PO BID CAR Last Admin: 04/27/18 09:45 Dose: Not Given Physical Exam Vital signs: Vital Signs 04/26/18 23:40 04/27/18 00:20 04/27/18 00:21 Temperature 97.4 F L Pulse Rate 78 77 Respiratory Rate 20 20 Blood Pressure 202/85 H 203/97 H Pulse Oximetry 93 L 93 L 91 L 04/27/18 00:24 04/27/18 01:22 04/27/18 03:02 Temperature Pulse Rate 82 76 Respiratory Rate 20 20 Blood Pressure 196/92 H 195/95 H Pulse Oximetry 95 96 98 04/27/18 03:30 04/27/18 03:58 04/27/18 04:00 Temperature 97.8 F Pulse Rate 78 75 Respiratory Rate 20 22 Blood Pressure 195/90 H 100/58 L Pulse Oximetry 96 97 04/27/18 08:00 Temperature Pulse Rate Respiratory Rate Blood Pressure Pulse Oximetry 97 Intake & Output 04/26/18 04/27/18 04/27/18 18:59 06:59 18:59 Weight 85.8 kg Other: # Voids 2 Weight On Admission 85.8 kg Narrative: GENERAL: Well-developed, well-nourished patient in [facility]. SKIN: Warm and dry. No rash. HEAD: Normocephalic. Atraumatic. EYES: Pupils equal and round. No scleral icterus. No injection or drainage. ENT: No nasal bleeding or discharge. Mucous membranes pink and moist. NECK: Supple. Trachea midline. CARDIOVASCULAR: Regular rate and rhythm. S1, S2 noted. No murmur appreciated. Reproducible chest pain to palpation RESPIRATORY: No accessory muscle use. Rhonchi. Breath sounds equal bilaterally. GASTROINTESTINAL: Abdomen soft, non-tender, nondistended. Normoactive bowel sounds x4. MUSCULOSKELETAL: No obvious deformities. Extremities without clubbing, cyanosis , or edema. NEUROLOGICAL: Awake and alert. No obvious cranial nerve deficits. Motor grossly within normal limits. 5/5 muscle strength in bilateral upper and lower extremities. Normal speech. PSYCHIATRIC: Appropriate mood and affect; insight and judgment normal. Results Labs CBC & Chem 7: 04/26/18 23:45 04/26/18 23:45 Imaging Impressions Chest X-Ray 04/26/18 23:47 CONCLUSION: Cardiomegaly. Clear lungs. Caprini VTE Risk Assessment Caprini VTE Risk Assessment: Moderate/High Risk (score >= 2) Caprini Risk Assessment Model: Point Value = 1 Point Value = 2 Point Value = 3 Point Value = 5 Age 41-60 Minor surgery BMI > 25 kg/m2 Swollen legs Varicose veins or History of unexplained or recurrent spontaneous Oral contraceptives or hormone replacement Sepsis (< 1 month) Serious lung disease, including pneumonia (< 1 month) Abnormal pulmonary function Acute myocardial infarction Congestive heart failure (< 1 month) History of inflammatory bowel disease Medical patient at bed rest Age 61-74 Arthroscopic surgery Major open surgery (> 45 min) Laparoscopic surgery (> 45 min) Malignancy Confined to bed (> 72 hours) Immobilizing plaster cast Central venous access Age >= 75 History of VTE Family history of VTE Factor V Leiden Prothrombin [id number] Lupus anticoagulant Anticardiolipin antibodies Elevated serum homocysteine Heparin-induced thrombocytopenia Other congenital or acquired thrombophilia Stroke (< 1 month) Elective arthroplasty Hip, pelvis, or leg fracture Acute spinal cord injury (< 1 month) Prophylaxis Regimen: Total Risk Factor Score Risk Level Prophylaxis Regimen 0-1 Low Early ambulation 2 Moderate Order ONE of the following: *Sequential Compression Device (SCD) *Heparin 5000 units SQ BID 3-4 Higher Order ONE of the following medications: *Heparin 5000 units SQ TID *Enoxaparin/Lovenox 40 mg SQ daily (WT < 150 kg, CrCl > 30 mL/min) *Enoxaparin/Lovenox 30 mg SQ daily (WT < 150 kg, CrCl > 10-29 mL/min) *Enoxaparin/Lovenox 30 mg SQ BID (WT < 150 kg, CrCl > 30 mL/min) AND/OR *Sequential Compression Device (SCD) 5 or more Highest Order ONE of the following medications: *Heparin 5000 units SQ TID (Preferred with Epidurals) *Enoxaparin/Lovenox 40 mg SQ daily (WT < 150 kg, CrCl > 30 mL/min) *Enoxaparin/Lovenox 30 mg SQ daily (WT < 150 kg, CrCl > 10-29 mL/min) *Enoxaparin/Lovenox 30 mg SQ BID (WT < 150 kg, CrCl > 30 mL/min) AND *Sequential Compression Device (SCD) Assessment and Plan Plan Ms. Rodriguez is a pleasant 67-year-old female with a history of CAD, hypertension, hyperlipidemia, diabetes mellitus who presented to the emergency department with chest pain. Chest pain, reproducible on palpation History of CAD status post stent placement 2 years ago Hypertension Hyperlipidemia Patient presents with chest pain that is reproducible on palpation. -Patient states that she has been coughing and has been congested for several days with runny nose and sore throat. -ACS ruled out with serial EKGs and serial troponins. Cardiac telemetry overnight showing no acute arrhythmias or changes. -Patient follows closely with a design drafter, Dr. Engel, will encourage patient to follow with him as needed. -Patient was offered a cardiac stress test although I do not believe this is cardiac related, she states that she would rather follow with her design drafter. Her last stress test was in January 2018. Patient also had a recent echocardiogram in the office with reports of no acute changes. -We will continue home medications as prescribed by her PCP and design drafter. Upper respiratory infection, likely viral Oral thrush -Upon exam patient has oral thrush, as well as white exudate in the back of her throat. -Patient complains of sore throat as well as cough and congestion and subjective fevers at home. -Denies any recent antibiotic use. -Will give patient Z-andressa. -Encourage hydration and rest. -Follow-up PCP. Diabetes mellitus Continue home medications. Home. Follow-up PCP and design drafter. Rx is written. Diet and activity as tolerated. Patient stable and agreeable to plan. H&P: Quality VTE Deep Vein Thrombosis/Pulmonary Embolism Present on Admission: No
[2018-04-27 10:37] VITALS: RESP 20; TEMP 96.4; O2SAT 93
[2018-04-27] MEDS ORDERED: Azithromycin 250 MG Tablet PO ONE (11:00)
[2018-04-27 12:56] VITALS: BP 144/78
[2018-04-27 12:57] VITALS: PULSE 86
--- NOTE | 2018-04-27 18:20 | ECG ---
Date Performed: 04/27/2018 Time Performed: 05:30:38 PTAGE: 67 years EKG: Sinus rhythm REVERSED LEADS MILD ST DEPRESSION ABNORMAL ECG PREVIOUS TRACING : 04/27/2018 00.03 Since the previous tracing, no significant change noted DOCTOR: Tobi Paredes Interpretating Date/Time 04/27/2018 18:18:29
--- NOTE | 2018-04-29 07:18 | ECG ---
Date Performed: 04/27/2018 Time Performed: 00:03:10 PTAGE: 67 years EKG: Sinus rhythm BORDERLINE LEFT AXIS DEVIATION VOLTAGE CRITERIA FOR LVH ABNORMAL ECG PREVIOUS TRACING : 12/24/2017 05.37 Compared to previous tracing, rate slower DOCTOR: Tobi Paredes Interpretating Date/Time 04/29/2018 07:16:45
== END 2018-04-27 13:02 | disposition home or self-care (01) ==
LOC: PHED 23:34 → PHEDA 23:34 → PH3 04-27 03:39
PROVIDERS: ADMIT Hospitalist; ATTEND Hospitalist
DX: Z95.5 Presence of coronary angioplasty implant and graft; I11.9 Hypertensive heart disease without heart failure; H91.90 Unspecified hearing loss, unspecified ear; F41.9 Anxiety disorder, unspecified; M54.9 Dorsalgia, unspecified; I25.10 Atherosclerotic heart disease of native coronary artery without angina pectoris; I25.2 Old myocardial infarction; Z79.02 Long term (current) use of antithrombotics/antiplatelets; J45.909 Unspecified asthma, uncomplicated; R07.89 Other chest pain; Z79.899 Other long term (current) drug therapy; E11.9 Type 2 diabetes mellitus without complications; Z79.82 Long term (current) use of aspirin; K21.9 Gastro-esophageal reflux disease without esophagitis; J06.9 Acute upper respiratory infection, unspecified; E78.5 Hyperlipidemia, unspecified; R11.2 Nausea with vomiting, unspecified
CPT/HCPCS: 71010; 71045; 80053; 82550; 82948; 82962; 83690; 84484; 85025; 87275; 87276; 87804; 93005; 96372; 99285; G0378; J1815; J2060; J2405